=== PATIENT | female | born 1935 | race Caucasian/White ===

== ENCOUNTER → 2016-03-21 | Outpatient (CLI) | payer BC ==
[~2016-03-21] MED LIST: ESTCR
[2016-03-21 15:09] LABS: ESTIMATED AVERAGE GLUCOSE 123 mg/dl; HA1C FLAG Normal (Normal)
[2016-03-21 15:20] LABS: ALT/SGPT 24 U/L (12-78); BLOOD UREA NITROGEN 12 mg/dl (7-18); BUN/CREATININE RATIO 20.5 (10-20); CALCIUM 9.4 mg/dl (8.5-10.1); CARBON DIOXIDE 28 mmol/L (21-32); CHLORIDE 102 mmol/L (98-107); CHOLESTEROL 192 mg/dl (0-200); CREATININE 0.57 mg/dl (0.60-1.20); GLUCOSE 75 mg/dl (70-99); SODIUM 140 mmol/L (136-145); TRIGLYCERIDES 146 mg/dl (0-150); VERY LOW DENSITY LIPOPROT CALC 29 mg/dl
[2016-03-21 15:23] LABS: ALB/GLOB RATIO 0.9 (0.9-2); ALKALINE PHOSPHATASE 49 U/L (45-117); AST/SGOT 23 U/L (15-37); CHOLESTEROL/HDL RATIO 3.9; HDL CHOLESTEROL 49 mg/dl; LDL CHOLESTEROL CALCULATED 114 mg/dl
== END | disposition home or self-care (01) ==
LOC: C.LAB 12:37
PROVIDERS: ATTEND Internal Medicine Geriatric Medicine
DX: E78.5 Hyperlipidemia, unspecified (principal); R73.9 Hyperglycemia, unspecified; I10 Essential (primary) hypertension; L57.0 Actinic keratosis

== ENCOUNTER → 2016-10-17 | Outpatient (CLI) | payer BC ==
[2016-10-17 16:44] LABS: BASO % 0.5 %; BASO ABS # 0.03 K/uL (0-0.2); COMPLETE YES; EOS % 3.9 %; HEMATOCRIT 38.7 % (37-47); IG% 0.2 %; LYMPH ABS # 2.04 K/uL (1.2-3.4); MEAN CELL VOLUME 90.8 fL (80-100); MEAN CORPUSCULAR HEMOGLOBIN 31.2 pg (25-34); MEAN CORPUSCULAR HGB CONC 34.4 g/dl (32-36); MEAN PLATELET VOLUME 10.3 fL (7.4-10.4); MONO % 9.2 %; NEUT % 50.2 %; PLATELET COUNT 261 K/uL (130-400); RED BLOOD COUNT 4.26 M/uL (4.2-5.4); WHITE BLOOD COUNT 5.66 K/uL (4.8-10.8)
[2016-10-17 17:10] LABS: BLOOD UREA NITROGEN 10 mg/dl (7-18); BUN/CREATININE RATIO 14.5 (10-20); CALCIUM 9.5 mg/dl (8.5-10.1); CARBON DIOXIDE 29 mmol/L (21-32); CHLORIDE 102 mmol/L (98-107); CREATININE 0.71 mg/dl (0.60-1.20); GLUCOSE 93 mg/dl (70-99); POTASSIUM 3.9 mmol/L (3.5-5.1); SODIUM 137 mmol/L (136-145)
[2016-10-17 17:21] LABS: CHOLESTEROL 191 mg/dl (0-200); CHOLESTEROL/HDL RATIO 3.2; HDL CHOLESTEROL 59 mg/dl; LDL CHOLESTEROL CALCULATED 100 mg/dl; TRIGLYCERIDES 162 mg/dl (0-150); VERY LOW DENSITY LIPOPROT CALC 32 mg/dl
== END | disposition home or self-care (01) ==
LOC: C.LAB 15:43
PROVIDERS: ATTEND Internal Medicine Geriatric Medicine
DX: M35.3 Polymyalgia rheumatica (principal); E03.9 Hypothyroidism, unspecified; R73.9 Hyperglycemia, unspecified; I10 Essential (primary) hypertension; E55.9 Vitamin D deficiency, unspecified; M81.0 Age-related osteoporosis without current pathological fracture; E78.5 Hyperlipidemia, unspecified

== ENCOUNTER → 2017-05-21 | Outpatient (CLI) | payer BC ==
[2017-05-21 10:34] LABS: HEMOGLOBIN A1C 5.8 % (4.5-5.6)
[2017-05-21 10:45] LABS: ALBUMIN 3.6 gm/dl (3.4-5.0); ALT/SGPT 26 U/L (12-78); AST/SGOT 21 U/L (15-37); BLOOD UREA NITROGEN 10 mg/dl (7-18); CALCIUM 8.8 mg/dl (8.5-10.1); CARBON DIOXIDE 27 mmol/L (21-32); CREATININE 0.67 mg/dl (0.60-1.20); GLUCOSE 93 mg/dl (70-99); POTASSIUM 3.7 mmol/L (3.5-5.1); SODIUM 137 mmol/L (136-145)
[2017-05-21 10:48] LABS: ALKALINE PHOSPHATASE 49 U/L (45-117); CHOLESTEROL 179 mg/dl (0-200); LDL CHOLESTEROL CALCULATED 95 mg/dl; TOTAL PROTEIN 7.4 gm/dl (6.4-8.2)
== END | disposition home or self-care (01) ==
LOC: C.LAB 09:15
PROVIDERS: ATTEND Physician Assistant Medical
DX: E78.5 Hyperlipidemia, unspecified (principal); I11.0 Hypertensive heart disease with heart failure; L57.0 Actinic keratosis; Z79.52 Long term (current) use of systemic steroids

== ENCOUNTER → 2017-07-11 | Outpatient (CLI) | payer BC | END | disposition home or self-care (01) | LOC: C.PAPS 16:09 | PROVIDERS: ATTEND Obstetrics & Gynecology | DX: L90.0 Lichen sclerosus et atrophicus (principal) ==

== ENCOUNTER 2024-06-25 21:29 | Inpatient (IN) ==
[~2024-06-25 21:29] MED LIST changes: +ATROPINE SULFATE 0.1 MG/ML 10ML SYR IV ONE; -ESTCR; +SODIUM BICARB 8.4% INJ 50 MEQ/50 ML SYR IV ONE; +fentaNYL citrate PF 100 MCG/2 ML VIAL IV ONE
[2024-06-25] MEDS ORDERED: STAT IV Infusion **Titration per Protocol STA ×2 (21:39→23:26)
--- NOTE | 2024-06-25 21:41 | Emergency Department Note ---
Impression & Plan Cardiac arrest Admission ED Provider Note HPI: History obtained from EMS report. The patient is a 88-year-old female who presents the emergency department in acute respiratory failure. Per EMS report the patient was eating dinner with her when she seemed to have an acute event where she began to cough and became short of breath. Patient then began to develop some significant increased work of breathing and EMS was contacted by her . En route, the patient developed significant respiratory distress and was initially placed on nonrebreather mask and then eventually bag mask ventilation secondary to development of lethargy and decreased respirations. On arrival here to the ED the patient is currently on bag mask ventilation. She appears to be lethargic as well as cyanotic and she is not able to provide any history. ROS: - Per HPI Differential Diagnosis: Acute decompensated respiratory failure, aspiration event, pulmonary embolism, acute coronary syndrome/ST elevation myocardial infarction, flash pulmonary edema, amongst other potential pathologies. *Outpatient medications and allergy history reviewed. PE: General: Lethargic, mildly cyanotic HEENT: Normocephalic, trachea midline Eyes: No scleral erythema Pulmonary: Coarse bilaterally with diminished breath sounds bilaterally Cardio: Regular rate and rhythm GI: Abdomen is soft to palpation, nondistended : No apparent suprapubic tenderness MSK: No evidence of trauma or malformation of the extremities, no edema Skin: No evidence of rash Neuro: Patient is lethargic Psychiatric: Not applicable INDEPENDENT INTERPRETATIONS: phototypesetting equipment monitor: (As interpreted by myself): - An order was placed for continuous cardiac monitoring - Patient was noted to be in sinus rhythm with a rate of 72 EKG: (As interpreted by myself): Rate: 152 Rhythm: Apparent atrial fibrillation with RVR Intervals: QTc 521 ms, otherwise within normal limits ST changes: No ST elevation Time: 8 Chest x-ray: (As interpreted by myself): ET tube appears to be in appropriate positioning with evidence of pulmonary edema Interventions provided in ED: - IV fentanyl, IV propofol bolus and drip, IV Levophed, IV Zosyn, IV fluid bolus, epinephrine, IV bicarbonate amp Endotracheal intubation: Rapid sequence intubation medications: None Utilizing glide scope sized 3 glide scope blade was advanced to the vallecula with visualization of the vocal cords. Visualization was lost secondary to frothy sputum and the GlideScope blade was then removed and cleansed. Blade was then reinserted with good visualization of the cords obtained. Size [7.5] endotracheal tube was advanced utilizing glide scope stylette and passed through the vocal cords under direct visualization. ET tube balloon was inflated. Appropriate color change was achieved with capnography. Breath sounds auscultated bilaterally following placement of the ET tube. Medical Decision Making: Shortly after the patient arrived, she became more alert and turned her body and showed resistance against bag mask ventilation, this was briefly halted secondary to the patient's mild agitation and the patient quickly became more lethargic and pale/cyanotic and bradycardic. Patient then acutely went into cardiac arrest and compressions were initiated. Patient was intubated at this time by myself with ongoing ACLS protocol in place, please see procedure note for details. Patient was given 2 rounds of epinephrine and 1 amp of sodium bicarb while compressions were ongoing, on pulse check the patient did have a strong palpable femoral pulse palpated by myself and therefore compressions were halted. Lab work was obtained that shows a mild leukocytosis of 15.35, hemoglobin is normal, platelet count is normal, CMP shows a hyponatremia 128, initial lactic acid is markedly elevated at 9.5, initial troponin is elevated at 231. EKG was obtained following patient's cardiac arrest that appears to be consistent with atrial fibrillation with a rate of 152. Patient was initially placed on propofol for sedation and also given a dose of IV fentanyl as she became more alert after the intubation when she regained pulses. She was hypertensive at this time, during the intubation frothy sputum was noted and in conjunction with her hypertension and acute respiratory failure I do have concern for a potential flash pulmonary edema. Other considerations would include aspiration pneumonia as her symptoms seem to have happened acutely when she was eating dinner with her this evening. Chest x-ray does appear to be consistent with patchy bilateral infiltrates, ET tube appears to be in appropriate positioning above the ebony. Blood cultures were ordered and the patient was started on IV Zosyn. The patient's oxygenation did improve greatly following endotracheal tube placement. OG tube was also placed. I discussed the patient's presentation with the on-call bowl sander midlevel provider as well as the on-call hospitalist, Dr. Bland. At this time we will plan for inpatient admission for further workup of the patient's acute respiratory failure and cardiac arrest. I discussed the patient's presentation and all of the above with her who later arrived here to the hospital. He is updated and aware and does confirm that the patient is full code. Patient was placed for admission in guarded condition. Consultants/Discussions held with other healthcare providers: - Hospitalist, Dr. Bland - Intensive care unit, Mounika Stinson PA-C / Dr. Arteaga (attending) Disposition discussion held by myself with: - Patient's * CRITICAL CARE TIME: ( 45 ) minutes - Stabilization of patient with acute respiratory failure/decompensation resulting ultimately in cardiac arrest and initiation of ACLS protocol, time spent at the bedside independent of procedures interpretation of diagnostic studies, discussion with family, discussion with other healthcare providers and arrangement of admission to the ICU. Diagnosis: 1. Acute hypoxic respiratory failure 2. Cardiac arrest, acute 3. Lactic acidosis, acute 4. Elevated troponin, acute Disposition: Admission to ICU Karan Contreras DO Emergency Medicine Past Med/Surg History Problem List (Updated 06/26/24 @ 02:15 by Karan Contreras DO) Cardiac arrest (Acute) Septic shock Lactic acidosis URI (upper respiratory infection) Multifocal pneumonia Acute hypoxic respiratory failure Respiratory arrest Chronic rhinitis Chronic cough Leg length discrepancy RLE 83.6 cm, LLE 82.6 cm Osteoarthritis of left knee Elevated hemoglobin A1c Vitamin D deficiency (Acute) Urge incontinence of urine (Acute) Stress incontinence in female (Acute) Polymyalgia rheumatica (Acute) Osteoporosis (Chronic) Lichen sclerosus et atrophicus (Acute) Gastroesophageal reflux disease (Acute) Dyslipidemia (Acute) Chronic osteoarthritis (Acute) History of arthroscopy LEFT KNEE MENISCUS SURGERY Hypertension (Chronic) Medical History Actinic keratosis Cataract Chronic neck pain Cystocele, midline Herpes zoster History of prediabetes Postherpetic neuralgia Rectocele Stricture, artery Subclinical hypothyroidism Surgical History History of bladder suspension procedure History of carpal tunnel release History of cataract surgery History of colonoscopy History of esophagogastroduodenoscopy (EGD) History of hysterectomy History of surgery History of tonsillectomy Family History Mother Congestive heart failure Diabetes Colon cancer Father Unknown Colon cancer Benign polyp of large intestine (Polyps) Brother Alzheimer disease Denies family history of Ovarian cancer Prostate cancer Myocardial infarction Breast cancer Social History Smoking Status: Never smoker Second Hand Exposure: No; Do You Dip or Chew Tobacco: No; Hx Alcohol Use: Yes Alcohol type: wine Alcohol Intake Frequency: 4 or More x per/Week Hx Substance Use: No Preferred Language: Romanian Communication Ability: Impaired Visual Impairment: No Limitations Hearing Ability: Normal Last Trimmer Required: No Beliefs That Will Affect Care: None marital status: Current Living Situation: Spouse current occupational status: retired How many Children do You have: 5 Other Information That Helps Us Care for You: No Feels Safe at Home: Yes Safety Concerns: Feels Safe At This Time Childhood Exposure to Second-Hand Smoke: Yes Diet: regular caffeine: Yes during the past year weight has: remained stable Dental Care, Regularly: Yes Physical Activity Frequency: Daily Seatbelt Use: always Sunscreen Use: Yes Do you think of yourself as: straight/heterosexual Assistive Devices: Glasses Allergies Allergies Allergy/AdvReac Type Severity Reaction Status Date / Time ciprofloxacin [From Cipro] Allergy Unknown Unknown Verified 06/25/24 21:48 mold Allergy Unknown Verified 06/25/24 21:48 Quinolones AdvReac Mild DIARRHEA Verified 04/23/24 14:50 Home Meds Home Medications Medication Instructions Recorded Confirmed calcium 200 mg (as 2 tab PO DAILY 11/19/18 06/25/24 citrate)-vitamin D3 6.25 mcg (250 unit) tablet multivitamin 1 tab PO DAILY 11/24/18 06/25/24 vit C 250 mg-vit E 200 unit-zinc 1 tab PO BID 04/24/23 06/25/24 12.5 mg-copper 1 [id number] tablet (ICaps AREDS2 (copper citrate)) cholecalciferol (vitamin D3) 25 25 mcg PO DAILY 11/12/23 06/25/24 mcg (1,000 unit) capsule fluoride (sodium) 1.1 % dental gel 1 applic dental DAILY 06/25/24 06/25/24 gabapentin 100 mg capsule See Rx Instructions .Route .COMPLEX 06/25/24 06/25/24 losartan 100 mg tablet 100 mg PO DAILY 06/25/24 06/25/24 Previous Rx's Medication Instructions Recorded fluticasone propionate 50 2 spray intranasal DAILY PRN nasal 04/23/24 mcg/actuation nasal congestion #16 grams spray,suspension ipratropium bromide 42 mcg (0.06 2 spray intranasal .COMPLEX #15 mL 04/23/24 %) nasal spray estradiol 0.01% (0.1 mg/gram) 3 g vaginal 2XWK #42.5 grams 05/31/24 vaginal cream (Estrace) codeine 10 mg-guaifenesin 100 mg/5 5 ml PO BID PRN cough #118 mL 06/08/24 mL oral liquid guaifenesin 200 mg/5 mL oral liquid 200 mg (5 mL) PO Q4H PRN cough 06/17/24 #473 mL Results & Data (ED) Vital Signs Vital Signs - 24 hr 06/25/24 21:32 06/25/24 21:33 06/25/24 21:34 Temperature Temperature Source Pulse Rate 25 L 140 H 28 L Pulse Rate from SpO2 Sensor Pulse Rhythm Pulse Strength Respiratory Rate 24 Respiratory Effort / Characteristics Respiratory Depth Blood Pressure 190/108 H Blood Pressure Mean 117 Blood Pressure Position Pulse Oximetry Oxygen Delivery Method Mechanical Vent Fraction of Inspired Oxygen Sepsis Recent Fever Within 48 Hours Sepsis New/Unexplained Change in Mental Status Sepsis Action Taken by Nursing 06/25/24 21:36 06/25/24 21:39 06/25/24 21:40 Temperature Temperature Source Pulse Rate 148 H 150 H 137 H Pulse Rate from SpO2 Sensor Pulse Rhythm Pulse Strength Respiratory Rate 24 24 Respiratory Effort / Characteristics Respiratory Depth Blood Pressure 224/138 H Blood Pressure Mean 185 Blood Pressure Position Pulse Oximetry 92 Oxygen Delivery Method Mechanical Vent Fraction of Inspired Oxygen 80 Sepsis Recent Fever Within 48 Hours Sepsis New/Unexplained Change in Mental Status Sepsis Action Taken by Nursing 06/25/24 21:44 06/25/24 21:59 06/25/24 22:00 Temperature Temperature Source Pulse Rate 144 H 130 H 135 H Pulse Rate from SpO2 Sensor 136 H Pulse Rhythm Pulse Strength Respiratory Rate 24 25 H 24 Respiratory Effort / Characteristics Respiratory Depth Blood Pressure 212/124 H 148/97 H 108/67 Blood Pressure Mean 162 114 80 Blood Pressure Position Pulse Oximetry 94 Oxygen Delivery Method Mechanical Vent Mechanical Vent Mechanical Vent Fraction of Inspired Oxygen Sepsis Recent Fever Within 48 Hours Sepsis New/Unexplained Change in Mental Status Sepsis Action Taken by Nursing 06/25/24 22:06 06/25/24 22:06 06/25/24 22:06 Temperature 36.8 C Temperature Source Mccoy Cath ( Temp Sensing) Pulse Rate 132 H Pulse Rate from SpO2 Sensor Pulse Rhythm Regular Pulse Strength Normal Respiratory Rate 22 Respiratory Effort / Characteristics Mechanically Ventilated Mechanically Ventilated Respiratory Depth Normal Blood Pressure 148/97 H Blood Pressure Mean 114 Blood Pressure Position Lying Pulse Oximetry 94 Oxygen Delivery Method Mechanical Vent Mechanical Vent Mechanical Vent Fraction of Inspired Oxygen Sepsis Recent Fever Within 48 Hours No Sepsis New/Unexplained Change in Mental Status N/A Sepsis Action Taken by Nursing No Action Required 06/25/24 22:06 06/25/24 22:19 06/25/24 22:21 Temperature Temperature Source Pulse Rate 133 H 135 H Pulse Rate from SpO2 Sensor 132 H Pulse Rhythm Regular Pulse Strength Respiratory Rate 22 20 25 H Respiratory Effort / Characteristics Respiratory Depth Blood Pressure 71/49 L Blood Pressure Mean 56 Blood Pressure Position Pulse Oximetry 94 93 Oxygen Delivery Method Mechanical Vent Mechanical Vent Fraction of Inspired Oxygen 100 Sepsis Recent Fever Within 48 Hours Sepsis New/Unexplained Change in Mental Status Sepsis Action Taken by Nursing 06/25/24 22:24 06/25/24 22:25 06/25/24 22:26 Temperature Temperature Source Pulse Rate 120 H 122 H Pulse Rate from SpO2 Sensor Pulse Rhythm Pulse Strength Respiratory Rate 22 Respiratory Effort / Characteristics Respiratory Depth Blood Pressure 79/48 L 71/49 L Blood Pressure Mean 61 56 Blood Pressure Position Pulse Oximetry 94 Oxygen Delivery Method Mechanical Vent Fraction of Inspired Oxygen Sepsis Recent Fever Within 48 Hours Sepsis New/Unexplained Change in Mental Status Sepsis Action Taken by Nursing 06/25/24 22:30 06/25/24 22:33 06/25/24 22:35 Temperature Temperature Source Pulse Rate 122 H Pulse Rate from SpO2 Sensor 122 H Pulse Rhythm Pulse Strength Respiratory Rate 24 Respiratory Effort / Characteristics Respiratory Depth Blood Pressure 77/48 L 77/43 L 67/48 L Blood Pressure Mean 55 54 55 Blood Pressure Position Pulse Oximetry 96 Oxygen Delivery Method Mechanical Vent Fraction of Inspired Oxygen Sepsis Recent Fever Within 48 Hours Sepsis New/Unexplained Change in Mental Status Sepsis Action Taken by Nursing Laboratory Data 06/25/24 21:41 06/25/24 21:41 Lab Results 06/25/24 Range/Units 21:41 WBC 15.35 H (4.8-10.8) K/ul RBC 4.45 (4.20-5.40) M/uL Hgb 13.3 (12.0-16.0) g/dl Hct 41.4 (37.0-47.0) % MCV 93.0 (80.0-100.0) fL MCH 29.9 (25.0-34.0) pg MCHC 32.1 (32.0-36.0) g/dL RDW Std Deviation 45.0 (36.4-46.3) fL RDW Coeff of Jenny 13.3 (11.5-14.5) % Plt Count 270 (130-400) K/uL MPV 10.2 (9.4-12.4) fL Immature Gran % (Auto) 1.2 % Neut % (Auto) 56.4 % Lymph % (Auto) 37.7 % [place] % (Auto) 3.8 % Eos % (Auto) 0.3 % Baso % (Auto) 0.6 % Neut # (Auto) 8.65 H (1.40-6.50) K/uL Lymph # (Auto) 5.79 H (1.20-3.40) K/uL [place] # (Auto) 0.59 (0.11-0.59) K/uL Eos # (Auto) 0.05 (0.00-0.50) K/uL Baso # (Auto) 0.09 (0.00-0.20) K/uL Immature Gran # (Auto) 0.18 (0.01-0.20) K/uL Absolute Nucleated RBC 0.04 (0.00-0.12) K/uL Nucleated RBC % (auto) 0.3 % VBG pH < 7.00 L (7.36-7.41) VBG pCO2 84 H (38-50) mmHg VBG pO2 37 mmHg VBG HCO3 TNP VBG O2 Saturation < 60.0 % VBG Base Excess TNP Sodium 128 L (136-145) mmol/L Potassium 3.7 (3.5-5.1) mmol/L Chloride 95 L (98-107) mmol/L Carbon Dioxide 18 L (21-32) mmol/L Anion Gap 15 H (3-11) BUN 8 (6-23) mg/dl Creatinine 0.58 L (0.6-1.2) mg/dl Est Cr Clr Drug Dosing Not Reportable eGFR 88.08 BUN/Creatinine Ratio 13.8 (10-20) Glucose 291 H (70-99(Fasting)) mg/dl Lactate 9.5 H* (0.4-2.0) mmol/L Calcium 8.3 L (8.6-10.3) mg/dl Total Bilirubin 0.5 (0.2-1.0) mg/dl AST 32 (13-39) U/L ALT 18 (7-52) U/L Alkaline Phosphatase 73 (34-104) U/L Troponin I High Sens 231.9 H* (0-14) pg/ml Total Protein 6.5 (6.0-8.3) gm/dl Albumin 3.3 L (3.4-5.0) gm/dl Globulin 3.2 (2.5-4.0) gm/dl Albumin/Globulin Ratio 1.0 (0.9-2) Lipase 9 L (11-82) U/L Administered Medications Albuterol (Albut/Ipratrop 3mg/0.5mg Neb 3 Ml Vial) 3 ml NEB Q6R [facility]; Protocol Stop: 07/26/24 00:59 Last Admin: 06/26/24 01:54 Dose: 3 ml Documented By: EML Fentanyl Citrate (Fentanyl Bolus From Bag) 50 mcg IV Q60M PRN PRN Reason: Pain or Agitation Stop: 07/09/24 23:25 Last Admin: 06/26/24 00:32 Dose: 50 mcg Documented By: AUBRIEP Co-signed By: FRANK Propofol (Diprivan) 1,000 mg in 100 mls @ 7.95 mls/hr IV .[id number] [facility]; Protocol Stop: 06/28/24 22:14 Last Titration: 06/26/24 01:27 Dose: 25 mcg/kg/min, 8 mls/hr Documented By: Titration: 06/25/24 23:45 Dose: 20 mcg/kg/min, 6.4 mls/hr Documented By: Titration: 06/25/24 23:30 Dose: 15 mcg/kg/min, 4.8 mls/hr Documented By: Titration: 06/25/24 22:33 Dose: 10 mcg/kg/min, 3.2 mls/hr Documented By: Titration: 06/25/24 22:24 Dose: 20 mcg/kg/min, 6.4 mls/hr Documented By: Admin: 06/25/24 22:15 Dose: 15 mcg/kg/min, 4.8 mls/hr Documented By: JULIA Azithromycin (Zithromax) 500 mg in 255 mls @ 127.5 mls/hr IV Q24H [facility] Stop: 06/30/24 22:59 Last Admin: 06/25/24 23:52 Dose: 127.5 mls/hr Documented By: SAUD Norepinephrine Bitartrate (Levophed/D5w) 4 mg in 250 mls @ 13.913 mls/hr IV .[id number] [facility]; Protocol Stop: 07/25/24 22:44 Last Titration: 06/26/24 01:33 Dose: 0.07 mcg/kg/min, 13.9 mls/hr Documented By: FRANK Co-signed By: SAUD Admin: 06/25/24 22:34 Dose: 0.05 mcg/kg/min, 9.9 mls/hr Documented By: JULIA Co-signed By: UMU Fentanyl Citrate (Fentanyl Citrate) 2,500 mcg in 250 mls @ 7.5 mls/hr IV .[id number] [facility]; Protocol Stop: 07/09/24 23:29 Last Titration: 06/26/24 01:28 Dose: 75 mcg/hr, 7.5 mls/hr Documented By: FRANK Co-signed By: NEAL Admin: 06/25/24 23:55 Dose: 50 mcg/hr, 5 mls/hr Documented By: SAUD Co-signed By: PRADIP Dexamethasone 20 mg/ Dextrose 30 mls @ 60 mls/hr IV QAM [facility] Stop: 07/26/24 01:34 Last Admin: 06/26/24 01:55 Dose: 60 mls/hr Documented By: FRANK Insulin Aspart (Insulin Aspart Per Unit Charge) 0 units SC Q6 [facility] Stop: 07/26/24 00:59 Last Admin: 06/26/24 01:40 Dose: 3 units Documented By: FRANK Co-signed By: SAUD Miscellaneous (Icu Protocol For Hyperglycemia) 1 each N/A Q6 [facility] Stop: 06/28/24 00:00 Last Admin: 06/26/24 00:29 Dose: Not Given Documented By: SAUD Propofol (Propofol Bolus From Bag) 20 mg IV Q5M PRN PRN Reason: Sedation Stop: 06/28/24 22:07 Last Admin: 06/26/24 00:01 Dose: 20 mg Documented By: SAUD Co-signed By: FRANK Discontinued Medications Fentanyl Citrate (Fentanyl Citrate Pf 100 Mcg/2 Ml Vial) 50 mcg IV NOW STA Stop: 06/25/24 21:48 Last Admin: 06/25/24 22:00 Dose: Not Given Documented By: ADA Fentanyl Citrate (Fentanyl Citrate Pf 100 Mcg/2 Ml Vial) 50 mcg IV ONCE ONE Stop: 06/25/24 21:49 Last Admin: 06/25/24 21:48 Dose: 50 mcg Documented By: ADA Fentanyl Citrate (Fentanyl Citrate Pf 100 Mcg/2 Ml Vial) 50 mcg IV NOW STA Stop: 06/25/24 21:50 Last Admin: 06/25/24 21:55 Dose: Not Given Documented By: ADA Sodium Chloride (Nss) 1,000 mls @ 999 mls/hr IV .Q1H1M ONE Stop: 06/25/24 22:39 Last Infusion: 06/25/24 23:17 Dose: Infused Documented By: Admin: 06/25/24 22:16 Dose: 999 mls/hr Documented By: JULIA Sodium Bicarbonate 150 meq/ (Sterile Water) 1,150 mls @ 200 mls/hr IV .Q5H45M [facility] Stop: 07/25/24 22:14 Last Admin: 06/25/24 23:53 Dose: Not Given Documented By: SAUD Vancomycin HCl 1,000 mg/ (Sodium Chloride) 520 mls @ 200 mls/hr IV NOW ONE Stop: 06/26/24 01:20 Last Admin: 06/25/24 23:52 Dose: 200 mls/hr Documented By: SAUD Cefepime HCl (Maxipime 2000mg) 2,000 mg in 20 mls @ 5 mls/min IV NOW STA; Protocol Stop: 06/25/24 23:32 Last Admin: 06/25/24 23:52 Dose: 5 mls/min Documented By: SAUD Lactated Ringer's (Lr) 1,000 mls @ 999 mls/hr IV .Q1H1M ONE Stop: 06/26/24 01:17 Last Infusion: 06/26/24 01:30 Dose: Infused Documented By: Admin: 06/26/24 00:29 Dose: 999 mls/hr Documented By: LLP Miscellaneous (Rapid Sequence Induction Bag) Confirm Administered Dose 1 each N/A .STK-MED ONE Stop: 06/25/24 21:30 Last Admin: 06/25/24 22:16 Dose: 1 each Documented By: JULIA Blanca (Stat Iv Infusion Titration Per Protocol) 1 each N/A NOW STA Stop: 06/25/24 21:51 Last Admin: 06/25/24 23:56 Dose: 1 each Documented By: SAUD Blanca (Stat Iv Infusion Titration Per Protocol) 1 each N/A NOW STA Stop: 06/25/24 21:57 Last Admin: 06/25/24 23:56 Dose: 1 each Documented By: SUAD Blanca (Stat Iv Infusion Titration Per Protocol) 1 each N/A NOW STA Stop: 06/25/24 22:09 Last Admin: 06/25/24 23:55 Dose: 1 each Documented By: SAUD Blanca (Stat Iv Infusion Titration Per Protocol) 1 each N/A NOW STA Stop: 06/25/24 22:32 Last Admin: 06/25/24 23:55 Dose: 1 each Documented By: SAUD Blanca (Patient's Height &/Or Weight Needed) 1 each N/A NOW STA Stop: 06/25/24 21:33 Last Admin: 06/25/24 23:56 Dose: 1 each Documented By: SAUD Norepinephrine Bitartrate (Norepinephrine/D5w 4 Mg/250 Ml) Confirm Administered Dose 4 mg IV .STK-MED ONE Stop: 06/25/24 21:38 Last Admin: 06/25/24 21:57 Dose: Not Given Documented By: ADA Propofol (Propofol Iv Emulsion 10 Mg/Ml 100 Ml Vial) Confirm Administered Dose 1,000 mg IV .STK-MED ONE Stop: 06/25/24 21:52 Last Admin: 06/25/24 22:00 Dose: Not Given Documented By: ADA Propofol (Propofol Bolus From Bag) 20 mg IV Q5M PRN PRN Reason: Sedation Stop: 06/28/24 21:49 Last Admin: 06/25/24 21:58 Dose: 20 mg Documented By: ADA Co-signed By: JULIA Propofol (Propofol Bolus From Bag) 20 mg IV Q5M PRN PRN Reason: Sedation Stop: 06/28/24 21:55 Last Admin: 06/25/24 22:20 Dose: 20 mg Documented By: JULIA Co-signed By: SHEYLA Imaging Data Radiologist's Impression: KUB X-Ray 06/25/24 21:44 Exam(s): XR KUB EXAM: XR Abdomen, 1 View CLINICAL HISTORY: Reason for exam: og tube. TECHNIQUE: Frontal supine view of the abdomen/pelvis. COMPARISON: No relevant prior studies available. FINDINGS/IMPRESSION: Enteric tube tip in the stomach. Electronically signed by: Chela Hernandez M.D. 06/25/24 23:18 PM Discharge Plan Visit Data Chief Complaint: Respiratory Distress Stated Complaint: SOB, Cough ED Provider: Karan Contreras Discharge Problem: Cardiac arrest Patient Disposition: Admitted As Inpatient Discharge Instructions Interventions: ED Discharge Assessment Last Done: 06/25/24 23:32
[2024-06-25] MEDS ORDERED: NOREPINEPHRINE/D5W 4 MG/250 ML PLCT IV SCH (21:45)
[2024-06-25] MEDS: fentaNYL citrate PF 100 MCG/2 ML VIAL IV ONE (21:48)
[2024-06-25 21:54] LABS: Oxygen Saturation VBG < 60.0 %; PCO2 VBG 84 mmHg (38-50); PO2 VBG 37 mmHg
[2024-06-25] MEDS: fentaNYL citrate PF 100 MCG/2 ML VIAL IV STA ×2 (21:55→22:00)
[2024-06-25] MEDS: NOREPINEPHRINE/D5W 4 MG/250 ML IV ONE (21:57)
[2024-06-25] MEDS: PROPOFOL BOLUS FROM BAG IV PRN ×2 (21:58→22:20)
[2024-06-25] MEDS: PROPOFOL IV EMULSION 10 MG/ML 100 ML VIAL IV ONE (22:00)
[2024-06-25] MEDS ORDERED: propofoL 1,000 MG/100 ML VIAL IV SCH ×2 (22:00)
[2024-06-25 22:05] LABS: Hematocrit (blood only) 41.4 % (37.0-47.0); Hemoglobin 13.3 g/dl (12.0-16.0); Mean Corpuscular Hemoglobin 29.9 pg (25.0-34.0); Mean Corpuscular Hgb Conc 32.1 g/dL (32.0-36.0); Mean Platelet Volume 10.2 fL (9.4-12.4); Nucleated RBC # (auto) 0.04 K/uL (0.00-0.12); Nucleated RBC % (auto) 0.3 %; Platelet Count 270 K/uL (130-400); RDW Coefficient of Variation 13.3 % (11.5-14.5); Red Blood Count 4.45 M/uL (4.20-5.40); White Blood Count 15.35 K/ul (4.8-10.8)
[2024-06-25 22:07] LABS: pH VBG < 7.00 (7.36-7.41)
--- NOTE | 2024-06-25 22:07 | Critical Care Consultation ---
Date of Consultation June 25, 2024 Assessment & Plan (1) Respiratory arrest: (2) Acute hypoxic respiratory failure: (3) Multifocal pneumonia: (4) URI (upper respiratory infection): (5) Lactic acidosis: (6) Septic shock: Plan Reason Critically Ill: 1. Distributive shock, as result of vasoplegia +/- sepsis 2. Multifocal pneumonia, post-URI 3. Lactic acidosis 4. Acute hypoxic respiratory failure 2/2 #2 5. ARDS 2/2 #2 6. Respiratory arrest 7. Hypercapnia 2/2 #6, resolved 8. Hyperglycemia without history of DM 9. NSTEMI, type II Neuro - RASS GOAL -2 while respiratory status is critical Propofol and fentanyl gtt APAP PRN fever Daily ETOH, monitor off CIWA Cardiac - Continue norepinephrine for MAP goal > 65mmHg Admit EKG awaiting transmission, if repeat EKG shows ischemia we will start heparin infusion Troponin 281 in ED, likely demand ischemia. Trend to peak POCUS performed in ICU, no focal WMA, RV normal size without septal flattening, LVEF grossly intact, IVC > 50% collapsible Respiratory - Mechanically ventilated Not a current candidate for SAT/SBT SpO2 goal > 92% Pulmonary hygiene DuoNebs, consider Dexamethasone if no clinical improvement Repeat ABG improved with pH > 7.2. Will transition to ARDSNET protocol with high PEEP low Vt. Maintain RR 20. PEEP to 10 Repeat ABG in AM Sputum culture, BioFire pending GI - Diet: NPO except meds via OGT, TF in AM SUP: H2B Bowel regimen: Miralax RENAL/LYTES - Replete electrolytes as indicated Mccoy for accurate I/Os Trend lactate to clearance 1L LR given in ICU, judicious IVF Maintain net even to net negative ENDO - BG 140-180 per SCCM guidelines ISS if needed while inpatient Random cortisol pending Was on chronic prednisone but has been off for a while HEME - No acute concerns ID - Continue cefepime and azithromycin. Given post URI PNA and chronic autoimmune condition will cover for MRSA pending culture data BC x2 pending (drawn in ICU AFTER antibiotics given), UA pending, MRSA pending, procalcitonin pending, sputum culture pending, BioFire pending LINES/TUBES/DRAINS - PIV x2 Mccoy (Day #1) ETT (Day #1) OGT (Day #1) Patient's has consented for CVC if needed DVT PROPHYLAXIS - Enoxaparin DISPOSITION - ICU CODE STATUS - FULL per I have personally spent 46 minutes of critical care time in the direct management of this patient. This is a life/limb threatening event. This includes time spent evaluating patient, direct bedside care, chart review, placing orders, interpretation of diagnostic studies, discussion with consultants, patient, and family members, as well as other required patient management activities. This time is exclusive of all separately billable procedures, and teaching time and separate from and in addition to any other critical care service time. Thank you for allowing us to participate in the care of this patient. Please r efer to my attending physician's documentation for any further recommendations. Addendum 0430: Unfortunately the patient continues to clinically decline. She is now requiring 3 vasopressors to maintain perfusion. Despite ventilator optimization her pO2 remains in the 60s with PEEP 10 and FiO2 1.0. Given her frequent ventilator dyssynchrony I provided rocuronium bolus x1 and transitioned patient to ARDSNET lung-protective ventilation via high PEEP low Vt. With paralytic and ventilator changes she has shown improvement. When bolus wore off she again became dyssynchronous with the ventilator, thus we initiated continuous NMB. Fio2 is weaned to 60% with SpO2 remaining > 90%. LA improving slowly, now 6.8. CT Chest was finally reported - multiple fractures ribs c/w CPR, multifocal pneumonia, areas of pulmonary edema which are likely 2/2 the CPR. We will avoid additional IVF and consider gentle diuresis pending her AM metabolic panel. She has no history of heart failure, well-controlled HTN at baseline. PCR + COVID. Started on Decadron 20mg IV QD. Will continue ventilator optimization for now, could benefit from prone positioning, defer to Dr. Arteaga's expertise. Patient has made minimal urine overnight, total < 100cc. I do feel at this juncture she is developing multisystem organ failure and prognosis is extremely guarded. remains at bedside and reiterates current wishes for CPR in the event of cardiac arrest. History of Present Illness Reason for Consultation: Respiratory arrest Requesting Physician: Edwina Attending Physician: Edwina History of Present Illness Ms. Sofia Moore is an 88YOF with a history of [] who presented to [facility] ED from home on the evening of 06/25/2024 due to respiratory distress. Per report, patient was resting at home and developed a coughing fit with subsequent emesis and respiratory distress. EMS found her to be bradycardic to 30s. On arrival to ED the patient sustained cardiac arrest and received CPR x3 minutes, epinephrine x2 before ROSC. Patient was seen in ED A01 as I responded to CODE BLUE. She is intubated. Hypertensive to 224 systolic. Tachycardic to 150s. SpO2 90s on 100% FiO2. She awakens to voice. Follows commands. Pupils 3mm and reactive. Fentanyl and Propofol given with improvement in hemodynamics. Initial VBG pH < 7.00/84/37/?. This was immediately post-arrest. Remainder of labs remarkable for leukocytosis with neutrophil predominance, mild hyponatremia, HAGMA, LA 9.4, elevated troponin. CXR shows multifocal opacities on my view, awaiting read. CT ordered to further evaluate and is pending at this juncture. provided additional history. He and patient have both recently had URI with symptoms of coughing and congestion. For about 1 week Sofia has been feeling unwell. She has a chronic cough but in the past few days it has become productive of copious yellow sputum. This evening she had a prolonged coughing fit and vomited. denies aspiration, states it was small and did not even contain her recent meal. Allergies Allergy/AdvReac Type Severity Reaction Status Date / Time ciprofloxacin [From Cipro] Allergy Unknown Unknown Verified 06/25/24 21:48 mold Allergy Unknown Verified 06/25/24 21:48 Quinolones AdvReac Mild DIARRHEA Verified 04/23/24 14:50 Home Medications Medication Instructions Recorded Confirmed Type calcium 200 mg (as 2 tab PO DAILY 11/19/18 06/25/24 History citrate)-vitamin D3 6.25 mcg (250 unit) tablet multivitamin 1 tab PO DAILY 11/24/18 06/25/24 History vit C 250 mg-vit E 200 unit-zinc 1 tab PO BID 04/24/23 06/25/24 History 12.5 mg-copper 1 [id number] tablet (ICaps AREDS2 (copper citrate)) cholecalciferol (vitamin D3) 25 25 mcg PO DAILY 11/12/23 06/25/24 History mcg (1,000 unit) capsule fluticasone propionate 50 2 spray intranasal DAILY PRN nasal 04/23/24 06/25/24 Rx mcg/actuation nasal congestion #16 grams spray,suspension ipratropium bromide 42 mcg (0.06 2 spray intranasal .COMPLEX #15 mL 04/23/24 06/25/24 Rx %) nasal spray estradiol 0.01% (0.1 mg/gram) 3 g vaginal 2XWK #42.5 grams 05/31/24 06/25/24 Rx vaginal cream (Estrace) codeine 10 mg-guaifenesin 100 mg/5 5 ml PO BID PRN cough #118 mL 06/08/24 06/25/24 Rx mL oral liquid guaifenesin 200 mg/5 mL oral liquid 200 mg (5 mL) PO Q4H PRN cough 06/17/24 06/25/24 Rx #473 mL fluoride (sodium) 1.1 % dental gel 1 applic dental DAILY 06/25/24 06/25/24 History gabapentin 100 mg capsule See Rx Instructions .Route .COMPLEX 06/25/24 06/25/24 History losartan 100 mg tablet 100 mg PO DAILY 06/25/24 06/25/24 History Patient History Medical History Actinic keratosis Cataract Chronic neck pain Cystocele, midline Herpes zoster History of prediabetes Postherpetic neuralgia Rectocele Stricture, artery Subclinical hypothyroidism Surgical History History of bladder suspension procedure History of carpal tunnel release History of cataract surgery History of colonoscopy History of esophagogastroduodenoscopy (EGD) History of hysterectomy History of surgery History of tonsillectomy Family History Mother Congestive heart failure Diabetes Colon cancer Father Unknown Colon cancer Benign polyp of large intestine (Polyps) Brother Alzheimer disease Denies family history of Ovarian cancer Prostate cancer Myocardial infarction Breast cancer Social History Smoking Status: Never smoker Second Hand Exposure: No; Do You Dip or Chew Tobacco: No; Hx Alcohol Use: Yes Alcohol type: wine Alcohol Intake Frequency: 4 or More x per/Week Hx Substance Use: No Preferred Language: Tristanian Communication Ability: Impaired Visual Impairment: No Limitations Hearing Ability: Normal Analytical Statistician Required: No Beliefs That Will Affect Care: None marital status: Current Living Situation: Spouse current occupational status: retired How many Children do You have: 5 Other Information That Helps Us Care for You: No Feels Safe at Home: Yes Safety Concerns: Feels Safe At This Time Childhood Exposure to Second-Hand Smoke: Yes Diet: regular caffeine: Yes during the past year weight has: remained stable Dental Care, Regularly: Yes Physical Activity Frequency: Daily Seatbelt Use: always Sunscreen Use: Yes Do you think of yourself as: straight/heterosexual Assistive Devices: Glasses Review of Systems Review of Systems: Unobtainable due to endotracheal tube Physical Exam Constitutional: + ill appearing and + mechanically venti lated; no acute distress Eyes: PERRL, conjunctivae normal, anicteric sclerae ENMT: ETT in place Neck: trachea midline, no thyromegaly Respiratory: + labored breathing and + tachypneic Auscultation: + rales and + rhonchi diffuse rhonchi Cardiovascular: RRR, no murmur, no edema Gastrointestinal (Abdomen): normal bowel sounds, soft, nontender, no hepatosplenomegaly Musculoskeletal: no cyanosis or clubbing, extremities motor strength 5/5 Skin: no rashes, warm and dry Neurologic: moves all extremities follows commands, moves all extremities Genitourinary: Mccoy in place draining yellow urine Results & Data Results & Data Vital Signs (Past 12 Hours) Reviewed Laboratory Results Reviewed Diagnostic Findings Reviewed Medications Administered See [facility] Procedure Codes (Charges) Ventilator Management Ventilator Managment: 36813 Ventilation assist and management; Hospital in/, Coding Level of Care Code 33385 CRITICAL CARE 1ST 30-74M Diagnoses Respiratory arrest R09.2 Acute hypoxic respiratory failure J96.01 Multifocal pneumonia J18.9 URI (upper respiratory infection) J06.9 Lactic acidosis E87.20 Septic shock A41.9; R65.21 CPT Codes Ventilator Management - Ventilator Managment: [id number] Ventilation assist and management; Hospital in/obs, int ([id number]) Time Spent (min) 46
[2024-06-25] MEDS ORDERED: ALBUTEROL 0.083% NEBU SOLN 3 ML VIAL NEB PRN (22:11)
[2024-06-25] MEDS ORDERED: PIPERACILLIN/TAZOBACTAM 4.5 GM/100 ML BAG IV ONE (22:12)
[2024-06-25] MEDS: propofoL 1,000 MG/100 ML VIAL IV SCH (22:15)
[2024-06-25] MEDS: SODIUM CHLORIDE 0.9% 1,000 ML IV ONE (22:16)
[2024-06-25] MEDS: RAPID SEQUENCE INDUCTION BAG ONE (22:16)
[2024-06-25 22:20] LABS: Albumin Level 3.3 gm/dl (3.4-5.0); Anion Gap 15 (3-11); Bilirubin,Total 0.5 mg/dl (0.2-1.0); Calcium 8.3 mg/dl (8.6-10.3); Carbon Dioxide 18 mmol/L (21-32); Chloride 95 mmol/L (98-107); Potassium 3.7 mmol/L (3.5-5.1); Sodium 128 mmol/L (136-145)
[2024-06-25 22:26] LABS: Alanine Aminotransferase 18 U/L (7-52); Alkaline Phosphatase 73 U/L (34-104); Aspartate Aminotransferase 32 U/L (13-39); BUN Creatinine Ratio 13.8 (10-20); Blood Urea Nitrogen 8 mg/dl (6-23); Globulin 3.2 gm/dl (2.5-4.0); Glucose 291 mg/dl (70-99(Fasting)); Lipase 9 U/L (11-82); Total Protein 6.5 gm/dl (6.0-8.3)
[2024-06-25 22:29] LABS: Troponin I High Sensitivity 231.9 pg/ml (0-14)
[2024-06-25] MEDS ORDERED: VANCOMYCIN CONSULT ACTIVE PRN (22:31)
[2024-06-25] MEDS: NOREPINEPHRINE/D5W 4 MG/250 ML PLCT IV SCH (22:34)
[2024-06-25 22:57] LABS: Basophils # (auto) 0.09 K/uL (0.00-0.20); Basophils % (auto) 0.6 %; Eosinophils # (auto) 0.05 K/uL (0.00-0.50); Eosinophils % (auto) 0.3 %; Immature Granulocytes # (auto) 0.18 K/uL (0.01-0.20); Immature Granulocytes % (auto) 1.2 %; Lymphocytes # (auto) 5.79 K/uL (1.20-3.40); Lymphocytes % (auto) 37.7 %; Monocytes # (auto) 0.59 K/uL (0.11-0.59); Monocytes % (auto) 3.8 %; Neutrophils # (auto) 8.65 K/uL (1.40-6.50); Neutrophils % (auto) 56.4 %
--- NOTE | 2024-06-25 23:19 | XRay Report ---
Exam(s): XR KUB EXAM: XR Abdomen, 1 View CLINICAL HISTORY: Reason for exam: og tube. TECHNIQUE: Frontal supine view of the abdomen/pelvis. COMPARISON: No relevant prior studies available. FINDINGS/IMPRESSION: Enteric tube tip in the stomach. Electronically signed by: Chela Hernandez M.D. 06/25/24 23:18 PM
--- NOTE | 2024-06-25 23:32 | History & Physical Report ---
Date of Service June 25, 2024 Assessment & Plan (1) Septic shock: (2) Lactic acidosis: (3) Multifocal pneumonia: (4) Acute hypoxic respiratory failure: (5) Respiratory arrest: (6) Cardiac arrest: Plan 88 yo female PMHx HTN, HLD, PMR, GERD, osteoarthritis, incontinence, admitted after presenting as a code blue with EMS s/p ROSC #Septic Shock/Respiratory Arrest/Multifocal Pneumonia CXR with evidence of pneumonia, Chest CT pending Remains intubated, sedated on propofol and fentanyl Requiring pressor therapy on Levophed Vancomycin, azithromycin and cefepime initiated Stress dose steroids #Polymyalgia Rheumatica Not on chronic therapy #Other chronic conditions HTN - restart oral antihypertensives when appropriate Chronic cough - restart inhalers when appropriate FENGI: OG tube in place, nutrition consult ordered Code status: full code confirmed by DVT prophylaxis: per ICU Isolation: none Disposition: ICU Admission and Anticipated Discharge Date Admission Date: June 25, 2024 History of Present Illness Primary Care Provider: Ag Reveles, DO 88 yo female PMHx HTN, HLD, PMR, GERD, osteoarthritis, incontinence, admitted after presenting as a code blue with EMS. Chest compressions were performed. Per EMS, bradycardic to 30s prior to arrival. She received 2 of epinephrine and 1 of bicarb with ROSC. She was intubated and sedated. History is primarily obtained from . She was in her usual state of health until this evening. She finished dinner and began to have a coughing fit. Began expectorating reddish sputum and decompensated ultimately experiencing respiratory arrest. She is admitted to the ICU Allergies Allergy/AdvReac Type Severity Reaction Status Date / Time ciprofloxacin [From Cipro] Allergy Unknown Unknown Verified 06/25/24 21:48 mold Allergy Unknown Verified 06/25/24 21:48 Quinolones AdvReac Mild DIARRHEA Verified 04/23/24 14:50 Home Medications Medication Instructions Recorded Confirmed Type calcium 200 mg (as 2 tab PO DAILY 11/19/18 06/25/24 History citrate)-vitamin D3 6.25 mcg (250 unit) tablet multivitamin 1 tab PO DAILY 11/24/18 06/25/24 History vit C 250 mg-vit E 200 unit-zinc 1 tab PO BID 04/24/23 06/25/24 History 12.5 mg-copper 1 [id number]-[id number] tablet (ICaps AREDS2 (copper citrate)) cholecalciferol (vitamin D3) 25 25 mcg PO DAILY 11/12/23 06/25/24 History mcg (1,000 unit) capsule fluticasone propionate 50 2 spray intranasal DAILY PRN nasal 04/23/24 06/25/24 Rx mcg/actuation nasal congestion #16 grams spray,suspension ipratropium bromide 42 mcg (0.06 2 spray intranasal .COMPLEX #15 mL 04/23/24 06/25/24 Rx %) nasal spray estradiol 0.01% (0.1 mg/gram) 3 g vaginal 2XWK #42.5 grams 05/31/24 06/25/24 Rx vaginal cream (Estrace) codeine 10 mg-guaifenesin 100 mg/5 5 ml PO BID PRN cough #118 mL 06/08/24 06/25/24 Rx mL oral liquid guaifenesin 200 mg/5 mL oral liquid 200 mg (5 mL) PO Q4H PRN cough 06/17/24 06/25/24 Rx #473 mL fluoride (sodium) 1.1 % dental gel 1 applic dental DAILY 06/25/24 06/25/24 History gabapentin 100 mg capsule See Rx Instructions .Route .COMPLEX 06/25/24 06/25/24 History losartan 100 mg tablet 100 mg PO DAILY 06/25/24 06/25/24 History Past Med/Surg History Problem List (Updated 06/26/24 @ 15:14 by Myke Smith MD) Pulmonary hypertension Mitral regurgitation Cardiac arrest (Acute) Septic shock Lactic acidosis URI (upper respiratory infection) Multifocal pneumonia Acute hypoxic respiratory failure Respiratory arrest Chronic rhinitis Chronic cough Leg length discrepancy RLE 83.6 cm, LLE 82.6 cm Osteoarthritis of left knee Elevated hemoglobin A1c Vitamin D deficiency (Acute) Urge incontinence of urine (Acute) Stress incontinence in female (Acute) Polymyalgia rheumatica (Acute) Osteoporosis (Chronic) Lichen sclerosus et atrophicus (Acute) Gastroesophageal reflux disease (Acute) Dyslipidemia (Acute) Chronic osteoarthritis (Acute) History of arthroscopy LEFT KNEE MENISCUS SURGERY Hypertension (Chronic) Medical History Actinic keratosis Cataract Chronic neck pain Cystocele, midline Herpes zoster History of prediabetes Postherpetic neuralgia Rectocele Stricture, artery Subclinical hypothyroidism Surgical History History of bladder suspension procedure History of carpal tunnel release History of cataract surgery History of colonoscopy History of esophagogastroduodenoscopy (EGD) History of hysterectomy History of surgery History of tonsillectomy Family History Mother Congestive heart failure Diabetes Colon cancer Father Unknown Colon cancer Benign polyp of large intestine (Polyps) Brother Alzheimer disease Denies family history of Ovarian cancer Prostate cancer Myocardial infarction Breast cancer Social History Smoking Status: Never smoker Second Hand Exposure: No; Do You Dip or Chew Tobacco: No; Hx Alcohol Use: Yes Alcohol type: wine Alcohol Intake Frequency: 4 or More x per/Week Hx Substance Use: No Preferred Language: Austrian Communication Ability: Impaired Visual Impairment: No Limitations Hearing Ability: Normal Nurse Anesthetist Required: No Beliefs That Will Affect Care: None marital status: Current Living Situation: Spouse current occupational status: retired How many Children do You have: 5 Feels Safe at Home: Yes Childhood Exposure to Second-Hand Smoke: Yes Diet: regular caffeine: Yes during the past year weight has: remained stable Dental Care, Regularly: Yes Physical Activity Frequency: Daily Seatbelt Use: always Sunscreen Use: Yes Do you think of yourself as: straight/heterosexual Assistive Devices: Glasses Review of Systems Review of Systems: reviewed, per HPI Physical Exam Physical Exam: Constitutional: critically ill appearing, intubated, sedated on propofol, on pressors levophed HEENT: NCAT, no conjunctival injection CV: extremities pink, warm Resp: intubated, good chest rise GI: nondistended MSK: no gross deformities appreciated Skin: warm, dry, no rash appreciated : maldonado catheter in place Neuro: responds to basic commands, able to move all 4 extremities prior to sedation Results & Data Results & Data Vital Signs (Past 12 Hours) Vital Signs Temp Pulse Resp BP Pulse Ox O2 Del Method FiO2 06/25/24 22:39 120 H 24 87/58 L 99 Mechanical Vent 06/25/24 22:35 67/48 L 06/25/24 22:33 122 H 24 77/43 L 96 Mechanical Vent 06/25/24 22:30 77/48 L 06/25/24 22:26 71/49 L 06/25/24 22:25 122 H 22 79/48 L 94 Mechanical Vent 06/25/24 22:24 120 H 06/25/24 22:21 135 H 25 H 71/49 L 93 Mechanical Vent 06/25/24 22:19 20 100 06/25/24 22:06 133 H 22 94 Mechanical Vent 06/25/24 22:06 Mechanical Vent 06/25/24 22:06 36.8 C 132 H 22 148/97 H 94 Mechanical Vent 06/25/24 22:06 Mechanical Vent 06/25/24 22:00 135 H 24 108/67 94 Mechanical Vent 06/25/24 21:59 130 H 25 H 148/97 H Mechanical Vent 06/25/24 21:44 144 H 24 212/124 H Mechanical Vent 06/25/24 21:40 137 H 24 92 80 06/25/24 21:39 150 H 24 224/138 H Mechanical Vent 06/25/24 21:36 148 H 06/25/24 21:34 28 L 06/25/24 21:33 140 H 24 190/108 H Mechanical Vent 06/25/24 21:32 25 L Supervising Physician Co-Signing Physician Notes I personally saw and examined the patient. I independently reviewed the labs, EKG, imaging, problem list, medication list, past medical history and family history. I verified all ziegler points and agree with resident physician Dr David Carbone, DO with the following exceptions and/or additions: 88 year old female presents to the ER after coughing after dinner and coughed and had respiratory distress. On arrival to ED the patient sustained cardiac arrest and received CPR x3 minutes, epinephrine x2 before ROSC. O/E Patient intubated and sedated, HS increased rate, regular rhythm, no murmurs, Chest rhonchi b/l A/P Septic shock / multifactorial pneumonia / s/p cardiac arrest / COVID-19 - discussed steroids with ICU and will defer initiation to ICU team, broad spectrum antibiotics, Levophed started, ongoing vasopressor support per ICU team Resident Activity Tracking Resident Involvement: Resident Care Provided Care Provided: Adult Hospital Medicine
[2024-06-25 23:52] LABS: iSTAT Allen Test Pass; iSTAT Art Bld Gas pCO2 Correct 46 mmHg (35-46); iSTAT Arterial Blood Gas HCO3 21 meg/L (19-24); iSTAT Arterial Blood Gas pCO2 45 mmHg (35-46); iSTAT Arterial Blood Gas pH 7.28 (7.35-7.45); iSTAT Arterial Blood Gas pO2 68 mmHg (80-95); iSTAT Arterial Blood Gas pO2 C 71; iSTAT Carbon Dioxide 22 mmol/L (24-31); iSTAT FiO2 100 %; iSTAT Hematocrit 45 % (37-47); iSTAT Hemoglobin 15.3 g/dl (12.0-16.0); iSTAT Potassium 3.5 mmol/L (3.3-5.0); iSTAT Sample Type Arterial; iSTAT Site R Radial; iSTAT Sodium 127 mmol/L (135-144); iSTAT SpO2 95
[2024-06-25] MEDS: VANCOMYCIN HCL 1,000 MG in SODIUM CHLORIDE 0.9% 500 ML IV ONE (23:52)
[2024-06-25] MEDS: AZITHROMYCIN 500 MG/255 ML BAG IV SCH (23:52)
[2024-06-25] MEDS: CEFEPIME 2000MG 2,000 MG/20 ML SYR IV STA (23:52)
[2024-06-25] MEDS: SODIUM BICARBONATE 8.4% 150 MEQ in WATER, STERILE 1,000 ML IV SCH (23:53)
[2024-06-25] MEDS: STAT IV Infusion **Titration per Protocol STA ×4 (23:55→23:56)
[2024-06-25] MEDS: fentaNYL citrate 2,500 MCG/250 ML BAG IV SCH (23:55)
[2024-06-25] MEDS: Patient's HEIGHT &/or WEIGHT Needed STA (23:56)
[2024-06-26] MEDS: PROPOFOL BOLUS FROM BAG IV PRN (00:01)
[2024-06-26] MEDS ORDERED: CARBOHYDRATES FOR HYPOGLYCEMIA PO PRN (00:27)
[2024-06-26] MEDS ORDERED: GLUCOSE 40% GEL 15 GM TUBE PO PRN (00:27)
[2024-06-26] MEDS ORDERED: GLUCAGON FOR INJ 1 MG VIAL SQ PRN (00:27)
[2024-06-26] MEDS ORDERED: DEXTROSE 50% 50 ML SYRINGE IV PRN (00:27)
[2024-06-26] MEDS ORDERED: GLUCOSE 10 TAB/TUBE PO PRN (00:27)
[2024-06-26] MEDS: ICU Protocol for HYPERglycemia SCH (00:29)
[2024-06-26] MEDS: LACTATED RINGER'S 1,000 ML IV ONE (00:29)
[2024-06-26] MEDS: fentaNYL BOLUS from BAG IV PRN (00:32)
[2024-06-26 00:39] LABS: Base Excess VBG -7.3 mEq/L; HCO3 VBG 23 mmol/L; Oxygen Saturation VBG < 60.0 %; PCO2 VBG 67 mmHg (38-50); PO2 VBG 29 mmHg; pH VBG 7.14 (7.36-7.41)
[2024-06-26] MEDS: INSULIN ASPART PER UNIT CHARGE SC SCH ×2 (01:40→10:31)
[2024-06-26] MEDS: ALBUT/IPRATROP 3MG/0.5MG NEB 3 ML VIAL NEB SCH (01:54)
[2024-06-26] MEDS: dexAMETHasone 20 MG in DEXTROSE 5% 25 ML IV SCH (01:55)
--- NOTE | 2024-06-26 02:18 | CT Scan Report ---
Exam(s): CT CHEST Without Contrast EXAM: CT Chest Without Intravenous Contrast CLINICAL HISTORY: Reason for exam: Respiratory arrest, characterize parenchyma. TECHNIQUE: Axial computed tomography images of the chest without intravenous contrast. CTDI is 13.65 mGy and DLP is 481.58 mGy-cm. Automated exposure control was utilized for the study. A dose lowering technique was utilized adhering to the principles of ALARA. COMPARISON: No relevant prior studies available. FINDINGS: Limitations: Respiratory motion artifact. Lungs: Widespread bilateral ground-glass opacities and interstitial thickening. Additional bilateral consolidative opacities extending along the bronchovascular bundles in the mid and lower lung cummings. Pleural space: Small pleural effusions. No pneumothorax. Heart: Coronary artery atherosclerosis and mitral annular calcification. Small pericardial effusion. No cardiomegaly. Bones/joints: Skeletal evaluation limited by motion. Suggestion of recent chest compressions with probable nondisplaced buckle fractures of multiple bilateral anterior ribs. Sternal body fracture cannot be excluded in the setting of motion. No dislocation. Soft tissues: Unremarkable. Vasculature: No aortic aneurysm. Lymph nodes: Unremarkable. No adenopathy by size criteria. Tubes, lines and devices: Endotracheal tube terminates above the ebony. Enteric tube extends to the stomach. IMPRESSION: 1. Widespread bilateral ground-glass opacities and interstitial thickening. Such parenchymal lung abnormalities are frequently seen after chest compressions. Pulmonary edema is likely present. 2. Additional bilateral consolidative opacities extending along the bronchovascular bundles in the mid and lower lung cummings, suspicious for pneumonia. Imaging follow-up to resolution recommended. 3. Small pleural effusions. 4. Skeletal evaluation limited by motion. Suggestion of recent chest compressions with probable nondisplaced buckle fractures of multiple bilateral anterior ribs. Sternal body fracture cannot be excluded in the setting of motion. Communications: 06/26/24 02:14 Call Nurse MARTÍN Stinson on 06/26 02:15 (-04:00) Electronically signed by: Chela Hernandez M.D. 06/26/24 02:17 AM
[2024-06-26] MEDS ORDERED: STAT IV Infusion **Titration per Protocol STA ×5 (02:22→09:54)
[2024-06-26] MEDS: VASOPRESSIN 20 UNITS in SODIUM CHLORIDE 0.9% 100 ML IV SCH (02:35)
[2024-06-26] MEDS: ROCURONIUM BROMIDE 10 MG/ML 5 ML VIAL IV ONE (02:36)
[2024-06-26] MEDS: ROCURONIUM BROMIDE 10 MG/ML 5 ML VIAL IV STA (02:40)
[2024-06-26 02:53] LABS: Adenovirus PCR Not Detected (NotDetected); Bordetella parapertussis PCR Not Detected (NotDetected); Bordetella pertussis PCR Not Detected (NotDetected); Chlamydia pneumoniae PCR Not Detected (NotDetected); Coronavirus 229E PCR Not Detected (NotDetected); Coronavirus CoV-2 (COVID19)PCR DETECTED (NotDetected); Coronavirus HKU1 PCR Not Detected (NotDetected); Coronavirus NL63 PCR Not Detected (NotDetected); Coronavirus OC43PCR Not Detected (NotDetected); Human Metapneumovirus PCR Not Detected (NotDetected); Influenza A PCR Not Detected (NotDetected); Influenza B PCR Not Detected (NotDetected); Mycoplasma pneumoniae PCR Not Detected (NotDetected); Parainfluenza Virus 1 PCR Not Detected (NotDetected); Parainfluenza Virus 2 PCR Not Detected (NotDetected); Parainfluenza Virus 3 PCR Not Detected (NotDetected); Parainfluenza Virus 4 PCR Not Detected (NotDetected); Respiratory Syncytial VirusPCR Not Detected (NotDetected); Rhinovirus/Enterovirus PCR Not Detected (NotDetected)
--- NOTE | 2024-06-26 03:10 | Procedure Note ---
Procedure Note Date of Service June 26, 2024 ARTERIAL LINE PROCEDURE NOTE: Procedure: Arterial Line Placement Attending: Dr. Arteaga APC: Mounika Stinson PA-C Indication: Monitoring on Pressors/Frequent labs Anesthesia: Lidocaine 1% Verbal consent obtained from . Indication, risks, and benefits were explained at length. A time-out was completed verifying correct patient, procedure, site, positioning, and implant(s) or special equipment if applicable. Allens test was performed to ensure adequate perfusion. Patients R wrist was prepped and draped in the usual sterile fashion. Ultrasound guidance was used to aid needle placement. A 20g Arrow arterial line was introduced into the R radial artery. Catheter was threaded, and the needle was removed with appropriate blood return. Good waveform was observed. The patient tolerated the procedure well. Blood Loss: Minimal Complications: None Site selection rationale: Bilateral radial arteries were diminutive. Catheter is in good position. When withdrawing harshly the catheter abuts the arterial wall, but with slow withdrawal it has free flow. Complications: NONE Patient tolerated procedure: WELL Coding Additional Codes Date of Service ([email or web address])
[2024-06-26] MEDS ORDERED: STAT IV/IM STA (03:13)
--- NOTE | 2024-06-26 03:13 | Procedure Note ---
Procedure Note Date of Service June 26, 2024 INTERNAL JUGULAR CENTRAL LINE PROCEDURE NOTE: Procedure: Internal Jugular Central Line Placement Attending: Dr. Arteaga APC: Mounika Stinson PA-C Indication: Central Drug Administration, Poor Venous Access, Multiple Lab Draws Necessary, etc. Anesthesia: Lidocaine 1% Verbal consent obtained from . Indication, risks, and benefits were explained at length. A time-out was completed verifying correct patient, procedure, site, positioning, and implants(s) or special equipment if applicable. Patients R Neck was cleansed and draped in the typical sterile fashion using Chloraprep. The Internal Jugular Vein and Carotid Artery were identified using ultrasound. The superficial tissue was anesthetized using 5 mL of 1% lidocaine without epinephrine under direct visualization with the ultrasound. After adequate anesthetization was achieved, the Internal Jugular vein was cannulated under dir ect ultrasound guidance using an introducer needle on a syringe. Good venous blood return was maintained prior to removal of syringe from introducer needle. Using Seldinger Technique, a guide wire was advanced through the introducer needle without resistance. The introducer needle was removed and the guidewire was seen within the vein in multiple views. A small incision was made in penetrating fashion at the guide wire insertion site utilizing an 11 blade scalpel. The dilator was advanced to the vessel without resistance. The dilator was exchanged for the triple lumen catheter which was advanced into the vessel without resistance. The guide wire was removed intact from the catheter without issue. Claves were placed on each catheter tip with confirmation of good blood flow from each lumen. Each port was easily flushed with sterile saline. The catheter was placed at 17 cm and sutured in place. BioPatch was applied to the catheter and a sterile Tegaderm dressing was applied over the catheter with careful attention to sterility. Patient tolerated procedure well. No immediate complications were met. Post procedure x-ray was completed, placement was appropriate and no pneumothorax was noted. Artery AND Vein visualized: Y Compressible Vein: Y Guidewire or Short Catheter seen in vein prior to dilation: Y Coding Additional Codes Date of Service ([facility].SURGERY)
[2024-06-26 03:26] LABS: iSTAT Art Bld Gas pCO2 Correct 48 mmHg (35-46); iSTAT Art Bld Gas pH Corrected 7.288 (7.35-7.45); iSTAT Arterial Blood Gas HCO3 23 meg/L (19-24); iSTAT Arterial Blood Gas pCO2 48 mmHg (35-46); iSTAT Arterial Blood Gas pH 7.29 (7.35-7.45); iSTAT Arterial Blood Gas pO2 63 mmHg (80-95); iSTAT Arterial Blood Gas pO2 C 64; iSTAT Carbon Dioxide 24 mmol/L (24-31); iSTAT FiO2 60 %; iSTAT Hematocrit 40 % (37-47); iSTAT Hemoglobin 13.6 g/dl (12.0-16.0); iSTAT Potassium 3.9 mmol/L (3.3-5.0); iSTAT Sample Type Arterial; iSTAT Site Art Line; iSTAT Sodium 127 mmol/L (135-144); iSTAT SpO2 92
[2024-06-26] MEDS: CISATRACURIUM BESYLATE 40 MG in DEXTROSE 5% 80 ML IV SCH (03:50)
[2024-06-26] MEDS: ARTIFICIAL TEARS OP OINT 3.5 GM TUBE OP SCH (03:50)
--- NOTE | 2024-06-26 04:01 | XRay Report ---
EXAM: XR chest 1V portable CLINICAL HISTORY: central line insertion, vent. TECHNIQUE: An X-ray image of the chest is obtained using an AP projection. COMPARISON: 08/22/2023. FINDINGS: The endotracheal tube is seen in situ with its distal tip at least 2.8 cm above the ebony. Nasogastric tube is seen projected over the spine, reaching the diaphragm; its distal end is not covered. Right central venous catheter with distal tip in the superior vena cava. Pulmonary Parenchyma: Diffuse airspace opacification involving the right lung, more confluent in the right mid to lower zone. Is measuring also involving the left perihilar area. Prominent left perihilar bronchovascular markings. No evidence of pleural effusion or pleural thickening. Heart and Mediastinum: Heart size cannot be commented upon at this time. No mediastinal widening or masses. No hilar or mediastinal lymphadenopathy. Bony Thorax: Bony thorax appears intact without fractures or deformities. Soft Tissues: Soft tissues overlying the chest wall are unremarkable. Multiple overlying tubing artifacts are seen. IMPRESSION: 1. The endotracheal tube is seen with its distal tip at least 2.8 cm above the ebony (new). A 2 cm pulback is suggested if clinically indicated. 2. Nasogastric tube is seen projected over the spine, reaching the diaphragm; its distal end is not covered (new). 3. Right central venous catheter with distal tip in the superior vena cava (new). 4. Diffuse airspace opacification involving the right lung, more confluent in the right mid to lower zone(new). Imaging appearances are suggestive of Pulmonary edema or infective or inflammatory etiology. Clinical correlation is suggested. Electronically signed by Davy Peterson 06-26-2024 04:00 AM
[2024-06-26] MEDS: CISATRACURIUM BESYLATE IV SOLN 2 MG/ML 10 ML VIAL IV STA (04:08)
[2024-06-26] MEDS: PHENYLEPHRINE/NSS 25 MG/250 ML BAG IV SCH (04:25)
[2024-06-26] MEDS ORDERED: Nursing to Pharmacy Communication SCH (05:30)
[2024-06-26 05:33] LABS: Hematocrit (blood only) 36.5 % (37.0-47.0); Hemoglobin 12.7 g/dl (12.0-16.0); Mean Corpuscular Hemoglobin 30.1 pg (25.0-34.0); Mean Corpuscular Hgb Conc 34.8 g/dL (32.0-36.0); Mean Corpuscular Volume 86.5 fL (80.0-100.0); Mean Platelet Volume 10.4 fL (9.4-12.4); Platelet Count 300 K/uL (130-400); RDW Coefficient of Variation 13.2 % (11.5-14.5); RDW Standard Deviation 41.9 fL (36.4-46.3); Red Blood Count 4.22 M/uL (4.20-5.40); White Blood Count 18.86 K/ul (4.8-10.8)
[2024-06-26 05:43] LABS: iSTAT Art Bld Gas pCO2 Correct 49 mmHg (35-46); iSTAT Art Bld Gas pH Corrected 7.287 (7.35-7.45); iSTAT Arterial Blood Gas HCO3 23 meg/L (19-24); iSTAT Arterial Blood Gas pCO2 48 mmHg (35-46); iSTAT Arterial Blood Gas pO2 69 mmHg (80-95); iSTAT Arterial Blood Gas pO2 C 72; iSTAT Carbon Dioxide 25 mmol/L (24-31); iSTAT FiO2 60 %; iSTAT Hematocrit 40 % (37-47); iSTAT Hemoglobin 13.6 g/dl (12.0-16.0); iSTAT Potassium 4.2 mmol/L (3.3-5.0); iSTAT Sample Type Arterial; iSTAT Site Art Line; iSTAT Sodium 126 mmol/L (135-144); iSTAT SpO2 92
[2024-06-26 05:47] LABS: Basophils # (auto) 0.02 K/uL (0.00-0.20); Basophils % (auto) 0.1 %; Immature Granulocytes # (auto) 0.12 K/uL (0.01-0.20); Immature Granulocytes % (auto) 0.6 %; Lymphocytes # (auto) 0.61 K/uL (1.20-3.40); Lymphocytes % (auto) 3.2 %; Monocytes # (auto) 0.48 K/uL (0.11-0.59); Monocytes % (auto) 2.5 %; Neutrophils # (auto) 17.63 K/uL (1.40-6.50); Neutrophils % (auto) 93.6 %; Polychromasia 1+; Toxic Vacuolation 1+
[2024-06-26 06:08] LABS: BUN Creatinine Ratio 22.7 (10-20); Blood Urea Nitrogen 15 mg/dl (6-23); C Reactive Protein 4.74 mg/dl (0-0.5); Calcium 7.5 mg/dl (8.6-10.3); Carbon Dioxide 26 mmol/L (21-32); Chloride 95 mmol/L (98-107); Creatinine Clr Calc Pharmacy 46.2 ml/min; Glucose 224 mg/dl (70-99(Fasting)); Phosphorus 3.8 mg/dl (2.5-4.9); Troponin I High Sensitivity 672.9 pg/ml (0-14)
[2024-06-26 06:53] LABS: Alanine Aminotransferase 35 U/L (7-52); Albumin Level 3.1 gm/dl (3.4-5.0); Alkaline Phosphatase 55 U/L (34-104); Bilirubin,Total 0.5 mg/dl (0.2-1.0)
--- NOTE | 2024-06-26 07:17 | Hospitalist Progress Note ---
Date of Service June 26, 2024 Assessment & Plan (1) Septic shock: (2) Lactic acidosis: (3) Multifocal pneumonia: (4) Acute hypoxic respiratory failure: (5) Respiratory arrest: Plan 88 yo female PMHx HTN, HLD, PMR, GERD, osteoarthritis, incontinence, admitted after presenting as a code blue with EMS s/p ROSC #Septic Shock/Respiratory Arrest/Multifocal Pneumonia - CXR with evidence of pneumonia/pulmonary edema/inflammation - Chest CT shoows bilateral opacities, suggestive of pulmonary edema - Remains intubated, sedated on propofol and fentanyl - Requiring pressor therapy on Levophed - Vancomycin, azithromycin and cefepime initiated - Stress dose steroids - biofire panel negative, except for SARS-CoV-2 detected - Currently managed by ICU. Goals of care discussion discussed with ICU attending and patient's family. CODE STATUS changed to DNR/DNI. - Patient will be taken to the [facility] today where a Grethel will be placed. Further workup per ICU management. - High likelihood of patient demise during this admission. #Polymyalgia Rheumatica Not on chronic therapy #Other chronic conditions HTN - restart oral antihypertensives when appropriate Chronic cough - restart inhalers when appropriate FENGI: OG tube in place, nutrition consult ordered DVT prophylaxis: Enoxaparin Disposition: ICU Admission and Anticipated Discharge Date Admission Date: June 25, 2024 Supervising Physician Co-Signing Physician Notes Attending attestation Pt seen and examined in concert with Dr. Johnston. In agreement with the documented findings as noted in the resident documentation with any exceptions or additions as noted here. Patient sedated on vent at time of examination. Son and daughter in law at bedside, updated re: current course of care. On examination, S1/S2 nl RRR. scattered rales and rhonchi. Ventilator dependent acute hypoxic respiratory failure in the setting of multifocal PNA w/ septic shock - IV abx therapy and steroid support with pressor therapy as noted. Ventilation and sedation ongoing. Cardiac arrest s/p ROSC - goals of care updated by spouse in AM per nursing, updated son and [id number] at bedside re: course, prognosis and code status Else see resident documentation as noted. Subjective Patient seen bedside this morning. Mechanical event. No significant subjective history. Review of Systems Review of Systems: Unobtainable due to endotracheal tube Physical Exam Physical Exam: Constitutional: critically ill appearing, intubated, sedated on propofol, on pressors levophed HEENT: NCAT, no conjunctival injection CV: extremities pink, warm Resp: intubated, rhonchi or rales throughout GI: nondistended MSK: no gross deformities appreciated Skin: warm, dry, no rash appreciated : maldonado catheter in place Neuro: responds to basic commands, able to move all 4 extremities prior to sedation Results & Data Results & Data Vital Signs (Past 12 Hours) Vital Signs Temp Pulse Resp BP Pulse Ox O2 Del Method FiO2 06/26/24 05:30 37.7 C H 54 L 26 H 92 06/26/24 05:15 37.7 C H 56 L 26 H 92 06/26/24 05:11 Mechanical Vent 06/26/24 05:09 37.7 C H 55 L 26 H 92 06/26/24 05:00 121/57 L 06/26/24 05:00 121/57 L 06/26/24 04:54 37.7 C H 56 L 26 H 92 06/26/24 04:45 37.7 C H 57 L 26 H 92 06/26/24 04:33 37.6 C H 61 26 H 91 06/26/24 04:15 37.4 C 62 26 H 91 06/26/24 04:10 90/52 L 06/26/24 04:10 90/52 L 06/26/24 04:10 90/52 L 06/26/24 04:03 36.6 C 63 26 H 90 06/26/24 04:00 37.5 C 63 26 H 90 06/26/24 03:45 37.4 C 64 26 H 92 06/26/24 03:18 37.5 C 68 26 H 92 06/26/24 03:03 37.4 C 73 26 H 91 06/26/24 02:43 79 28 H 96 60 06/26/24 02:39 36.5 C 80 26 H 98 06/26/24 02:18 37.4 C 73 23 96 06/26/24 02:03 37.4 C 75 24 98 06/26/24 02:00 75/45 L 06/26/24 02:00 75/45 L 06/26/24 01:48 37.3 C 78 20 97 06/26/24 01:45 70/40 L 06/26/24 01:45 70/40 L 04/18/25 01:39 37.4 C 79 19 94 06/26/24 01:36 37.4 C 80 19 96 06/26/24 01:32 89/46 L 06/26/24 01:32 89/46 L 06/26/24 01:30 72/41 L 06/26/24 01:30 72/41 L 06/26/24 01:30 37.4 C 80 19 95 06/26/24 01:15 90/46 L 06/26/24 01:15 90/46 L 06/26/24 01:12 37.2 C 93 H 20 84 L 06/26/24 01:00 112/67 06/26/24 00:51 37.6 C H 90 26 H 97 06/26/24 00:36 37.8 C H 88 23 96 06/26/24 00:30 105/54 L 06/26/24 00:21 37.9 C H 101 H 26 H 97 06/26/24 00:01 108/54 L 06/26/24 00:01 108/54 L 06/26/24 00:01 108/54 L 06/26/24 00:01 108/54 L 06/26/24 00:00 37.9 C H 105 H 36 H 95 06/25/24 23:44 65 06/25/24 23:36 37.1 C 115 H 38 H 94 06/25/24 23:32 Mechanical Vent 06/25/24 23:30 100/54 L 06/25/24 23:30 100/54 L 06/25/24 23:30 100/54 L 06/25/24 23:27 37.6 C H 110 H 33 H 95 06/25/24 23:21 37.6 C H 116 H 37 H 91 06/25/24 23:20 141/65 H 06/25/24 23:20 141/65 H 06/25/24 23:20 141/65 H 06/25/24 22:57 122 H 0 L 95 06/25/24 22:55 123/64 06/25/24 22:55 123/64 06/25/24 22:51 123 H 0 L 96 06/25/24 22:50 101/64 06/25/24 22:50 101/64 06/25/24 22:50 101/64 04/17/25 22:48 127 H 0 L 98 06/25/24 22:45 92/42 L 06/25/24 22:42 123 H 0 L 98 06/25/24 22:40 87/58 L 06/25/24 22:40 87/58 L 06/25/24 22:39 120 H 24 87/58 L 99 Mechanical Vent 06/25/24 22:35 67/48 L 06/25/24 22:33 122 H 24 77/43 L 96 Mechanical Vent 06/25/24 22:30 77/48 L 06/25/24 22:26 71/49 L 06/25/24 22:25 122 H 22 79/48 L 94 Mechanical Vent 06/25/24 22:24 120 H 06/25/24 22:21 135 H 25 H 71/49 L 93 Mechanical Vent 06/25/24 22:19 20 100 06/25/24 22:06 133 H 22 94 Mechanical Vent 06/25/24 22:06 Mechanical Vent 06/25/24 22:06 36.8 C 132 H 22 148/97 H 94 Mechanical Vent 06/25/24 22:06 Mechanical Vent 06/25/24 22:00 135 H 24 108/67 94 Mechanical Vent 06/25/24 21:59 130 H 25 H 148/97 H Mechanical Vent 06/25/24 21:44 144 H 24 212/124 H Mechanical Vent 06/25/24 21:40 137 H 24 92 80 06/25/24 21:39 150 H 24 224/138 H Mechanical Vent 06/25/24 21:36 148 H 06/25/24 21:34 28 L 06/25/24 21:33 140 H 24 190/108 H Mechanical Vent 06/25/24 21:32 25 L
[2024-06-26] MEDS ORDERED: ICU Protocol for HYPERglycemia SCH (07:30)
[2024-06-26 07:49] LABS: Bilirubin Direct 0.1 mg/dl (0-0.2); Magnesium 1.7 mg/dl (1.7-2.4); Potassium 4.1 mmol/L (3.5-5.1)
[2024-06-26] MEDS ORDERED: VANCOMYCIN HCL 1,000 MG/270 ML BAG IV SCH (08:00)
--- NOTE | 2024-06-26 08:48 | XRay Report ---
EXAM: XR chest 1V portable CLINICAL HISTORY: Chest pain, nonspecific TECHNIQUE: X-ray image of the chest obtained in 1 frontal projection. COMPARISON: CR 08/22/2023. FINDINGS: ETT with tip 4.7 cm above ebony. Nasogastric tube in situ. Pulmonary Parenchyma: Hyperinflated bilateral lungs showing prominent bronchovascular markings and multifocal areas of air space opacities, right more than left. Atelectatic band in left mid zone. No evidence of pleural effusion or pleural thickening. Heart and Mediastinum: Mild cardiomegaly. Aortic knuckle calcifications. No mediastinal widening or masses. No hilar or mediastinal lymphadenopathy. Bony Thorax: Spondylotic changes in thoracic spine. Bony thorax appears intact without fractures or deformities. Soft Tissues: Soft tissues overlying the chest wall are unremarkable. IMPRESSION: 1. ETT with tip 4.7 cm above ebony. 2. Nasogastric tube in situ. 3. Hyperinflated bilateral lungs showing prominent bronchovascular markings and multifocal areas of air space opacities, right more than left - new finding. 4. Atelectatic band in left mid zone, stable. Electronically signed by Davy Peterson 06-26-2024 08:47 AM
[2024-06-26] MEDS: CEFEPIME 2000MG 2,000 MG/20 ML SYR IV SCH (09:06)
--- NOTE | 2024-06-26 09:41 | Critical Care Progress Note ---
Date of Service June 26, 2024 Assessment & Plan (1) Respiratory arrest: (2) Acute hypoxic respiratory failure: (3) Multifocal pneumonia: (4) URI (upper respiratory infection): (5) Lactic acidosis: (6) Septic shock: Plan Reason Critically Ill: 1. Distributive shock, as result of vasoplegia +/- sepsis 2. Multifocal pneumonia, post-URI COVID 3. Lactic acidosis 4. Acute hypoxic respiratory failure 2/2 #2 5. ARDS 2/2 #2 6. Respiratory arrest 7. Hypercapnia 2/2 #6, resolved 8. Hyperglycemia without history of DM 9. NSTEMI, type II Neuro - BIS moniteoring while under neuromuscular blockade - continue for 24 hours fentanyl gtt - Start Versed and discontinue propofol given negative inotropic effects as patient is on 3 pressors APAP PRN fever Daily ETOH: Will require consideration of CIWA monitoring; however, anticipate extended. Facilitation mechanical ventilation monitor off CIWA Cardiac - Continue norepinephrine for MAP goal > 65mmHg - Most consistent with type II ischemia; however, will empirically heparinize: No specific contraindication to systemic anticoagulation Awaiting formal echo Respiratory - Mechanically ventilated Not a current candidate for SAT/SBT SpO2 goal > 92% Pulmonary hygiene DuoNebs, PF ratio 115: Meets criteria for severe ARDSnet however I feel this is most likely a component of flash pulmonary edema compounded with COVID and possible aspiration pneumonitis - At this point patient has had considerable improvement in oxygen requirement: Utilize high PEEP low FiO2 tables - Agree with discontinuing vancomycin, no high risk features for healthcare associated pneumonia if this is aspiration this would be aspiration pneumonitis not withstanding community-acquired pathogens would be most likely will de-escalate to Rocephin and Zithromax Repeat ABG in AM Sputum culture GI - Diet: NPO except meds via OGT, - Hold enteral nutrition secondary to 3 vasoactive medications SUP: H2B Bowel regimen: Miralax RENAL/LYTES - Replete electrolytes as indicated Mccoy for accurate I/Os - No additional fluid receiving significant diluent's with multiple medication infusions Maintain net even to net negative - Discussed with anticipate renal function getting worse, if patient were to require renal replacement therapy especially given her current medical issues I doubt she would be able to tolerate renal replacement therapy ENDO - BG 140-180 per [facility] guidelines Initiate insulin infusion COVID steroid protocol. Higher ards dosing likely to have increase adverse effects vs lower covid dosing, especially given improvements in oxygenation. HEME - Systemic anticoagulation with heparin no bolus ID - Rocephin and Zithromax BC x2 pending (drawn in ICU AFTER antibiotics given), UA pending, MRSA pending, procalcitonin pending, sputum culture pending, BioFire pending LINES/TUBES/DRAINS - PIV x2 Mccoy (Day #1) ETT (Day #1) OGT (Day #1) Patient's has consented for CVC if needed DVT PROPHYLAXIS - Heparin infusion DISPOSITION - ICU CODE STATUS - DNR in event of subsequent arrest - Discussed with current prognosis, patient has significant high risk features related to cardiac arrest being advanced age and respiratory arrest leading to cardiac arrest. Emphasized under all cardiac arrest survivors survivability rate averages between 10 to 20% and of those 90% have neurologic injury. Also discussed heavy sedative use predisposes elderly patients to significant neurologic issues related to recovery and/or return of function. Also discussed neuromuscular blockade being a risk factor for significant ICU myopathy and prolonged significant critical illness and extensive rehabilitation requirements. Patient had advanced directive and prior discussions with family. I emphasized focusing on what patient would find a acceptable quality of life as we obtain more data in the following hours and possibly days. Emphasized will provide patient with the resources to heal; however, the patient's body has to do the heavy lifting of repair. I am very concerned of a poor functional outcome that may preclude return to significant independent living. Admission and Anticipated Discharge Date Admission Date: June 25, 2024 Supervising Physician Co-Signing Physician Notes I have personally spent 85 minutes of critical care time in the direct management of this patient. This is a life/limb threatening event. This includes time spent evaluating patient, direct bedside care, chart review, placing orders, interpretation of diagnostic studies, discussion with consultants, patient, and/or family members regarding treatment decisions, as well as other required patient management activities. This time is exclusive of all separately billable procedures, and teaching time and separate from and in addition to any other critical care service time. Results & Data Results & Data Vital Signs (Past 12 Hours) Vital Signs Temp Pulse Resp BP Pulse Ox O2 Del Method FiO2 06/26/24 08:03 30 H 94 Mechanical Vent 50 06/26/24 07:50 58 L 30 H 95 50 06/26/24 07:26 50 L 125/56 L 06/26/24 07:24 51 L 06/26/24 05:30 37.7 C H 54 L 26 H 92 06/26/24 05:15 37.7 C H 56 L 26 H 92 06/26/24 05:11 Mechanical Vent 06/26/24 05:09 37.7 C H 55 L 26 H 92 06/26/24 05:00 121/57 L 06/26/24 05:00 121/57 L 06/26/24 04:54 37.7 C H 56 L 26 H 92 06/26/24 04:45 37.7 C H 57 L 26 H 92 06/26/24 04:33 37.6 C H 61 26 H 91 06/26/24 04:15 37.4 C 62 26 H 91 06/26/24 04:10 90/52 L 06/26/24 04:10 90/52 L 06/26/24 04:10 90/52 L 06/26/24 04:03 36.6 C 63 26 H 90 06/26/24 04:00 37.5 C 63 26 H 90 06/26/24 03:45 37.4 C 64 26 H 92 06/26/24 03:18 37.5 C 68 26 H 92 06/26/24 03:03 37.4 C 73 26 H 91 06/26/24 02:43 79 28 H 96 60 06/26/24 02:39 36.5 C 80 26 H 98 06/26/24 02:18 37.4 C 73 23 96 06/26/24 02:03 37.4 C 75 24 98 06/26/24 02:00 75/45 L 06/26/24 02:00 75/45 L 06/26/24 01:48 37.3 C 78 20 97 06/26/24 01:45 70/40 L 06/26/24 01:45 70/40 L 06/26/24 01:39 37.4 C 79 19 94 06/26/24 01:36 37.4 C 80 19 96 06/26/24 01:32 89/46 L 06/26/24 01:32 89/46 L 06/26/24 01:30 72/41 L 06/26/24 01:30 72/41 L 06/26/24 01:30 37.4 C 80 19 95 06/26/24 01:15 90/46 L 06/26/24 01:15 90/46 L 06/26/24 01:12 37.2 C 93 H 20 84 L 06/26/24 01:00 112/67 06/26/24 00:51 37.6 C H 90 26 H 97 06/26/24 00:36 37.8 C H 88 23 96 06/26/24 00:30 105/54 L 06/26/24 00:21 37.9 C H 101 H 26 H 97 06/26/24 00:01 108/54 L 06/26/24 00:01 108/54 L 06/26/24 00:01 108/54 L 06/26/24 00:01 108/54 L 06/26/24 00:00 37.9 C H 105 H 36 H 95 06/25/24 23:44 65 06/25/24 23:36 37.1 C 115 H 38 H 94 06/25/24 23:32 Mechanical Vent 06/25/24 23:30 100/54 L 06/25/24 23:30 100/54 L 06/25/24 23:30 100/54 L 06/25/24 23:27 37.6 C H 110 H 33 H 95 06/25/24 23:21 37.6 C H 116 H 37 H 91 06/25/24 23:20 141/65 H 06/25/24 23:20 141/65 H 06/25/24 23:20 141/65 H 06/25/24 22:57 122 H 0 L 95 06/25/24 22:55 123/64 06/25/24 22:55 123/64 06/25/24 22:51 123 H 0 L 96 06/25/24 22:50 101/64 06/25/24 22:50 101/64 06/25/24 22:50 101/64 06/25/24 22:48 127 H 0 L 98 06/25/24 22:45 92/42 L 06/25/24 22:42 123 H 0 L 98 06/25/24 22:40 87/58 L 06/25/24 22:40 87/58 L 06/25/24 22:39 120 H 24 87/58 L 99 Mechanical Vent 06/25/24 22:35 67/48 L 06/25/24 22:33 122 H 24 77/43 L 96 Mechanical Vent 06/25/24 22:30 77/48 L 06/25/24 22:26 71/49 L 06/25/24 22:25 122 H 22 79/48 L 94 Mechanical Vent 06/25/24 22:24 120 H 06/25/24 22:21 135 H 25 H 71/49 L 93 Mechanical Vent 06/25/24 22:19 20 100 06/25/24 22:06 133 H 22 94 Mechanical Vent 06/25/24 22:06 Mechanical Vent 06/25/24 22:06 36.8 C 132 H 22 148/97 H 94 Mechanical Vent 06/25/24 22:06 Mechanical Vent 06/25/24 22:00 135 H 24 108/67 94 Mechanical Vent 06/25/24 21:59 130 H 25 H 148/97 H Mechanical Vent 06/25/24 21:44 144 H 24 212/124 H Mechanical Vent 06/25/24 21:40 137 H 24 92 80 06/25/24 21:39 150 H 24 224/138 H Mechanical Vent 06/25/24 21:36 148 H 06/25/24 21:34 28 L 06/25/24 21:33 140 H 24 190/108 H Mechanical Vent Coding Level of Care Code 42848 CRITICAL CARE 1ST 30-74M Additional Critical Care Time Additional 30min Critical Care Time: Yes - 60229 Diagnoses Respiratory arrest R09.2 Acute hypoxic respiratory failure J96.01 Multifocal pneumonia J18.9 URI (upper respiratory infection) J06.9 Lactic acidosis E87.20 Septic shock A41.9; R65.21 Additional Codes Critical Care Time - Additional 30min Critical Care Time: Yes - 99407 ([id number])
[2024-06-26] MEDS ORDERED: ALBUT/IPRATROP 3MG/0.5MG NEB 3 ML VIAL NEB PRN (09:42)
[2024-06-26] MEDS: THIAMINE HCL 100 MG in SYRINGE 9 ML IV SCH (10:28)
[2024-06-26] MEDS: INSULIN REGULAR 250 UNITS in SODIUM CHLORIDE 0.9% 247.5 ML IV SCH (10:28)
[2024-06-26] MEDS: MIDAZOLAM HCL 125 MG/250 ML BAG IV SCH (10:30)
[2024-06-26] MEDS: HEPARIN 25000 UNIT/500 ML D5W 25,000 UNITS/500 ML BAG IV SCH (10:35)
[2024-06-26] MEDS: POLYETHYLENE (MIRALAX) 17 GM PACK PO SCH (10:35)
[2024-06-26] MEDS: FAMOTIDINE SUSP 40 MG/5 ML UDP GT SCH (10:35)
[2024-06-26] MEDS: Heparin IV Adult Wt-Based Standard *NO* INITIAL Bolus Protocol IV SCH (10:36)
[2024-06-26] MEDS: SEVERE STRESS LEVEL ONE (10:37)
[2024-06-26] MEDS: INSULIN PROTOCOL GOAL RANGE ONE (11:18)
--- NOTE | 2024-06-26 12:11 | XCELERA ---
[id number]
--- NOTE | 2024-06-26 12:22 | Electrocardiogram Report ---
Test Reason : Blood Pressure : */* mmHG Vent. Rate : 152 BPM Atrial Rate : * BPM P-R Int : * ms QRS Dur : 102 ms QT Int : 328 ms P-R-T Axes : * 86 62 degrees QTcB Int : 521 ms Sinus tachycardia with PACs Marked ST abnormality, possible anterior subendocardial injury Abnormal ECG Confirmed by Myke Smith ([id number]) on 06/26/2024 12:21:55 PM Referred By: REFERRED SELF Confirmed By: Myke Smith
[2024-06-26 14:14] LABS: iSTAT Arterial Blood Gas HCO3 25 meg/L (19-24); iSTAT Arterial Blood Gas pCO2 61 mmHg (35-46); iSTAT Arterial Blood Gas pH 7.21 (7.35-7.45); iSTAT Arterial Blood Gas pO2 35 mmHg (80-95); iSTAT Carbon Dioxide 27 mmol/L (24-31); iSTAT Hematocrit 40 % (37-47); iSTAT Hemoglobin 13.6 g/dl (12.0-16.0); iSTAT Potassium 4.1 mmol/L (3.3-5.0); iSTAT Sodium 126 mmol/L (135-144)
--- NOTE | 2024-06-26 14:24 | Cardiac Catheterization ---
[facility] Data: Garage Hand Cardiac Status Clinical evaluation leading to the procedure CAD Presenation: Sx unlikely to be ischemic Diagnostic Physicians Name: Myke Smith MD Closure Device Recommendations: None Cardiac Cath Procedure Full Procedure Date June 26, 2024 Pre-Procedure Diagnosis Pre-Procedure Diagnosis: Valvular Disease AUC Score AUC Score: 8 Post-Procedure Diagnosis Post-Procedure Diagnosis: Elevated Intracardiac Pressures Procedure(s) Performed Procedure(s) Performed: Right Heart Cath Enamel Finisher Myke Smith MD Estimated Blood Loss Estimated Blood Loss: 3cc Medication(s) Medication(s): Lidocaine 1% Summary of Findings Procedure form: Right heart catheterization Staff waste elimination: Myke Smith MD Indication: Hypoxic respiratory failure with known severe mitral regurgitation Procedure detail: Patient was brought to the cardiac catheterization laboratory intubated, sedated and paralyzed. Procedure was performed emergently with verbal consent from available family members. The right femoral area was prepped and draped in usual sterile fashion. This area was anesthetized using subcutaneous ministration of a lidocaine solution. The right femoral vein was subsequently accessed using modified Seldinger technique and a venous sheath was placed over guidewire at this site. This sheath was used to facilitate passage of a balloon-tipped PA catheter to the pulmonary artery under fluoroscopic guidance. Pressure measurements and hemodynamics were obtained. The catheter was left in the pulmonary artery. The access site was secured using suture and a sterile dressing. Findings: Thermodilution cardiac output 3 L/min with an index of 1.9 suggesting (low) Severe mitral regurgitation Severely elevated pulmonary arterial pressure Mildly elevated pulmonary capillary wedge pressure/left-sided filling pressure Hemodynamics Rest Ao:: n/a Final Ao: n/a LV: n/a RV: 58/2 mmHg PA: 58/20 mmHg PW: 18 mmHg Recommendations Recommendations: None Radiation Exposure (mGy) 401 Contrast (mls) 0 Procedural Complication(s) None Disposition ICU I attest to the content of the Intraoperative Record and any orders documented therein. Any exceptions are noted below. [facility] Card Cath Procedure Codes Cardiac Catheterization Procedure 1: Cardiovascular Cath Procedures: 17459 Right Heart Cath PG Care Time/CCT Total # of Minutes Spent Total Time Spent with Patient: Total time spent is greater than 50% in coordination of care (as documented) at patient's floor/unit and/or counseling patient:
--- NOTE | 2024-06-26 14:30 | Electrocardiogram Report ---
Test Reason : Blood Pressure : */* mmHG Vent. Rate : 53 BPM Atrial Rate : 53 BPM P-R Int : 200 ms QRS Dur : 92 ms QT Int : 464 ms P-R-T Axes : 82 74 54 degrees QTcB Int : 435 ms Sinus bradycardia with occasional Premature ventricular complexes Otherwise normal ECG When compared with ECG of 25-Jun-2024 21:38, Sinus rhythm has replaced Atrial fibrillation Vent. rate has decreased by 99 bpm Confirmed by Myke Smith ([id number]) on 06/26/2024 2:30:21 PM Referred By: REFERRED SELF Confirmed By: Myke Smith
--- NOTE | 2024-06-26 15:10 | Cardiology Consultation ---
Date of Consultation June 26, 2024 Assessment & Plan (1) Cardiac arrest: (2) Mitral regurgitation: (3) Pulmonary hypertension: Plan 1. Cardiac arrest: This appears to be related to acute hypoxemia. She appears to have had a respiratory event that was somewhat acute. Current diagnoses be entertained includes multifocal pneumonia, COVID pneumonia, pulmonary edema or possibly aspiration. She is requiring significant pressor support. She required supplemental oxygen with endotracheal intubation. No notable arrhythmia or need for defibrillation. 2. Mitral regurgitation: Likely severe. Very eccentric and related to a prolapsed posterior segment. Likely longstanding in nature. Hemodynamics at the time of catheterization do not suggest an acute process. There are some left atrial dilation suggesting this is more chronic in nature. I do not think there is an urgent indication for intervention nor do I think she would be a good candidate for intervention at this point. 3. Pulmonary edema: She may have an element of pulmonary vascular congestion. Pulmonary wedge pressure was slightly elevated, but this is in the setting of severe mitral regurgitation and mechanical ventilation. Cautious diuresis. 4. Pulmonary hypertension: Combination of her acute illness and chronic mitral regurgitation. History of Present Illness Reason for Consultation: Hypoxic respiratory arrest, abnormal echocardiogram Requesting Physician: Chandler Attending Physician: Myke Orosco MD History of Present Illness The patient is an 88-year-old woman without a known history of cardiac disease who was brought to the hospital in respiratory arrest yesterday evening. The patient is intubated and sedated and history obtained primarily from the chart, family members and hospital staff. It seems that she was in her usual state of health when she had an acute episode yesterday shortly after dinner. This involved coughing and the development of some dyspnea. This progressed quite rapidly to respiratory failure and en route the patient was noted to be hypoxic, lethargic and bradycardic. She required a brief period of resuscitation in the emergency room prior to being intubated and placed on hemodynamic support. Her evaluation today included an echocardiogram which suggested an abnormality in the mitral valve. There was some concern that her decompensation could have resulted from an acute issue with the mitral valve. Currently on 3 vasopressors and mechanical ventilation. Allergies Allergy/AdvReac Type Severity Reaction Status Date / Time ciprofloxacin [From Cipro] Allergy Unknown Unknown Verified 06/25/24 21:48 mold Allergy Unknown Verified 06/25/24 21:48 Quinolones AdvReac Mild DIARRHEA Verified 04/23/24 14:50 Home Medications Medication Instructions Recorded Confirmed Type calcium 200 mg (as 2 tab PO DAILY 11/19/18 06/25/24 History citrate)-vitamin D3 6.25 mcg (250 unit) tablet multivitamin 1 tab PO DAILY 11/24/18 06/25/24 History vit C 250 mg-vit E 200 unit-zinc 1 tab PO BID 04/24/23 06/25/24 History 12.5 mg-copper 1 [id number] tablet (ICaps AREDS2 (copper citrate)) cholecalciferol (vitamin D3) 25 25 mcg PO DAILY 11/12/23 06/25/24 History mcg (1,000 unit) capsule fluticasone propionate 50 2 spray intranasal DAILY PRN nasal 04/23/24 06/25/24 Rx mcg/actuation nasal congestion #16 grams spray,suspension ipratropium bromide 42 mcg (0.06 2 spray intranasal .COMPLEX #15 mL 04/23/24 06/25/24 Rx %) nasal spray estradiol 0.01% (0.1 mg/gram) 3 g vaginal 2XWK #42.5 grams 05/31/24 06/25/24 Rx vaginal cream (Estrace) codeine 10 mg-guaifenesin 100 mg/5 5 ml PO BID PRN cough #118 mL 06/08/24 06/25/24 Rx mL oral liquid guaifenesin 200 mg/5 mL oral liquid 200 mg (5 mL) PO Q4H PRN cough 06/17/24 06/25/24 Rx #473 mL fluoride (sodium) 1.1 % dental gel 1 applic dental DAILY 06/25/24 06/25/24 Hist ory gabapentin 100 mg capsule See Rx Instructions .Route .COMPLEX 06/25/24 06/25/24 History losartan 100 mg tablet 100 mg PO DAILY 06/25/24 06/25/24 History Patient History Medical History Actinic keratosis Cataract Chronic neck pain Cystocele, midline Herpes zoster History of prediabetes Postherpetic neuralgia Rectocele Stricture, artery Subclinical hypothyroidism Surgical History History of bladder suspension procedure History of carpal tunnel release History of cataract surgery History of colonoscopy History of esophagogastroduodenoscopy (EGD) History of hysterectomy History of surgery History of tonsillectomy Family History Mother Congestive heart failure Diabetes Colon cancer Father Unknown Colon cancer Benign polyp of large intestine (Polyps) Brother Alzheimer disease Denies family history of Ovarian cancer Prostate cancer Myocardial infarction Breast cancer Social History Smoking Status: Never smoker Second Hand Exposure: No; Do You Dip or Chew Tobacco: No; Hx Alcohol Use: Yes Alcohol type: wine Alcohol Intake Frequency: 4 or More x per/Week Hx Substance Use: No Preferred Language: Moroccan Communication Ability: Impaired Visual Impairment: No Limitations Hearing Ability: Normal Jira Developer Required: No Beliefs That Will Affect Care: None marital status: Current Living Situation: Spouse current occupational status: retired How many Children do You have: 5 Other Information That Helps Us Care for You: No Feels Safe at Home: Yes Safety Concerns: Feels Safe At This Time Childhood Exposure to Second-Hand Smoke: Yes Diet: regular caffeine: Yes during the past year weight has: remained stable Dental Care, Regularly: Yes Physical Activity Frequency: Daily Seatbelt Use: always Sunscreen Use: Yes Do you think of yourself as: straight/heterosexual Assistive Devices: Glasses Review of Systems Review of Systems: Unobtainable due to endotracheal tube Physical Exam Physical Exam: Intubated, sedated and paralyzed. HEENT: Sclerae are anicteric. Neck: Central line in place. Lungs: Bronchial breath sounds with reduced breath sounds on the right. Cardiac: The rhythm was regular. Holosystolic murmur. Abdomen: The abdomen was soft and nontender. Extremities: Patient has bilateral radial pulses that are equal in intensity. There is no evidence cyanosis or clubbing. Minimal peripheral edema. Skin: There are no rashes noted on examination today. Results & Data Vital Signs (Past 12 Hours) Vital Signs Temp Pulse Resp BP Pulse Ox O2 Del Method FiO2 06/26/24 12:30 37.7 C H 57 L 32 H 96 06/26/24 12:06 37.6 C H 53 L 28 H 96 06/26/24 12:00 50 06/26/24 12:00 136/65 06/26/24 11:57 37.5 C 58 L 28 H 96 06/26/24 11:33 37.7 C H 53 L 26 H 96 06/26/24 11:09 37.7 C H 69 30 H 96 06/26/24 10:30 37.7 C H 52 L 26 H 95 06/26/24 10:06 37.7 C H 53 L 26 H 95 06/26/24 09:33 37.7 C H 56 L 26 H 94 06/26/24 09:00 149/63 H 06/26/24 08:57 37.7 C H 55 L 26 H 94 06/26/24 08:49 50 06/26/24 08:33 37.8 C H 55 L 26 H 94 06/26/24 08:03 30 H 94 Mechanical Vent 50 06/26/24 08:00 37.7 C H 51 L 26 H 94 06/26/24 08:00 140/61 06/26/24 08:00 Mechanical Vent 50 06/26/24 07:50 58 L 30 H 95 50 06/26/24 07:33 37.8 C H 51 L 26 H 95 06/26/24 07:30 Mechanical Vent 06/26/24 07:26 50 L 125/56 L 06/26/24 07:24 51 L 06/26/24 07:03 37.7 C H 52 L 26 H 94 06/26/24 07:00 128/60 06/26/24 06:57 37.7 C H 51 L 26 H 94 06/26/24 06:30 37.7 C H 52 L 26 H 94 06/26/24 06:00 37.7 C H 52 L 26 H 93 06/26/24 06:00 122/59 L 06/26/24 05:30 37.7 C H 54 L 26 H 92 06/26/24 05:15 37.7 C H 56 L 26 H 92 06/26/24 05:11 Mechanical Vent 06/26/24 05:09 37.7 C H 55 L 26 H 92 06/26/24 05:00 121/57 L 06/26/24 05:00 121/57 L 06/26/24 04:54 37.7 C H 56 L 26 H 92 06/26/24 04:45 37.7 C H 57 L 26 H 92 06/26/24 04:33 37.6 C H 61 26 H 91 06/26/24 04:15 37.4 C 62 26 H 91 06/26/24 04:10 90/52 L 06/26/24 04:10 90/52 L 06/26/24 04:10 90/52 L 06/26/24 04:03 36.6 C 63 26 H 90 06/26/24 04:00 37.5 C 63 26 H 90 06/26/24 03:45 37.4 C 64 26 H 92 06/26/24 03:18 37.5 C 68 26 H 92 Laboratory Results Abnormal Lab Results 06/25/24 06/25/24 06/25/24 21:41 21:46 23:31 WBC 15.35 H RBC 4.45 Hgb 13.3 POC Hgb 15.3 Hct 41.4 POC Hct 45 MCV 93.0 MCH 29.9 MCHC 32.1 RDW Std Deviation 45.0 RDW Coeff of Jenny 13.3 Plt Count 270 MPV 10.2 Immature Gran % (Auto) 1.2 Neut % (Auto) 56.4 Lymph % (Auto) 37.7 [place] % (Auto) 3.8 Eos % (Auto) 0.3 Baso % (Auto) 0.6 Neut # (Auto) 8.65 H Lymph # (Auto) 5.79 H [place] # (Auto) 0.59 Eos # (Auto) 0.05 Baso # (Auto) 0.09 Immature Gran # (Auto) 0.18 Absolute Nucleated RBC 0.04 Nucleated RBC % (auto) 0.3 Toxic Vacuolation Polychromasia Specimen Type Arterial Sample Site R Radial POC pH 7.28 L POC pCO2 45 POC pO2 68 L POC HCO3 21 POC Total CO2 22 L POC Base Excess -6.0 O2 Sat Pulse Oximetry 95 ABG pH (Temp Correct) 7.270 L ABG pCO2 (Temp Corrct 46 POC ABG pO2 at Pt Temp 71 POC ABG O2 Sat 91.0 Surya Test Pass VBG pH < 7.00 L VBG pCO2 84 H VBG pO2 37 VBG HCO3 TNP VBG O2 Saturation < 60.0 VBG Base Excess TNP O2 Delivery Device Ventilator Vent Mode AC POC FiO2 100 End Tidal CO2 18 POC Sodium 127 L Sodium 128 L POC Potassium 3.5 Potassium 3.7 Chloride 95 L Carbon Dioxide 18 L Anion Gap 15 H BUN 8 Creatinine 0.58 L Est Cr Clr Drug Dosing Not Reportable eGFR 88.08 BUN/Creatinine Ratio 13.8 Glucose 291 H POC Glucose POC Glucose (other) Lactate 9.5 H* Calcium 8.3 L Phosphorus Magnesium Total Bilirubin 0.5 Direct Bilirubin AST 32 ALT 18 Alkaline Phosphatase 73 Troponin I High Sens 231.9 H* C-Reactive Protein Total Protein 6.5 Albumin 3.3 L Globulin 3.2 Albumin/Globulin Ratio 1.0 Lipase 9 L Procalcitonin < 0.02 Random Cortisol Nasal Screen MRSA (PCR) Adenovirus (PCR) B. pertussis DNA (PCR) B.parapertussis DNA PCR C. pneumoniae DNA (PCR) Coronavirus OC43 (PCR) Coronavirus HKU1 (PCR) Coronavirus 229E (PCR) SARS-CoV-2 (PCR) Coronavirus NL63 (PCR) Human Metapneumovir PCR Influenza Type A (PCR) Influenza Type B (PCR) M. pneumoniae (PCR) Parainfluenza 1 (PCR) Parainfluenza 2 (PCR) Parainfluenza 3 (PCR) Parainfluenza 4 (PCR) RSV (PCR) Entero/Rhino (PCR) 06/26/24 06/26/24 06/26/24 00:01 00:15 00:24 WBC RBC Hgb POC Hgb Hct POC Hct MCV MCH MCHC RDW Std Deviation RDW Coeff of Jenny Plt Count MPV Immature Gran % (Auto) Neut % (Auto) Lymph % (Auto) [place] % (Auto) Eos % (Auto) Baso % (Auto) Neut # (Auto) Lymph # (Auto) [place] # (Auto) Eos # (Auto) Baso # (Auto) Immature Gran # (Auto) Absolute Nucleated RBC Nucleated RBC % (auto) Toxic Vacuolation Polychromasia Specimen Type Sample Site POC pH POC pCO2 POC pO2 POC HCO3 POC Total CO2 POC Base Excess O2 Sat Pulse Oximetry ABG pH (Temp Correct) ABG pCO2 (Temp Corrct POC ABG pO2 at Pt Temp POC ABG O2 Sat Surya Test VBG pH 7.14 L VBG pCO2 67 H VBG pO2 29 VBG HCO3 23 VBG O2 Saturation < 60.0 VBG Base Excess -7.3 O2 Delivery Device Vent Mode POC FiO2 End Tidal CO2 POC Sodium Sodium POC Potassium Potassium Chloride Carbon Dioxide Anion Gap BUN Creatinine Est Cr Clr Drug Dosing eGFR BUN/Creatinine Ratio Glucose POC Glucose 228 H POC Glucose (other) Lactate 6.8 H* Calcium Phosphorus Magnesium Total Bilirubin Direct Bilirubin AST ALT Alkaline Phosphatase Troponin I High Sens 689.7 H* D C-Reactive Protein Total Protein Albumin Globulin Albumin/Globulin Ratio Lipase Procalcitonin Random Cortisol 43.62 Nasal Screen MRSA (PCR) Negative Adenovirus (PCR) B. pertussis DNA (PCR) B.parapertussis DNA PCR C. pneumoniae DNA (PCR) Coronavirus OC43 (PCR) Coronavirus HKU1 (PCR) Coronavirus 229E (PCR) SARS-CoV-2 (PCR) Coronavirus NL63 (PCR) Human Metapneumovir PCR Influenza Type A (PCR) Influenza Type B (PCR) M. pneumoniae (PCR) Parainfluenza 1 (PCR) Parainfluenza 2 (PCR) Parainfluenza 3 (PCR) Parainfluenza 4 (PCR) RSV (PCR) Entero/Rhino (PCR) 06/26/24 06/26/24 06/26/24 03:13 04:51 05:22 WBC 18.86 H RBC 4.22 Hgb 12.7 POC Hgb 13.6 13.6 Hct 36.5 L POC Hct 40 40 MCV 86.5 D MCH 30.1 MCHC 34.8 RDW Std Deviation 41.9 RDW Coeff of Jenny 13.2 Plt Count 300 MPV 10.4 Immature Gran % (Auto) 0.6 Neut % (Auto) 93.6 Lymph % (Auto) 3.2 [place] % (Auto) 2.5 Eos % (Auto) 0.0 Baso % (Auto) 0.1 Neut # (Auto) 17.63 H Lymph # (Auto) 0.61 L [place] # (Auto) 0.48 Eos # (Auto) 0.00 Baso # (Auto) 0.02 Immature Gran # (Auto) 0.12 Absolute Nucleated RBC Nucleated RBC % (auto) Toxic Vacuolation 1+ Polychromasia 1+ Specimen Type Arterial Arterial Sample Site Art Line Art Line POC pH 7.29 L 7.30 L POC pCO2 48 H 48 H POC pO2 63 L 69 L POC HCO3 23 23 POC Total CO2 24 25 POC Base Excess -3.0 -3.0 O2 Sat Pulse Oximetry 92 92 ABG pH (Temp Correct) 7.288 L 7.287 L ABG pCO2 (Temp Corrct 48 H 49 H POC ABG pO2 at Pt Temp 64 72 POC ABG O2 Sat 89.0 L 91.0 Surya Test NA NA VBG pH VBG pCO2 VBG pO2 VBG HCO3 VBG O2 Saturation VBG Base Excess O2 Delivery Device Ventilator Ventilator Vent Mode AC AC POC FiO2 60 60 End Tidal CO2 26 28 POC Sodium 127 L 126 L Sodium TNP POC Potassium 3.9 4.2 Potassium TNP Chloride 95 L Carbon Dioxide 26 Anion Gap TNP BUN 15 Creatinine 0.66 Est Cr Clr Drug Dosing 46.2 eGFR 85.38 BUN/Creatinine Ratio 22.7 H Glucose 224 H POC Glucose POC Glucose (other) Lactate 2.3 H* Calcium 7.5 L Phosphorus 3.8 Magnesium TNP Total Bilirubin 0.5 Direct Bilirubin TNP AST TNP ALT 35 Alkaline Phosphatase 55 Troponin I High Sens 672.9 H* C-Reactive Protein 4.74 H Total Protein 6.0 Albumin 3.1 L Globulin Albumin/Globulin Ratio Lipase Procalcitonin Random Cortisol Nasal Screen MRSA (PCR) Adenovirus (PCR) B. pertussis DNA (PCR) B.parapertussis DNA PCR C. pneumoniae DNA (PCR) Coronavirus OC43 (PCR) Coronavirus HKU1 (PCR) Coronavirus 229E (PCR) SARS-CoV-2 (PCR) Coronavirus NL63 (PCR) Human Metapneumovir PCR Influenza Type A (PCR) Influenza Type B (PCR) M. pneumoniae (PCR) Parainfluenza 1 (PCR) Parainfluenza 2 (PCR) Parainfluenza 3 (PCR) Parainfluenza 4 (PCR) RSV (PCR) Entero/Rhino (PCR) 06/26/24 06/26/24 06/26/24 05:29 07:13 11:09 WBC RBC Hgb POC Hgb Hct POC Hct MCV MCH MCHC RDW Std Deviation RDW Coeff of Jenny Plt Count MPV Immature Gran % (Auto) Neut % (Auto) Lymph % (Auto) [place] % (Auto) Eos % (Auto) Baso % (Auto) Neut # (Auto) Lymph # (Auto) [place] # (Auto) Eos # (Auto) Baso # (Auto) Immature Gran # (Auto) Absolute Nucleated RBC Nucleated RBC % (auto) Toxic Vacuolation Polychromasia Specimen Type Sample Site POC pH POC pCO2 POC pO2 POC HCO3 POC Total CO2 POC Base Excess O2 Sat Pulse Oximetry ABG pH (Temp Correct) ABG pCO2 (Temp Corrct POC ABG pO2 at Pt Temp POC ABG O2 Sat Surya Test VBG pH VBG pCO2 VBG pO2 VBG HCO3 VBG O2 Saturation VBG Base Excess O2 Delivery Device Vent Mode POC FiO2 End Tidal CO2 POC Sodium Sodium 127 L POC Potassium Potassium 4.1 Chloride Carbon Dioxide Anion Gap BUN Creatinine Est Cr Clr Drug Dosing eGFR BUN/Creatinine Ratio Glucose POC Glucose POC Glucose (other) 232 H 111 H Lactate Calcium Phosphorus Magnesium 1.7 Total Bilirubin Direct Bilirubin 0.1 AST 51 H ALT Alkaline Phosphatase Troponin I High Sens C-Reactive Protein Total Protein Albumin Globulin Albumin/Globulin Ratio Lipase Procalcitonin Random Cortisol Nasal Screen MRSA (PCR) Adenovirus (PCR) B. pertussis DNA (PCR) B.parapertussis DNA PCR C. pneumoniae DNA (PCR) Coronavirus OC43 (PCR) Coronavirus HKU1 (PCR) Coronavirus 229E (PCR) SARS-CoV-2 (PCR) Coronavirus NL63 (PCR) Human Metapneumovir PCR Influenza Type A (PCR) Influenza Type B (PCR) M. pneumoniae (PCR) Parainfluenza 1 (PCR) Parainfluenza 2 (PCR) Parainfluenza 3 (PCR) Parainfluenza 4 (PCR) RSV (PCR) Entero/Rhino (PCR) 06/26/24 06/26/24 13:53 Unknown WBC RBC Hgb POC Hgb 13.6 Hct POC Hct 40 MCV MCH MCHC RDW Std Deviation RDW Coeff of Jenny Plt Count MPV Immature Gran % (Auto) Neut % (Auto) Lymph % (Auto) [place] % (Auto) Eos % (Auto) Baso % (Auto) Neut # (Auto) Lymph # (Auto) [place] # (Auto) Eos # (Auto) Baso # (Auto) Immature Gran # (Auto) Absolute Nucleated RBC Nucleated RBC % (auto) Toxic Vacuolation Polychromasia Specimen Type Sample Site POC pH 7.21 L POC pCO2 61 H POC pO2 35 L POC HCO3 25 H POC Total CO2 27 POC Base Excess -3.0 O2 Sat Pulse Oximetry ABG pH (Temp Correct) ABG pCO2 (Temp Corrct POC ABG pO2 at Pt Temp POC ABG O2 Sat 54.0 L Surya Test VBG pH VBG pCO2 VBG pO2 VBG HCO3 VBG O2 Saturation VBG Base Excess O2 Delivery Device Vent Mode POC FiO2 End Tidal CO2 POC Sodium 126 L Sodium POC Potassium 4.1 Potassium Chloride Carbon Dioxide Anion Gap BUN Creatinine Est Cr Clr Drug Dosing eGFR BUN/Creatinine Ratio Glucose POC Glucose POC Glucose (other) Lactate Calcium Phosphorus Magnesium Total Bilirubin Direct Bilirubin AST ALT Alkaline Phosphatase Troponin I High Sens C-Reactive Protein Total Protein Albumin Globulin Albumin/Globulin Ratio Lipase Procalcitonin Random Cortisol Nasal Screen MRSA (PCR) Adenovirus (PCR) Not Detected B. pertussis DNA (PCR) Not Detected B.parapertussis DNA PCR Not Detected C. pneumoniae DNA (PCR) Not Detected Coronavirus OC43 (PCR) Not Detected Coronavirus HKU1 (PCR) Not Detected Coronavirus 229E (PCR) Not Detected SARS-CoV-2 (PCR) DETECTED A Coronavirus NL63 (PCR) Not Detected Human Metapneumovir PCR Not Detected Influenza Type A (PCR) Not Detected Influenza Type B (PCR) Not Detected M. pneumoniae (PCR) Not Detected Parainfluenza 1 (PCR) Not Detected Parainfluenza 2 (PCR) Not Detected Parainfluenza 3 (PCR) Not Detected Parainfluenza 4 (PCR) Not Detected RSV (PCR) Not Detected Entero/Rhino (PCR) Not Detected Diagnostic Findings Echocardiogram 06/26/2024: Preserved LV systolic function. Severe mitral regurgitation which is eccentric and involves a prolapsed segment. Severely elevated pulmonary pressures Chest x-ray and chest CT all demonstrating parenchymal infiltrates. Differential diagnosis includes pulmonary edema, infectious or inflammatory process. PG Care Time/CCT Total # of Minutes Spent Total Time Spent with Patient: Total time spent is greater than 50% in coordination of care (as documented) at patient's floor/unit and/or counseling patient: Coding Level of Care Code 87028 INT INP/OBS CARE 3/75MIN Diagnoses Cardiac arrest I46.9 Mitral regurgitation I34.0 Pulmonary hypertension I27.20
--- NOTE | 2024-06-26 17:48 | XCELERA ---
[id number]
[2024-06-26] MEDS: ACETAMINOPHEN 1,000 MG/100 ML VIAL IV STA (18:07)
[2024-06-26 18:15] LABS: ANTI-Xa, UFH(UnfractionatedHep 0.56 IU/ml (0.3-0.7)
[2024-06-26] MEDS: MIDAZOLAM BOLUS FROM BAG IV PRN (19:53)
[2024-06-26] MEDS: cefTRIAXone SODIUM 2,000 MG/50 ML BAG IV SCH (20:03)
[2024-06-26 20:06] LABS: Appearance Urine Cloudy (Clear); Bacteria Urine Automated None Seen (None Seen); Bilirubin Urine Negative (Negative); Blood Urine Negative (Negative); Cast Urine Automated >20 /lpf (0-2); Color Urine Dark Yellow; Epithelial Cell Urine Auto >20 /hpf (0-2); Glucose Urine UA Negative (Negative); Hyaline Casts Urine Present /lpf (None Presnt); Ketones Urine Trace (Negative); Leukocyte Esterase Urine Trace (Negative); Nitrite Urine Negative (Negative); Protein Urine 2+ (Negative); RBC Urine Automated 0-2 /hpf (0-2); Specific Gravity Urine 1.026 (1.000-1.030); Urobilinogen Urine Negative (Negative); pH Urine 5.5 (4.5-7.5)
[2024-06-27 05:42] LABS: Basophils # (auto) 0.01 K/uL (0.00-0.20); Basophils % (auto) 0.1 %; Hemoglobin 10.8 g/dl (12.0-16.0); Immature Granulocytes # (auto) 0.08 K/uL (0.01-0.20); Immature Granulocytes % (auto) 0.4 %; Lymphocytes # (auto) 2.16 K/uL (1.20-3.40); Lymphocytes % (auto) 11.9 %; Mean Corpuscular Hemoglobin 29.6 pg (25.0-34.0); Mean Corpuscular Hgb Conc 34.8 g/dL (32.0-36.0); Mean Corpuscular Volume 84.9 fL (80.0-100.0); Monocytes # (auto) 0.74 K/uL (0.11-0.59); Monocytes % (auto) 4.1 %; Neutrophils # (auto) 15.12 K/uL (1.40-6.50); Neutrophils % (auto) 83.5 %; Platelet Count 201 K/uL (130-400); RDW Coefficient of Variation 12.9 % (11.5-14.5); RDW Standard Deviation 39.8 fL (36.4-46.3); Red Blood Count 3.65 M/uL (4.20-5.40); White Blood Count 18.11 K/ul (4.8-10.8)
[2024-06-27 06:12] LABS: BUN Creatinine Ratio 43.1 (10-20); Calcium 7.6 mg/dl (8.6-10.3); Creatinine Clr Calc Pharmacy 57.7 ml/min; Magnesium 1.7 mg/dl (1.7-2.4); Phosphorus 2.7 mg/dl (2.5-4.9); Potassium 4.2 mmol/L (3.5-5.1)
[2024-06-27 06:14] LABS: ANTI-Xa, UFH(UnfractionatedHep 0.57 IU/ml (0.3-0.7)
[2024-06-27] MEDS ORDERED: Nursing to Pharmacy Communication SCH (06:45)
--- NOTE | 2024-06-27 07:16 | Hospitalist Progress Note ---
Date of Service June 27, 2024 Assessment & Plan (1) Septic shock: (2) Lactic acidosis: (3) Multifocal pneumonia: (4) Acute hypoxic respiratory failure: (5) Respiratory arrest: Plan 88 yo female PMHx HTN, HLD, PMR, GERD, osteoarthritis, incontinence, admitted after presenting as a code blue with EMS s/p ROSC #Septic Shock/Respiratory Arrest/Multifocal Pneumonia - CXR with evidence of pneumonia/pulmonary edema/inflammation - Chest CT shoows bilateral opacities, suggestive of pulmonary edema - Remains intubated, sedated on propofol and fentanyl - Requiring pressor therapy on Levophed - Vancomycin, azithromycin and cefepime initiated - Stress dose steroids - biofire panel negative, except for SARS-CoV-2 detected - Currently managed by ICU. Goals of care discussion discussed with ICU attending and patient's family. CODE STATUS changed to DNR/DNI. - Patient will be taken to the [facility] on 06/26 where a [place] will be placed. Further workup per ICU management. - Discontinuing neuromuscular blockade today. - Echocardiogram shows severe prolapse of mitral valve with severe mitral regurgitation. - Consider trialing extubation on 06/28. #Polymyalgia Rheumatica Not on chronic therapy #Other chronic conditions HTN - restart oral antihypertensives when appropriate Chronic cough - restart inhalers when appropriate FENGI: OG tube in place, nutrition consult ordered DVT prophylaxis: Enoxaparin Disposition: ICU Admission and Anticipated Discharge Date Admission Date: June 25, 2024 Supervising Physician Co-Signing Physician Notes Attending attestation Pt seen and examined in concert with Dr. Johnston. In agreement with the documented findings as noted in the resident documentation with any exceptions or additions as noted here. Sedation waning at time of examination, arousable to voice with some response to simple instruction. Patient's daughter at bedside, updated on current course of care. On examination, S1/S2 nl RRR. scattered rales and rhonchi. Ventilator dependent acute hypoxic respiratory failure in the setting of multifocal PNA w/ septic shock - Ongoing wean of sedation for trial of extubation per ICU. IV abx therapy and steroid support with pressor therapy weaning. Else see resident documentation as noted. Subjective Patient seen bedside this morning. Intubated. Slightly more arousable today than previously. Able to respond to some stimuli. Review of Systems Review of Systems: All systems reviewed & are unremarkable except as noted in Subjective Physical Exam Physical Exam: Intubated, sedated and minimally responsive to stimuli HEENT: Sclerae are anicteric. Neck: Central line in place. Lungs: Bronchial breath sounds with reduced breath sounds on the right. Cardiac: The rhythm was regular. Holosystolic murmur. Abdomen: The abdomen was soft and nontender. Extremities: Patient has bilateral radial pulses that are equal in intensity. There is no evidence cyanosis or clubbing. Minimal peripheral edema. Skin: There are no rashes noted on examination today. Results & Data Results & Data Vital Signs (Past 12 Hours) Vital Signs Temp Pulse Resp BP Pulse Ox O2 Del Method FiO2 06/27/24 06:08 105/55 L 06/27/24 06:08 105/55 L 06/27/24 06:03 37.9 C H 61 26 H 96 06/27/24 06:00 37.9 C H 62 26 H 96 06/27/24 05:51 37.9 C H 61 26 H 96 06/27/24 05:42 37.9 C H 61 26 H 96 06/27/24 05:36 37.9 C H 63 26 H 96 06/27/24 05:21 37.9 C H 64 26 H 96 Mechanical Vent 40 06/27/24 05:18 37.8 C H 70 26 H 94 06/27/24 05:00 37.8 C H 60 26 H 96 06/27/24 04:45 37.8 C H 61 26 H 95 06/27/24 04:30 37.7 C H 60 26 H 95 06/27/24 04:06 37.6 C H 62 26 H 95 06/27/24 04:00 40 06/27/24 03:51 37.6 C H 63 26 H 06/27/24 03:42 37.6 C H 63 26 H 95 06/27/24 03:39 37.6 C H 63 26 H 95 06/27/24 03:27 37.6 C H 63 26 H 06/27/24 03:18 37.6 C H 64 26 H 94 06/27/24 03:07 71 26 H 92 40 06/27/24 03:06 37.6 C H 66 26 H 94 06/27/24 02:30 37.6 C H 71 26 H 92 06/27/24 02:27 37.6 C H 74 26 H 93 06/27/24 02:12 37.3 C 70 23 06/27/24 02:00 138/71 06/27/24 02:00 138/71 06/27/24 01:51 37.7 C H 26 H 06/27/24 01:42 37.7 C H 61 26 H 98 06/27/24 01:39 37.7 C H 60 26 H 97 06/27/24 01:21 37.7 C H 61 26 H 97 06/27/24 01:15 37.7 C H 63 26 H 97 06/27/24 01:00 37.7 C H 61 26 H 06/27/24 01:00 113/63 06/27/24 01:00 113/63 06/27/24 00:21 37.8 C H 59 L 26 H 98 06/27/24 00:15 37.8 C H 59 L 26 H 98 06/27/24 00:00 40 06/27/24 00:00 26 H 40 06/26/24 23:54 37.9 C H 58 L 26 H 99 06/26/24 23:45 37.9 C H 58 L 26 H 99 Mechanical Vent 40 06/26/24 23:34 58 L 06/26/24 23:30 38.0 C H 58 L 26 H 98 06/26/24 23:18 38.0 C H 56 L 26 H 98 06/26/24 23:00 121/63 06/26/24 23:00 121/63 06/26/24 22:33 38.0 C H 57 L 26 H 97 06/26/24 22:30 38.0 C H 56 L 26 H 97 06/26/24 22:24 38.0 C H 57 L 26 H 97 06/26/24 22:12 38.0 C H 57 L 26 H 98 06/26/24 22:00 38.1 C H 55 L 23 98 06/26/24 22:00 115/58 L 06/26/24 22:00 115/58 L 06/26/24 21:51 38.1 C H 57 L 23 98 06/26/24 21:46 Mechanical Vent 40 06/26/24 21:42 38.1 C H 55 L 26 H 98 06/26/24 21:30 38.1 C H 56 L 23 98 06/26/24 21:27 38.1 C H 55 L 26 H 98 06/26/24 21:18 38.1 C H 59 L 23 98 06/26/24 21:00 114/59 L 06/26/24 21:00 114/59 L 06/26/24 20:55 120/61 06/26/24 20:55 120/61 06/26/24 20:55 120/61 06/26/24 20:45 38.1 C H 58 L 23 97 06/26/24 20:42 38.2 C H 58 L 23 97 06/26/24 20:30 38.2 C H 60 23 97 06/26/24 20:21 38.2 C H 58 L 26 H 97 06/26/24 20:18 38.2 C H 57 L 23 97 06/26/24 20:17 26 H 40 06/26/24 20:00 40 06/26/24 20:00 38.2 C H 58 L 23 97 06/26/24 20:00 114/59 L 06/26/24 20:00 114/59 L 06/26/24 20:00 114/59 L 06/26/24 19:51 38.2 C H 56 L 23 97 06/26/24 19:21 38.1 C H 58 L 23 95
--- NOTE | 2024-06-27 07:18 | Critical Care Progress Note ---
Date of Service June 27, 2024 Assessment & Plan (1) Respiratory arrest: (2) Acute hypoxic respiratory failure: (3) Multifocal pneumonia: (4) URI (upper respiratory infection): (5) Lactic acidosis: (6) Septic shock: Plan Reason Critically Ill: 1. Distributive shock, as result of vasoplegia +/- sepsis 2. Multifocal pneumonia, post-URI COVID 3. Lactic acidosis 4. Acute hypoxic respiratory failure 2/2 #2 5. ARDS 2/2 #2 6. Respiratory arrest 7. Hypercapnia 2/2 #6, resolved 8. Hyperglycemia without history of DM 9. NSTEMI, type II Neuro - Discontinuing neuromuscular blockade today Analgesia and sedation - Versed infusion as propofol has negative inotropic events patient was requiring 3 pressors - fentanyl gtt APAP PRN fever Daily ETOH: Will require consideration of CIWA monitoring; however, anticipate extended. 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, severe mitral regurgitation: Chronic Respiratory - Mechanically ventilated SpO2 goal > 92% Pulmonary hygiene DuoNebs, PF ratio improving: PEEP has been decreased to 8 FiO2 of 40 - Suspect respiratory embarrassment was largely diffuse alveolar hemorrhage secondary to flash pulmonary edema with contribution of COVID infection - No strong indication for bronchoscopy at this time given rapid improvement Repeat ABG in AM Sputum culture pending GI - Diet: NPO except meds via OGT, - Hold enteral nutrition secondary to high-dose vasoactive medication SUP: H2B Bowel regimen: Miralax RENAL/LYTES - Hyponatremia and hypochloremia - Approximately 3 L positive fluid balance, starting gentle diuresis today Mccoy for accurate I/Os Maintain net even to net negative - Prior discussion with : if patient were to require renal replacement therapy especially given her current medical issues I doubt she would be able to tolerate renal replacement therapy Thiamine daily to facilitate lactate clearance - Repeat lactate this morning ENDO - BG 140-180 per SCC[facility] guidelines: Blood sugars adequately controlled Initiate insulin infusion COVID steroid protocol. Higher ards dosing likely to have increase adverse effects vs lower covid dosing, especially given improvements in oxygenation. HEME - Systemic anticoagulation with heparin no bolus Anemia NOS ID - Rocephin and Zithromax: Day 2 BC x2 pending (drawn in ICU AFTER antibiotics given) - blood and respiratory cultures pending LINES/TUBES/DRAINS - PIV x2 Mccoy (Day #2) ETT (Day #2) OGT (Day #2) Patient's has consented for CVC if needed DVT PROPHYLAXIS - Heparin infusion DISPOSITION - ICU CODE STATUS - DNR in event of subsequent arrest - Discussed with current prognosis, patient has significant high risk features related to cardiac arrest being advanced age and respiratory arrest leading to cardiac arrest. Emphasized under all cardiac arrest survivors survivability rate averages between 10 to 20% and of those 90% have neurologic injury. Also discussed heavy sedative use predisposes elderly patients to significant neurologic issues related to recovery and/or return of function. Also discussed neuromuscular blockade being a risk factor for significant ICU myopathy and prolonged significant critical illness and extensive rehabilitation requirements. Patient had advanced directive and prior discussions with family. I emphasized focusing on what patient would find a acceptable quality of life as we obtain more data in the following hours and possibly days. Emphasized will provide patient with the resources to heal; however, the patient's body has to do the heavy lifting of repair. I am very concerned of a poor functional outcome that may preclude return to significant independent living. - Additional family members anticipate to arrive from [facility], patient's daughter arrived overnight Admission and Anticipated Discharge Date Admission Date: June 25, 2024 Supervising Physician Co-Signing Physician Notes I have personally spent 60 minutes of critical care time in the direct managem ent of this patient. This is a life/limb threatening event. This includes time spent evaluating patient, direct bedside care, chart review, placing orders, interpretation of diagnostic studies, discussion with consultants, patient, and/or family members regarding treatment decisions, as well as other required patient management activities. This time is exclusive of all separately billable procedures, and teaching time and separate from and in addition to any other critical care service time. Subjective Overnight team was able to wean off phenylephrine and decrease Levophed requirements. Increased Nimbex; however, that has now been discontinued Physical Exam Physical Exam: General: Sedated. nontoxic. GCS 3 TP Skin: Warm, dry, Head: Atraumatic Ears, nose, mouth and throat: airway obscured by endotracheal tube Cardiovascular: Normal peripheral perfusion Respiratory: Ventilator settings reviewed Gastrointestinal: Non distended Musculoskeletal: No deformity Results & Data Results & Data Vital Signs (Past 12 Hours) Vital Signs Temp Pulse Resp BP Pulse Ox O2 Del Method FiO2 06/27/24 06:08 105/55 L 06/27/24 06:08 105/55 L 06/27/24 06:03 37.9 C H 61 26 H 96 06/27/24 06:00 37.9 C H 62 26 H 96 06/27/24 05:51 37.9 C H 61 26 H 96 06/27/24 05:42 37.9 C H 61 26 H 96 06/27/24 05:36 37.9 C H 63 26 H 96 06/27/24 05:21 37.9 C H 64 26 H 96 Mechanical Vent 40 06/27/24 05:18 37.8 C H 70 26 H 94 06/27/24 05:00 37.8 C H 60 26 H 96 06/27/24 04:45 37.8 C H 61 26 H 95 06/27/24 04:30 37.7 C H 60 26 H 95 06/27/24 04:06 37.6 C H 62 26 H 95 06/27/24 04:00 40 06/27/24 03:51 37.6 C H 63 26 H 95 06/27/24 03:42 37.6 C H 63 26 H 95 06/27/24 03:39 37.6 C H 63 26 H 95 06/27/24 03:27 37.6 C H 63 26 H 95 06/27/24 03:18 37.6 C H 64 26 H 94 06/27/24 03:07 71 26 H 92 40 06/27/24 03:06 37.6 C H 66 26 H 94 06/27/24 02:30 37.6 C H 71 26 H 92 06/27/24 02:27 37.6 C H 74 26 H 93 06/27/24 02:12 37.3 C 70 23 06/27/24 02:00 138/71 06/27/24 02:00 138/71 06/27/24 01:51 37.7 C H 26 H 06/27/24 01:42 37.7 C H 61 26 H 98 06/27/24 01:39 37.7 C H 60 26 H 97 06/27/24 01:21 37.7 C H 61 26 H 97 06/27/24 01:15 37.7 C H 63 26 H 97 06/27/24 01:00 37.7 C H 61 26 H 06/27/24 01:00 113/63 06/27/24 01:00 113/63 06/27/24 00:21 37.8 C H 59 L 26 H 98 06/27/24 00:15 37.8 C H 59 L 26 H 98 06/27/24 00:00 40 06/27/24 00:00 26 H 40 06/26/24 23:54 37.9 C H 58 L 26 H 99 06/26/24 23:45 37.9 C H 58 L 26 H 99 Mechanical Vent 40 06/26/24 23:34 58 L 06/26/24 23:30 38.0 C H 58 L 26 H 98 06/26/24 23:18 38.0 C H 56 L 26 H 98 06/26/24 23:00 121/63 06/26/24 23:00 121/63 06/26/24 22:33 38.0 C H 57 L 26 H 97 06/26/24 22:30 38.0 C H 56 L 26 H 97 06/26/24 22:24 38.0 C H 57 L 26 H 97 06/26/24 22:12 38.0 C H 57 L 26 H 98 06/26/24 22:00 38.1 C H 55 L 23 98 06/26/24 22:00 115/58 L 06/26/24 22:00 115/58 L 06/26/24 21:51 38.1 C H 57 L 23 98 06/26/24 21:46 Mechanical Vent 40 06/26/24 21:42 38.1 C H 55 L 26 H 98 06/26/24 21:30 38.1 C H 56 L 23 98 06/26/24 21:27 38.1 C H 55 L 26 H 98 06/26/24 21:18 38.1 C H 59 L 23 98 06/26/24 21:00 114/59 L 06/26/24 21:00 114/59 L 06/26/24 20:55 120/61 06/26/24 20:55 120/61 06/26/24 20:55 120/61 06/26/24 20:45 38.1 C H 58 L 23 97 06/26/24 20:42 38.2 C H 58 L 23 97 06/26/24 20:30 38.2 C H 60 23 97 06/26/24 20:21 38.2 C H 58 L 26 H 97 06/26/24 20:18 38.2 C H 57 L 23 97 06/26/24 20:17 26 H 40 06/26/24 20:00 40 06/26/24 20:00 38.2 C H 58 L 23 97 06/26/24 20:00 114/59 L 06/26/24 20:00 114/59 L 06/26/24 20:00 114/59 L 06/26/24 19:51 38.2 C H 56 L 23 97 06/26/24 19:21 38.1 C H 58 L 23 95 Critical Care Results & Data Vital Signs (Past 12 Hours) Vital Signs Temp Pulse Resp BP Pulse Ox O2 Del Method FiO2 06/27/24 06:08 105/55 L 06/27/24 06:08 105/55 L 06/27/24 06:03 37.9 C H 61 26 H 96 06/27/24 06:00 37.9 C H 62 26 H 96 06/27/24 05:51 37.9 C H 61 26 H 96 06/27/24 05:42 37.9 C H 61 26 H 96 06/27/24 05:36 37.9 C H 63 26 H 96 06/27/24 05:21 37.9 C H 64 26 H 96 Mechanical Vent 40 06/27/24 05:18 37.8 C H 70 26 H 94 06/27/24 05:00 37.8 C H 60 26 H 96 06/27/24 04:45 37.8 C H 61 26 H 95 06/27/24 04:30 37.7 C H 60 26 H 95 06/27/24 04:06 37.6 C H 62 26 H 95 06/27/24 04:00 40 06/27/24 03:51 37.6 C H 63 26 H 95 06/27/24 03:42 37.6 C H 63 26 H 95 06/27/24 03:39 37.6 C H 63 26 H 95 06/27/24 03:27 37.6 C H 63 26 H 95 04/19/25 03:18 37.6 C H 64 26 H 94 06/27/24 03:07 71 26 H 92 40 06/27/24 03:06 37.6 C H 66 26 H 94 06/27/24 02:30 37.6 C H 71 26 H 92 06/27/24 02:27 37.6 C H 74 26 H 93 06/27/24 02:12 37.3 C 70 23 06/27/24 02:00 138/71 06/27/24 02:00 138/71 06/27/24 01:51 37.7 C H 26 H 06/27/24 01:42 37.7 C H 61 26 H 98 06/27/24 01:39 37.7 C H 60 26 H 97 06/27/24 01:21 37.7 C H 61 26 H 97 06/27/24 01:15 37.7 C H 63 26 H 97 06/27/24 01:00 37.7 C H 61 26 H 06/27/24 01:00 113/63 06/27/24 01:00 113/63 06/27/24 00:21 37.8 C H 59 L 26 H 98 06/27/24 00:15 37.8 C H 59 L 26 H 98 06/27/24 00:00 40 06/27/24 00:00 26 H 40 06/26/24 23:54 37.9 C H 58 L 26 H 99 06/26/24 23:45 37.9 C H 58 L 26 H 99 Mechanical Vent 40 06/26/24 23:34 58 L 06/26/24 23:30 38.0 C H 58 L 26 H 98 06/26/24 23:18 38.0 C H 56 L 26 H 98 06/26/24 23:00 121/63 06/26/24 23:00 121/63 06/26/24 22:33 38.0 C H 57 L 26 H 97 06/26/24 22:30 38.0 C H 56 L 26 H 97 06/26/24 22:24 38.0 C H 57 L 26 H 97 06/26/24 22:12 38.0 C H 57 L 26 H 98 06/26/24 22:00 38.1 C H 55 L 23 98 06/26/24 22:00 115/58 L 06/26/24 22:00 115/58 L 06/26/24 21:51 38.1 C H 57 L 23 98 06/26/24 21:46 Mechanical Vent 40 06/26/24 21:42 38.1 C H 55 L 26 H 98 06/26/24 21:30 38.1 C H 56 L 23 98 06/26/24 21:27 38.1 C H 55 L 26 H 98 06/26/24 21:18 38.1 C H 59 L 23 98 06/26/24 21:00 114/59 L 06/26/24 21:00 114/59 L 06/26/24 20:55 120/61 06/26/24 20:55 120/61 06/26/24 20:55 120/61 06/26/24 20:45 38.1 C H 58 L 23 97 06/26/24 20:42 38.2 C H 58 L 23 97 06/26/24 20:30 38.2 C H 60 23 97 06/26/24 20:21 38.2 C H 58 L 26 H 97 06/26/24 20:18 38.2 C H 57 L 23 97 06/26/24 20:17 26 H 40 06/26/24 20:00 40 06/26/24 20:00 38.2 C H 58 L 23 97 06/26/24 20:00 114/59 L 06/26/24 20:00 114/59 L 06/26/24 20:00 114/59 L 06/26/24 19:51 38.2 C H 56 L 23 97 Lab & Micro Results (Past 24 Hours) RBC 3.65 M/uL (4.20-5.40) L 06/27/24 WBC 18.11 K/ul (4.8-10.8) H 06/27/24 Hgb 10.8 g/dl (12.0-16.0) L 06/27/24 Hct 31.0 % (37.0-47.0) L 06/27/24 MCV 84.9 fL (80.0-100.0) 06/27/24 MCH 29.6 pg (25.0-34.0) 06/27/24 MCHC 34.8 g/dL (32.0-36.0) 06/27/24 RDW Standard Deviation 39.8 fL (36.4-46.3) 06/27/24 RDW Coefficient of Variation 12.9 % (11.5-14.5) 06/27/24 Plt Count 201 K/uL (130-400) 06/27/24 MPV 11.0 fL (9.4-12.4) 06/27/24 Neutrophils (%) (Auto) 83.5 % 06/27/24 Lymphocytes (%) (Auto) 11.9 % 06/27/24 Monocytes # (Auto) 0.74 K/uL (0.11-0.59) H 06/27/24 Eosinophils # (Auto) 0.00 K/uL (0.00-0.50) 06/27/24 Immature Granulocyte % (Auto) 0.4 % 06/27/24 Neutrophils # (Auto) 15.12 K/uL (1.40-6.50) H 06/27/24 Lymphocytes # (Auto) 2.16 K/uL (1.20-3.40) 06/27/24 Monocytes # (Auto) 0.74 K/uL (0.11-0.59) H 06/27/24 Eosinophils # (Auto) 0.00 K/uL (0.00-0.50) 06/27/24 Basophils # (Auto) 0.01 K/uL (0.00-0.20) 06/27/24 Immature Granulocyte # (Auto) 0.08 K/uL (0.01-0.20) 5 Na 120 mmol/L (136-145) L 06/27/24 K 4.2 mmol/L (3.5-5.1) 06/27/24 Cl 91 mmol/L (98-107) L 06/27/24 CO2 25 mmol/L (21-32) 06/27/24 Anion Gap 4 (3-11) 06/27/24 BUN 25 mg/dl (6-23) H 06/27/24 Creatinine 0.58 mg/dl (0.6-1.2) L 06/27/24 BUN/Creatinine Ratio 43.1 (10-20) H 06/27/24 Glu 133 mg/dl (70-99(Fasting)) H 06/27/24 Ca 7.6 mg/dl (8.6-10.3) L 06/27/24 Phosphorus Level 2.7 mg/dl (2.5-4.9) 06/27/24 Mg 1.7 mg/dl (1.7-2.4) 06/27/24 05:05 Calcium Level 7.6 mg/dl (8.6-10.3) L 06/27/24 05:05 Microbiology 06/26/24 00:24 Aerobic Blood Culture - Preliminary Blood No growth in Aerobic bottle after 24 hours. 06/26/24 00:29 Aerobic Blood Culture - Preliminary Blood No growth in Aerobic bottle after 24 hours. 06/26/24 02:24 Gram Stain - Final Sputum,Vent Suction Diagnostic Findings (Past 24 Hours) Chest X-Ray 06/25/24 21:39 EXAM: XR chest 1V portable CLINICAL HISTORY: Chest pain, nonspecific TECHNIQUE: X-ray image of the chest obtained in 1 frontal projection. COMPARISON: CR 08/22/2023. FINDINGS: ETT with tip 4.7 cm above ebony. Nasogastric tube in situ. Pulmonary Parenchyma: Hyperinflated bilateral lungs showing prominent bronchovascular markings and multifocal areas of air space opacities, right more than left. Atelectatic band in left mid zone. No evidence of pleural effusion or pleural thickening. Heart and Mediastinum: Mild cardiomegaly. Aortic knuckle calcifications. No mediastinal widening or masses. No hilar or mediastinal lymphadenopathy. Bony Thorax: Spondylotic changes in thoracic spine. Bony thorax appears intact without fractures or deformities. Soft Tissues: Soft tissues overlying the chest wall are unremarkable. IMPRESSION: 1. ETT with tip 4.7 cm above ebony. 2. Nasogastric tube in situ. 3. Hyperinflated bilateral lungs showing prominent bronchovascular markings and multifocal areas of air space opacities, right more than left - new finding. 4. Atelectatic band in left mid zone, stable. Electronically signed by Davy Peterson 06-26-2024 08:47 AM I & O Totals 24 Hours 06/26/24 06/27/24 06/28/24 06:59 06:59 06:59 Intake Total 3081.683 / 3081.683 2970.583 / 2970.583 0 / 0 Output Total 40 / 40 210 / 210 Balance 3041.683 / 3041.683 2760.583 / 2760.583 0 / 0 Cumulative 06/25/24 21:21 thru 06/27/24 07:14 Intake Total 6052.266 Output Total 250 Balance 5802.266 RT Ventilator Mngmt (Last Documented) Ventilator Ordered Settings Ventilator Support Mode Assist Control 06/27/24 04:00 Respiratory Rate 26 06/27/24 06:03 Ventilator Tidal Volume 310 06/27/24 04:00 Setting Minute Ventilation 8 06/27/24 03:07 Positive End Expiratory 8 06/27/24 04:00 Pressure Fraction of Inspired Oxygen 40 06/27/24 05:21 Ventilator - PT Measurements Respiratory Rate 26 Exhaled Tidal Volume 315 Minute Ventilation 8 Peak Inspiratory Airway 25 Pressure Plateau Pressure 18 Respiratory Cycle Inspiratory: 1.28 Expiratory Ratio Inspiratory Phase Time 0.6 End-Tidal CO2 27 Static Lung Compliance 31.50 Dynamic Lung Compliance 18.53 Normal Static Lung Compliance 45.00 Patient Measurements Comment patient on 40% FIO2, RN aware. Coding Level of Care Code 19814 CRITICAL CARE 1ST 30-74M Diagnoses Respiratory arrest R09.2 Acute hypoxic respiratory failure J96.01 Multifocal pneumonia J18.9 URI (upper respiratory infection) J06.9 Lactic acidosis E87.20 Septic shock A41.9; R65.21
[2024-06-27] MEDS: dexAMETHasone 6 MG in SYRINGE 0 ML IV SCH (07:28)
--- NOTE | 2024-06-27 08:20 | XRay Report ---
Technique: A frontal view of the chest was obtained Comparison is made to the prior examination dated 06/26/2024 Findings: There has been some improvement in the previously seen diffuse right lung infiltrate, with right perihilar right lung base infiltrate remaining. There is also suspected mild left lung base infiltrate. The heart size is within normal limits. No pleural effusion or pneumothorax is seen. There is suspected mild pulmonary vascular congestion There is an endotracheal tube with its tip 1.7 cm above the ebony. There is a nasogastric tube with its tip within the stomach. There is a right jugular central venous line with its tip in the SVC. There is a possible new [place]-Martha catheter with its tip projecting over the left hilum Impression: Partial resolution of right lung pneumonia ACT 112: Positive. There are findings on this exam that require communication between the performing entity and the patient following Patient Test Result Information Act ([place] ACT 112) guidelines. Electronically signed by Matias Hagan 06-27-2024 08:20 AM
[2024-06-27 08:34] LABS: iSTAT Art Bld Gas pCO2 Correct 44 mmHg (35-46); iSTAT Art Bld Gas pH Corrected 7.395 (7.35-7.45); iSTAT Arterial Blood Gas HCO3 27 meg/L (19-24); iSTAT Arterial Blood Gas pCO2 43 mmHg (35-46); iSTAT Arterial Blood Gas pO2 63 mmHg (80-95); iSTAT Arterial Blood Gas pO2 C 65; iSTAT Carbon Dioxide 28 mmol/L (24-31); iSTAT FiO2 40 %; iSTAT Hematocrit 36 % (37-47); iSTAT Hemoglobin 12.2 g/dl (12.0-16.0); iSTAT Potassium 4.8 mmol/L (3.3-5.0); iSTAT Sample Type Arterial; iSTAT Site Art Line; iSTAT Sodium 121 mmol/L (135-144); iSTAT SpO2 93
[2024-06-27] MEDS: FUROSEMIDE INJ 20 MG/2 ML VIAL IV ONE ×2 (09:35→10:29)
[2024-06-27] MEDS: 4.5GM X1 IV STA (13:24)
[2024-06-27] MEDS: Nursing to Pharmacy Communication SCH (14:11)
[2024-06-27] MEDS: INSULIN ASPART PER UNIT CHARGE SC SCH (16:46)
[2024-06-27] MEDS: 4.5GM EXT INFUSION IV SCH (18:00)
[2024-06-27] MEDS: CALCIUM GLUCONATE 1,000 MG/60 ML BAG IV STA (20:01)
[2024-06-27] MEDS: FUROSEMIDE 40 MG/4 ML VIAL IV ONE (20:01)
[2024-06-27] MEDS: MAGNESIUM SULFATE / D5W 1 GM/100 ML BAG IV SCH (20:01)
[2024-06-28 01:03] LABS: BUN Creatinine Ratio 33.3 (10-20); Calcium 7.8 mg/dl (8.6-10.3); Creatinine Clr Calc Pharmacy 44.6 ml/min; Magnesium 2.6 mg/dl (1.7-2.4)
[2024-06-28 04:51] LABS: iSTAT Art Bld Gas pCO2 Correct 36 mmHg (35-46); iSTAT Art Bld Gas pH Corrected 7.464 (7.35-7.45); iSTAT Arterial Blood Gas HCO3 26 meg/L (19-24); iSTAT Arterial Blood Gas pCO2 35 mmHg (35-46); iSTAT Arterial Blood Gas pH 7.48 (7.35-7.45); iSTAT Arterial Blood Gas pO2 90 mmHg (80-95); iSTAT Arterial Blood Gas pO2 C 95; iSTAT Carbon Dioxide 27 mmol/L (24-31); iSTAT FiO2 30 %; iSTAT Hematocrit 29 % (37-47); iSTAT Hemoglobin 9.9 g/dl (12.0-16.0); iSTAT Potassium 3.9 mmol/L (3.3-5.0); iSTAT Sample Type Arterial; iSTAT Site Art Line; iSTAT Sodium 119 mmol/L (135-144); iSTAT SpO2 98
[2024-06-28 04:58] LABS: Basophils # (auto) 0.02 K/uL (0.00-0.20); Basophils % (auto) 0.1 %; Hematocrit (blood only) 29.2 % (37.0-47.0); Hemoglobin 10.2 g/dl (12.0-16.0); Immature Granulocytes # (auto) 0.13 K/uL (0.01-0.20); Immature Granulocytes % (auto) 0.6 %; Lymphocytes # (auto) 1.95 K/uL (1.20-3.40); Lymphocytes % (auto) 9.5 %; Mean Corpuscular Hemoglobin 29.3 pg (25.0-34.0); Mean Corpuscular Hgb Conc 34.9 g/dL (32.0-36.0); Mean Corpuscular Volume 83.9 fL (80.0-100.0); Mean Platelet Volume 10.6 fL (9.4-12.4); Monocytes % (auto) 5.4 %; Neutrophils # (auto) 17.32 K/uL (1.40-6.50); Neutrophils % (auto) 84.4 %; Platelet Count 233 K/uL (130-400); RDW Coefficient of Variation 12.9 % (11.5-14.5); RDW Standard Deviation 39.6 fL (36.4-46.3); Red Blood Count 3.48 M/uL (4.20-5.40); White Blood Count 20.52 K/ul (4.8-10.8)
[2024-06-28 05:18] LABS: BUN Creatinine Ratio 32.9 (10-20); Calcium 7.9 mg/dl (8.6-10.3); Creatinine Clr Calc Pharmacy 42.5 ml/min; Magnesium 2.5 mg/dl (1.7-2.4); Phosphorus 2.3 mg/dl (2.5-4.9)
[2024-06-28 05:28] LABS: ANTI-Xa, UFH(UnfractionatedHep 0.35 IU/ml (0.3-0.7)
--- NOTE | 2024-06-28 07:55 | Critical Care Progress Note ---
Date of Service June 28, 2024 Assessment & Plan (1) Respiratory arrest: (2) Acute hypoxic respiratory failure: (3) Multifocal pneumonia: (4) URI (upper respiratory infection): (5) Lactic acidosis: (6) Septic shock: Plan Reason Critically Ill: 1. Distributive shock, as result of vasoplegia +/- sepsis 2. Multifocal pneumonia, post-URI 3. Lactic acidosis 4. Acute hypoxic respiratory failure 2/2 #2 5. ARDS 2/2 #2 6. Respiratory arrest 7. Hypercapnia 2/2 #6, resolved 8. Hyperglycemia without history of DM 9. NSTEMI, type II Neuro -discontinue sedation in hopes of vent liberation. Cardiac - Continue norepinephrine for MAP goal > 65mmHg. Defer heparin infusion to card iology. From my perspective, pulmonary artery catheter can be discontinued Respiratory - Currently on SBT. Per discussion with daughter at bedside plan is to pursue extubation today with no plans for reintubation. If she fails, transition to comfort measures. GI - N.p.o. pending clarification of respiratory status RENAL/LYTES - Replete electrolytes as indicated M[facility]oy for accurate I/Os Trend lactate to clearance 1L LR given in ICU, judicious IVF Maintain net even to net negative ENDO - BG 140-180 per [facility] guidelines ISS if needed while inpatient HEME - No acute concerns ID - 2 species of Pseudomonas identified from respiratory culture. Patient completed 2 days of cefepime azithromycin and started on Zosyn yesterday. Sensitivities of Pseudomonas. LINES/TUBES/DRAINS - PIV x2 Mccoy ETT OGT DVT PROPHYLAXIS - Enoxaparin DISPOSITION - ICU CODE STATUS - DNR/DNI Patient has improved somewhat. Unclear how she will do with removal of positive airway pressure given her underlying cardiac history. Family is agreeable to plans for vent liberation with no plans for reintubation and transition to comfort measures should the patient fail. The patient is critically ill with multiorgan system dysfunction. Significant possibility of clinical decline and/or . Total of 54 minutes critical care time was spent in evaluation management including end-of-life discussions with family Admission and Anticipated Discharge Date Admission Date: June 25, 2024 Subjective Patient seen and examined. EMR reviewed. 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 Patient is intubated and sedated Review of Systems Review of Systems: Unobtainable due to endotracheal tube Results & Data Results & Data Vital Signs (Past 12 Hours) Vital Signs Temp Pulse Resp BP Pulse Ox O2 Del Method FiO2 06/28/24 07:15 38.0 C H 77 20 95 06/28/24 07:00 130/76 06/28/24 07:00 38.0 C H 82 18 92 06/28/24 06:45 38.0 C H 75 22 98 06/28/24 06:30 38.0 C H 63 22 98 06/28/24 06:15 38.0 C H 67 22 98 06/28/24 06:00 38.0 C H 62 19 97 06/28/24 06:00 96/51 L 06/28/24 05:30 38.0 C H 63 22 98 06/28/24 05:24 38.0 C H 63 22 98 06/28/24 05:12 38.0 C H 63 22 98 06/28/24 05:03 38.0 C H 63 22 98 06/28/24 05:00 100/54 L 06/28/24 05:00 100/54 L 06/28/24 05:00 100/54 L 06/28/24 04:57 38.0 C H 63 27 H 98 06/28/24 04:45 37.9 C H 63 27 H 99 06/28/24 04:33 37.9 C H 71 28 H 99 06/28/24 04:30 64 23 100 30 06/28/24 04:12 38.0 C H 63 26 H 99 06/28/24 04:00 38.0 C H 63 26 H 97 06/28/24 04:00 93/51 L 06/28/24 04:00 93/51 L 06/28/24 04:00 30 06/28/24 03:24 37.9 C H 63 26 H 97 06/28/24 03:12 37.9 C H 65 26 H 97 06/28/24 03:01 112/57 L 06/28/24 03:00 37.7 C H 67 26 H 98 06/28/24 02:44 37.4 C 72 26 H 97 06/28/24 02:35 37.4 C 69 26 H 06/28/24 02:26 37.9 C H 61 26 H 98 06/28/24 02:14 37.9 C H 61 26 H 98 06/28/24 02:02 37.9 C H 61 26 H 99 06/28/24 02:00 100/51 L 06/28/24 02:00 100/51 L 06/28/24 01:50 37.9 C H 61 26 H 99 06/28/24 01:47 37.9 C H 62 26 H 99 06/28/24 01:32 37.9 C H 62 26 H 99 06/28/24 01:29 37.9 C H 62 26 H 99 06/28/24 01:27 94/53 L 06/28/24 01:27 94/53 L 06/28/24 01:27 94/53 L 06/28/24 01:27 94/53 L 06/28/24 01:02 37.8 C H 63 26 H 99 06/28/24 00:50 37.8 C H 63 26 H 99 06/28/24 00:44 37.8 C H 64 26 H 99 06/28/24 00:11 37.7 C H 68 26 H 99 06/28/24 00:08 37.7 C H 67 26 H 99 06/28/24 00:00 65 06/28/24 00:00 30 06/27/24 23:50 37.7 C H 66 26 H 99 06/27/24 23:47 37.7 C H 66 26 H 98 06/27/24 23:35 37.7 C H 66 26 H 99 Mechanical Vent 06/27/24 23:20 37.7 C H 65 26 H 99 06/27/24 23:06 37.6 C H 64 26 H 98 06/27/24 22:54 37.6 C H 63 26 H 99 06/27/24 22:51 63 26 H 99 30 06/27/24 22:48 37.6 C H 63 26 H 99 06/27/24 22:35 37.6 C H 62 26 H 99 06/27/24 22:21 37.6 C H 63 26 H 99 06/27/24 22:18 37.6 C H 62 26 H 99 06/27/24 21:35 Mechanical Vent 06/27/24 21:30 37.6 C H 63 26 H 98 06/27/24 21:27 37.6 C H 63 26 H 98 Mechanical Vent 30 06/27/24 21:15 37.6 C H 70 26 H 98 06/27/24 21:00 37.6 C H 67 26 H 98 06/27/24 20:51 37.7 C H 64 26 H 97 06/27/24 20:30 37.7 C H 68 26 H 96 06/27/24 20:18 37.7 C H 76 26 H 98 06/27/24 20:15 108/56 L 06/27/24 20:15 108/56 L 06/27/24 20:15 108/56 L 06/27/24 20:09 37.7 C H 65 26 H 97 06/27/24 20:06 37.7 C H 65 26 H 97 06/27/24 20:00 109/56 L 06/27/24 20:00 30 Critical Care Results & Data Vital Signs (Past 12 Hours) Vital Signs Temp Pulse Resp BP Pulse Ox O2 Del Method FiO2 06/28/24 07:15 38.0 C H 77 20 95 06/28/24 07:00 130/76 06/28/24 07:00 38.0 C H 82 18 92 06/28/24 06:45 38.0 C H 75 22 98 06/28/24 06:30 38.0 C H 63 22 98 06/28/24 06:15 38.0 C H 67 22 98 06/28/24 06:00 38.0 C H 62 19 97 06/28/24 06:00 96/51 L 06/28/24 05:30 38.0 C H 63 22 98 06/28/24 05:24 38.0 C H 63 22 98 06/28/24 05:12 38.0 C H 63 22 98 06/28/24 05:03 38.0 C H 63 22 98 06/28/24 05:00 100/54 L 06/28/24 05:00 100/54 L 06/28/24 05:00 100/54 L 06/28/24 04:57 38.0 C H 63 27 H 98 06/28/24 04:45 37.9 C H 63 27 H 99 06/28/24 04:33 37.9 C H 71 28 H 99 06/28/24 04:30 64 23 100 30 06/28/24 04:12 38.0 C H 63 26 H 99 06/28/24 04:00 38.0 C H 63 26 H 97 06/28/24 04:00 93/51 L 06/28/24 04:00 93/51 L 06/28/24 04:00 30 06/28/24 03:24 37.9 C H 63 26 H 97 06/28/24 03:12 37.9 C H 65 26 H 97 06/28/24 03:01 112/57 L 06/28/24 03:00 37.7 C H 67 26 H 98 06/28/24 02:44 37.4 C 72 26 H 97 06/28/24 02:35 37.4 C 69 26 H 06/28/24 02:26 37.9 C H 61 26 H 98 06/28/24 02:14 37.9 C H 61 26 H 98 06/28/24 02:02 37.9 C H 61 26 H 99 06/28/24 02:00 100/51 L 06/28/24 02:00 100/51 L 06/28/24 01:50 37.9 C H 61 26 H 99 06/28/24 01:47 37.9 C H 62 26 H 99 06/28/24 01:32 37.9 C H 62 26 H 99 06/28/24 01:29 37.9 C H 62 26 H 99 06/28/24 01:27 94/53 L 06/28/24 01:27 94/53 L 06/28/24 01:27 94/53 L 06/28/24 01:27 94/53 L 06/28/24 01:02 37.8 C H 63 26 H 99 06/28/24 00:50 37.8 C H 63 26 H 99 06/28/24 00:44 37.8 C H 64 26 H 99 06/28/24 00:11 37.7 C H 68 26 H 99 06/28/24 00:08 37.7 C H 67 26 H 99 06/28/24 00:00 65 06/28/24 00:00 06/27/24 23:50 37.7 C H 66 26 H 99 06/27/24 23:47 37.7 C H 66 26 H 98 06/27/24 23:35 37.7 C H 66 26 H 99 Mechanical Vent 30 06/27/24 23:20 37.7 C H 65 26 H 99 06/27/24 23:06 37.6 C H 64 26 H 98 06/27/24 22:54 37.6 C H 63 26 H 99 06/27/24 22:51 63 26 H 99 30 06/27/24 22:48 37.6 C H 63 26 H 99 06/27/24 22:35 37.6 C H 62 26 H 99 06/27/24 22:21 37.6 C H 63 26 H 99 06/27/24 22:18 37.6 C H 62 26 H 99 06/27/24 21:35 Mechanical Vent 06/27/24 21:30 37.6 C H 63 26 H 98 06/27/24 21:27 37.6 C H 63 26 H 98 Mechanical Vent 30 06/27/24 21:15 37.6 C H 70 26 H 98 06/27/24 21:00 37.6 C H 67 26 H 98 06/27/24 20:51 37.7 C H 64 26 H 97 06/27/24 20:30 37.7 C H 68 26 H 96 06/27/24 20:18 37.7 C H 76 26 H 98 06/27/24 20:15 108/56 L 06/27/24 20:15 108/56 L 06/27/24 20:15 108/56 L 06/27/24 20:09 37.7 C H 65 26 H 97 06/27/24 20:06 37.7 C H 65 26 H 97 06/27/24 20:00 109/56 L 06/27/24 20:00 30 Lab & Micro Results (Past 24 Hours) RBC 3.48 M/uL (4.20-5.40) L 06/28/24 WBC 20.52 K/ul (4.8-10.8) H 06/28/24 Hgb 10.2 g/dl (12.0-16.0) L 06/28/24 Hct 29.2 % (37.0-47.0) L 06/28/24 MCV 83.9 fL (80.0-100.0) 06/28/24 MCH 29.3 pg (25.0-34.0) 06/28/24 MCHC 34.9 g/dL (32.0-36.0) 06/28/24 RDW Standard Deviation 39.6 fL (36.4-46.3) 06/28/24 RDW Coefficient of Variation 12.9 % (11.5-14.5) 06/28/24 Plt Count 233 K/uL (130-400) 06/28/24 MPV 10.6 fL (9.4-12.4) 06/28/24 Neutrophils (%) (Auto) 84.4 % 06/28/24 Lymphocytes (%) (Auto) 9.5 % 06/28/24 Monocytes # (Auto) 1.10 K/uL (0.11-0.59) H 06/28/24 Eosinophils # (Auto) 0.00 K/uL (0.00-0.50) 06/28/24 Immature Granulocyte % (Auto) 0.6 % 06/28/24 Neutrophils # (Auto) 17.32 K/uL (1.40-6.50) H 06/28/24 Lymphocytes # (Auto) 1.95 K/uL (1.20-3.40) 06/28/24 Monocytes # (Auto) 1.10 K/uL (0.11-0.59) H 06/28/24 Eosinophils # (Auto) 0.00 K/uL (0.00-0.50) 06/28/24 Basophils # (Auto) 0.02 K/uL (0.00-0.20) 06/28/24 Immature Granulocyte # (Auto) 0.13 K/uL (0.01-0.20) 5 Na 120 mmol/L (136-145) L 06/28/24 K 4.0 mmol/L (3.5-5.1) 06/28/24 Cl 89 mmol/L (98-107) L 06/28/24 CO2 27 mmol/L (21-32) 06/28/24 Anion Gap 4 (3-11) 06/28/24 BUN 26 mg/dl (6-23) H 06/28/24 Creatinine 0.79 mg/dl (0.6-1.2) 06/28/24 BUN/Creatinine Ratio 32.9 (10-20) H 06/28/24 Glu 153 mg/dl (70-99(Fasting)) H 06/28/24 Ca 7.9 mg/dl (8.6-10.3) L 06/28/24 Phosphorus Level 2.3 mg/dl (2.5-4.9) L 06/28/24 Mg 2.5 mg/dl (1.7-2.4) H 06/28/24 04:46 Calcium Level 7.9 mg/dl (8.6-10.3) L 06/28/24 04:46 Surya Test NA 06/28/24 04:34 Microbiology 06/26/24 00:24 Aerobic Blood Culture - Preliminary Blood No growth in Aerobic bottle after 48 hours. Anaerobic Blood Culture - Final 06/26/24 00:29 Aerobic Blood Culture - Preliminary Blood No growth in Aerobic bottle after 48 hours. Anaerobic Blood Culture - Final 06/26/24 02:24 Gram Stain - Final Sputum,Vent Suction Sputum Culture - Preliminary Pseudomonas aeruginosa Pseudomonas aeruginosa#2 Diagnostic Findings (Past 24 Hours) Chest X-Ray 06/27/24 07:22 Technique: A frontal view of the chest was obtained Comparison is made to the prior examination dated 06/26/2024 Findings: There has been some improvement in the previously seen diffuse right lung infiltrate, with right perihilar right lung base infiltrate remaining. There is also suspected mild left lung base infiltrate. The heart size is within normal limits. No pleural effusion or pneumothorax is seen. There is suspected mild pulmonary vascular congestion There is an endotracheal tube with its tip 1.7 cm above the ebony. There is a nasogastric tube with its tip within the stomach. There is a right jugular central venous line with its tip in the SVC. There is a possible new [place]-Martha catheter with its tip projecting over the left hilum Impression: Partial resolution of right lung pneumonia ACT 112: Positive. There are findings on this exam that require communication between the performing entity and the patient following Patient Test Result Information Act ([place] ACT 112) guidelines. Electronically signed by Matias Hagan 06-27-2024 08:20 AM I & O Totals 24 Hours 06/27/24 06/28/24 06/29/24 06:59 06:59 06:59 Intake Total 2970.583 / 2970.583 1910.684 / 1910.684 249.086 / 249.086 Output Total 410 / 410 1500 / 1500 Balance 2560.583 / 2560.583 410.684 / 410.684 249.086 / 249.086 Cumulative 06/25/24 21:21 thru 06/28/24 07:04 Intake Total 8212.036 Output Total 1950 Balance 6262.036 RT Ventilator Mngmt (Last Documented) Ventilator Ordered Settings Ventilator Support Mode Assist Control 06/28/24 04:30 Respiratory Rate 20 06/28/24 07:15 Ventilator Tidal Volume 310 06/28/24 04:30 Setting Minute Ventilation 6 06/28/24 04:30 Ventilator Positive Pressure 10 06/27/24 09:10 Support Setting Positive End Expiratory 8 06/28/24 04:30 Pressure Fraction of Inspired Oxygen 30 06/28/24 04:30 Machine Comment placed back on AC. inc sedation 06/27/24 11:39 by RN Ventilator - PT Measurements Respiratory Rate 20 Exhaled Tidal Volume 309 Minute Ventilation 6 Peak Inspiratory Airway 21 Pressure Plateau Pressure 16 Respiratory Cycle Inspiratory: 1:2.3 Expiratory Ratio Inspiratory Phase Time 0.8 End-Tidal CO2 30 Static Lung Compliance 38.63 Dynamic Lung Compliance 23.77 Normal Static Lung Compliance 46.00 Patient Measurements Comment Vent changes made after ABG results were obtained Coding Level of Care Code 25227 CRITICAL CARE 1ST 30-74M Diagnoses Respiratory arrest R09.2 Acute hypoxic respiratory failure J96.01 Multifocal pneumonia J18.9 URI (upper respiratory infection) J06.9 Lactic acidosis E87.20 Septic shock A41.9; R65.21
--- NOTE | 2024-06-28 08:08 | XRay Report ---
HISTORY: Intubated. Respiratory failure. TECHNIQUE: Portable AP radiograph of the chest. Chest CT dated 06/25/2024. COMPARISON: Chest radiograph dated 06/28/2023. FINDINGS: Endotracheal tube tip is less than 2 cm above the ebony. Small right pleural effusion. Pulmonary vascular congestion. Dense right hilar/perihilar opacity. Left lung base/retrocardiac opacity. No pneumothorax. Cardiomegaly. Left-sided aortic arch. Midline trachea. Degenerative changes of the spine. IMPRESSION: 1. No significant interval change when allowing for differences in positioning/technique. 2. Endotracheal tube is low measuring less than 2 cm above the ebony. Consider withdrawing the tube 1 to 2 cm in reevaluating tip position. 3. Cardiomegaly with pulmonary vascular congestion and pulmonary edema suggesting CHF. Small pleural effusions. 4. Superimposedmasslike opacity overlying the right hilum and involving the left lung base/retrocardiac region could represent associated alveolar edema or pneumonia. Follow-up chest CT is recommended in 1 to 2 months to evaluate for resolution. Electronically signed by Elpidio Brothers 06-28-2024 08:08 AM
[2024-06-28] MEDS: ACETAMINOPHEN 1,000 MG/100 ML VIAL IV STA (11:45)
[2024-06-28 12:04] VITALS: TEMP 99.5
--- NOTE | 2024-06-28 14:06 | Hospitalist Progress Note ---
Date of Service June 28, 2024 Assessment & Plan (1) Septic shock: (2) Lactic acidosis: (3) Multifocal pneumonia: (4) Acute hypoxic respiratory failure: (5) Respiratory arrest: Plan 88 yo female PMHx HTN, HLD, PMR, GERD, osteoarthritis, incontinence she been having shortness of breath, coughing spell for weeks, on 06/25/2024 admitted after presenting as a code blue with EMS s/p ROSC, she's was in septic shock, found to have covid, bactereial pneumonia with pseudomonas. she s/p LHC on 06/26. the ICU team was able to wean the pressor requirement. also noted to has significant mitral valve disorder #Septic Shock/Respiratory Arrest/Multifocal Pneumonia - sputm culture grow pseudomonas, c/w cefepime, vancomycin and zpack check nasal MRSA and that will help us remove vancomcyin extubated on 06/28/2024 , weaning levophad dosage - Remains intubated, sedated on propofol and fentanyl - Stress dose steroids code status family requested to not re-intubated covid infection cardiac arrest s/p ROSC admitted on 06/25/2024 s/p LHC on 06/26, cardiology suspect the cause of cardiac arrest related to hypoxemia #Polymyalgia Rheumatica Not on chronic therapy #Other chronic conditions HTN - hold current BP med given septic shock Chronic cough - restart inhalers when appropriate. FENGI: OG tube in place, nutrition consult ordered DVT prophylaxis: Enoxaparin Disposition: ICU Admission and Anticipated Discharge Date Admission Date: June 25, 2024 Subjective blind aide plan for extubation today her sputum culture grown pseudomonas, she's on zosyn she's able to open/close her eye , and [facility] Results & Data Results & Data Vital Signs (Past 12 Hours) Vital Signs Temp Pulse Resp BP Pulse Ox FiO2 06/28/24 11:48 77 24 96 06/28/24 11:30 71 22 97 06/28/24 11:15 72 23 98 06/28/24 11:03 72 21 98 06/28/24 11:00 105/52 L 06/28/24 10:51 86 23 91 06/28/24 10:45 94 H 22 89 L 06/28/24 10:30 37.5 C 79 23 91 06/28/24 10:00 131/70 06/28/24 10:00 37.7 C H 91 H 20 97 06/28/24 09:51 37.8 C H 84 20 96 06/28/24 09:15 37.9 C H 67 20 98 06/28/24 09:03 37.9 C H 66 18 97 06/28/24 09:00 110/58 L 06/28/24 08:54 37.9 C H 68 17 97 06/28/24 08:30 37.9 C H 66 16 97 06/28/24 08:10 71 15 97 30 06/28/24 08:00 114/65 06/28/24 08:00 65 06/28/24 07:18 38.0 C H 72 22 94 06/28/24 07:15 38.0 C H 77 20 95 06/28/24 07:00 130/76 06/28/24 07:00 38.0 C H 82 18 92 06/28/24 06:45 38.0 C H 75 22 98 06/28/24 06:30 38.0 C H 63 22 98 06/28/24 06:15 38.0 C H 67 22 98 06/28/24 06:00 38.0 C H 62 19 97 06/28/24 06:00 96/51 L 06/28/24 05:30 38.0 C H 63 22 98 06/28/24 05:24 38.0 C H 63 22 98 06/28/24 05:12 38.0 C H 63 22 98 06/28/24 05:03 38.0 C H 63 22 98 06/28/24 05:00 100/54 L 06/28/24 05:00 100/54 L 06/28/24 05:00 100/54 L 06/28/24 04:57 38.0 C H 63 27 H 98 06/28/24 04:45 37.9 C H 63 27 H 99 06/28/24 04:33 37.9 C H 71 28 H 99 06/28/24 04:30 64 23 100 30 06/28/24 04:12 38.0 C H 63 26 H 99 06/28/24 04:00 38.0 C H 63 26 H 97 06/28/24 04:00 93/51 L 06/28/24 04:00 93/51 L 06/28/24 04:00 30 06/28/24 03:24 37.9 C H 63 26 H 97 06/28/24 03:12 37.9 C H 65 26 H 97 06/28/24 03:01 112/57 L 06/28/24 03:00 37.7 C H 67 26 H 98 06/28/24 02:44 37.4 C 72 26 H 97 06/28/24 02:35 37.4 C 69 26 H 06/28/24 02:26 37.9 C H 61 26 H 98 06/28/24 02:14 37.9 C H 61 26 H 98 06/28/24 02:02 37.9 C H 61 26 H 99 06/28/24 02:00 100/51 L 06/28/24 02:00 100/51 L Laboratory Results Laboratory Results WBC 20.52 K/ul (4.8-10.8) H 06/28/24 04:46 RBC 3.48 M/uL (4.20-5.40) L 06/28/24 04:46 Hgb 10.2 g/dl (12.0-16.0) L 06/28/24 04:46 POC Hgb 9.9 g/dl (12.0-16.0) L 06/28/24 04:34 Hct 29.2 % (37.0-47.0) L 06/28/24 04:46 POC Hct 29 % (37-47) L 06/28/24 04:34 MCV 83.9 fL (80.0-100.0) 06/28/24 04:46 MCH 29.3 pg (25.0-34.0) 06/28/24 04:46 MCHC 34.9 g/dL (32.0-36.0) 06/28/24 04:46 RDW Std Deviation 39.6 fL (36.4-46.3) 06/28/24 04:46 RDW Coeff of Jenny 12.9 % (11.5-14.5) 06/28/24 04:46 Plt Count 233 K/uL (130-400) 06/28/24 04:46 MPV 10.6 fL (9.4-12.4) 06/28/24 04:46 Immature Gran % (Auto) 0.6 % 06/28/24 04:46 Neut % (Auto) 84.4 % 06/28/24 04:46 Lymph % (Auto) 9.5 % 06/28/24 04:46 [place] % (Auto) 5.4 % 06/28/24 04:46 Eos % (Auto) 0.0 % 06/28/24 04:46 Baso % (Auto) 0.1 % 06/28/24 04:46 Neut # (Auto) 17.32 K/uL (1.40-6.50) H 06/28/24 04:46 Lymph # (Auto) 1.95 K/uL (1.20-3.40) 06/28/24 04:46 [place] # (Auto) 1.10 K/uL (0.11-0.59) H 06/28/24 04:46 Eos # (Auto) 0.00 K/uL (0.00-0.50) 06/28/24 04:46 Baso # (Auto) 0.02 K/uL (0.00-0.20) 06/28/24 04:46 Immature Gran # (Auto) 0.13 K/uL (0.01-0.20) 06/28/24 04:46 Absolute Nucleated RBC 0.04 K/uL (0.00-0.12) 06/25/24 21:41 Nucleated RBC % (auto) 0.3 % 06/25/24 21:41 Toxic Vacuolation 1+ 06/26/24 04:51 Polychromasia 1+ 06/26/24 04:51 Heparin Anti-Xa, Unfract 0.35 IU/ml (0.3-0.7) 06/28/24 04:36 Specimen Type Arterial 06/28/24 04:34 Sample Site Art Line 06/28/24 04:34 POC pH 7.48 (7.35-7.45) H 06/28/24 04:34 POC pCO2 35 mmHg (35-46) 06/28/24 04:34 POC pO2 90 mmHg (80-95) 06/28/24 04:34 POC HCO3 26 kirt/L (19-24) H 06/28/24 04:34 POC Total CO2 27 mmol/L (24-31) 06/28/24 04:34 POC Base Excess 2.0 kirt/L (-9-1.8) H 06/28/24 04:34 O2 Sat Pulse Oximetry 98 06/28/24 04:34 ABG pH (Temp Correct) 7.464 (7.35-7.45) H 06/28/24 04:34 ABG pCO2 (Temp Corrct 36 mmHg (35-46) 06/28/24 04:34 POC ABG pO2 at Pt Temp 95 06/28/24 04:34 POC ABG O2 Sat 98.0 % (90-95) H 06/28/24 04:34 Surya Test NA 06/28/24 04:34 VBG pH 7.14 (7.36-7.41) L 06/26/24 00:24 VBG pCO2 67 mmHg (38-50) H 06/26/24 00:24 VBG pO2 29 mmHg 06/26/24 00:24 VBG HCO3 23 mmol/L 06/26/24 00:24 VBG O2 Saturation < 60.0 % 06/26/24 00:24 VBG Base Excess -7.3 mEq/L 06/26/24 00:24 O2 Delivery Device Ventilator 06/28/24 04:34 Vent Mode AC 06/28/24 04:34 POC FiO2 30 % 06/28/24 04:34 End Tidal CO2 25 06/28/24 04:34 POC Sodium 119 mmol/L (135-144) L* 06/28/24 04:34 Sodium 120 mmol/L (136-145) L 06/28/24 04:46 POC Potassium 3.9 mmol/L (3.3-5.0) 06/28/24 04:34 Potassium 4.0 mmol/L (3.5-5.1) 06/28/24 04:46 Chloride 89 mmol/L (98-107) L 06/28/24 04:46 Carbon Dioxide 27 mmol/L (21-32) 06/28/24 04:46 Anion Gap 4 (3-11) 06/28/24 04:46 BUN 26 mg/dl (6-23) H 06/28/24 04:46 Creatinine 0.79 mg/dl (0.6-1.2) 06/28/24 04:46 Est Cr Clr Drug Dosing 42.5 ml/min 06/28/24 04:46 eGFR 72.80 06/28/24 04:46 BUN/Creatinine Ratio 32.9 (10-20) H 06/28/24 04:46 Glucose 153 mg/dl (70-99(Fasting)) H 06/28/24 04:46 POC Glucose 151 mg/dl (70-99) H 06/28/24 04:08 POC Glucose (other) 174 mg/dl (70-99) H 06/28/24 11:28 Lactate 1.2 mmol/L (0.4-2.0) 06/28/24 08:43 Calcium 7.9 mg/dl (8.6-10.3) L 06/28/24 04:46 Phosphorus 2.3 mg/dl (2.5-4.9) L 06/28/24 04:46 Magnesium 2.5 mg/dl (1.7-2.4) H 06/28/24 04:46 Total Bilirubin 0.5 mg/dl (0.2-1.0) 06/26/24 04:51 Direct Bilirubin 0.1 mg/dl (0-0.2) 06/26/24 07:13 AST 51 U/L (13-39) H 06/26/24 07:13 ALT 35 U/L (7-52) 06/26/24 04:51 Alkaline Phosphatase 55 U/L (34-104) 06/26/24 04:51 Troponin I High Sens 672.9 pg/ml (0-14) H* 06/26/24 04:51 C-Reactive Protein 4.74 mg/dl (0-0.5) H 06/26/24 04:51 Total Protein 6.0 gm/dl (6.0-8.3) 06/26/24 04:51 Albumin 3.1 gm/dl (3.4-5.0) L 06/26/24 04:51 Globulin 3.2 gm/dl (2.5-4.0) 06/25/24 21:41 Albumin/Globulin Ratio 1.0 (0.9-2) 06/25/24 21:41 Lipase 9 U/L (11-82) L 06/25/24 21:41 Procalcitonin < 0.02 ng/ml (0-0.5) 06/25/24 21:46 Random Cortisol 43.62 mcg/dl 06/26/24 00:24 Cortisol AM Sample 9.03 mcg/dl (6.2-22.6) 06/28/24 08:43 Urine Color Dark Yellow 06/26/24 19: Urine Appearance Cloudy (Clear) A 06/26/24 19:30 Urine pH 5.5 (4.5-7.5) 06/26/24 19:30 Ur Specific [place] 1.026 (1.000-1.030) 06/26/24 19: Urine Protein 2+ (Negative) H 06/26/24 19: Urine Glucose (UA) Negative (Negative) 06/26/24: Urine Ketones Trace (Negative) H 06/26/24: Urine Blood Negative (Negative) 06/26/24: Urine Nitrite Negative (Negative) 06/26/24: Urine Bilirubin Negative (Negative) 06/26/24: Urine Urobilinogen Negative (Negative) 06/26/24 19: Ur Leukocyte Esterase Trace (Negative) H 06/26/24 19:30 Urine WBC (Auto) 6-10 /hpf (0-5) H 06/26/24: Urine RBC (Auto) 0-2 /hpf (0-2) 06/26/24: U Hyaline Cast (Auto) >20 /lpf (0-2) H 06/26/24 19: U Epithel Cells (Auto) >20 /hpf (0-2) H 06/26/24 19:30 Urine Bacteria (Auto) None Seen (None Seen) 06/26/24 19: Hyaline Casts Present /lpf (None Presnt) A 06/26/24 19: Nasal Screen MRSA (PCR) Negative (Negative) 06/26/24 00:01 Adenovirus (PCR) Not Detected (NotDetected) 06/26/24 Unknown B. pertussis DNA (PCR) Not Detected (NotDetected) 06/26/24 Unknown B.parapertussis DNA PCR Not Detected (NotDetected) 06/26/24 Unknown C. pneumoniae DNA (PCR) Not Detected (NotDetected) 06/26/24 Unknown Coronavirus OC43 (PCR) Not Detected (NotDetected) 06/26/24 Unknown Coronavirus HKU1 (PCR) Not Detected (NotDetected) 06/26/24 Unknown Coronavirus 229E (PCR) Not Detected (NotDetected) 06/26/24 Unknown SARS-CoV-2 (PCR) DETECTED (NotDetected) A 06/26/24 Unknown Coronavirus NL63 (PCR) Not Detected (NotDetected) 06/26/24 Unknown Human Metapneumovir PCR Not Detected (NotDetected) 06/26/24 Unknown Influenza Type A (PCR) Not Detected (NotDetected) 06/26/24 Unknown Influenza Type B (PCR) Not Detected (NotDetected) 06/26/24 Unknown M. pneumoniae (PCR) Not Detected (NotDetected) 06/26/24 Unknown Parainfluenza 1 (PCR) Not Detected (NotDetected) 06/26/24 Unknown Parainfluenza 2 (PCR) Not Detected (NotDetected) 06/26/24 Unknown Parainfluenza 3 (PCR) Not Detected (NotDetected) 06/26/24 Unknown Parainfluenza 4 (PCR) Not Detected (NotDetected) 06/26/24 Unknown RSV (PCR) Not Detected (NotDetected) 06/26/24 Unknown Entero/Rhino (PCR) Not Detected (NotDetected) 06/26/24 Unknown Impressions KUB X-Ray 06/25/24 21:44 Exam(s): XR KUB EXAM: XR Abdomen, 1 View CLINICAL HISTORY: Reason for exam: og tube. TECHNIQUE: Frontal supine view of the abdomen/pelvis. COMPARISON: No relevant prior studies available. FINDINGS/IMPRESSION: Enteric tube tip in the stomach. Electronically signed by: Chela Hernandez M.D. 06/25/24 23:[address] 06/25/24 22:00 CR Exam(s): CT CHEST Without Contrast EXAM: CT Chest Without Intravenous Contrast CLINICAL HISTORY: Reason for exam: Respiratory arrest, characterize parenchyma. TECHNIQUE: Axial computed tomography images of the chest without intravenous contrast. CTDI is 13.65 mGy and DLP is 481.58 mGy-cm. Automated exposure control was utilized for the study. A dose lowering technique was utilized adhering to the principles of ALARA. COMPARISON: No relevant prior studies available. FINDINGS: Limitations: Respiratory motion artifact. Lungs: Widespread bilateral ground-glass opacities and interstitial thickening. Additional bilateral consolidative opacities extending along the bronchovascular bundles in the mid and lower lung cummings. Pleural space: Small pleural effusions. No pneumothorax. Heart: Coronary artery atherosclerosis and mitral annular calcification. Small pericardial effusion. No cardiomegaly. Bones/joints: Skeletal evaluation limited by motion. Suggestion of recent chest compressions with probable nondisplaced buckle fractures of multiple bilateral anterior ribs. Sternal body fracture cannot be excluded in the setting of motion. No dislocation. Soft tissues: Unremarkable. Vasculature: No aortic aneurysm. Lymph nodes: Unremarkable. No adenopathy by size criteria. Tubes, lines and devices: Endotracheal tube terminates above the ebony. Enteric tube extends to the stomach. IMPRESSION: 1. Widespread bilateral ground-glass opacities and interstitial thickening. Such parenchymal lung abnormalities are frequently seen after chest compressions. Pulmonary edema is likely present. 2. Additional bilateral consolidative opacities extending along the bronchovascular bundles in the mid and lower lung cummings, suspicious for pneumonia. Imaging follow-up to resolution recommended. 3. Small pleural effusions. 4. Skeletal evaluation limited by motion. Suggestion of recent chest compressions with probable nondisplaced buckle fractures of multiple bilateral anterior ribs. Sternal body fracture cannot be excluded in the setting of motion. Communications: 06/26/24 02:14 Call Nurse MARTÍN Stinson on 06/26 02:15 (-04:00) Electronically signed by: Chela Hernandez M.D. 06/26/24 02:17 AM Chest X-Ray 06/28/24 06:00 HISTORY: Intubated. Respiratory failure. TECHNIQUE: Portable AP radiograph of the chest. Chest CT dated 06/25/2024. COMPARISON: Chest radiograph dated 06/28/2023. FINDINGS: Endotracheal tube tip is less than 2 cm above the ebony. Small right pleural effusion. Pulmonary vascular congestion. Dense right hilar/perihilar opacity. Left lung base/retrocardiac opacity. No pneumothorax. Cardiomegaly. Left-sided aortic arch. Midline trachea. Degenerative changes of the spine. IMPRESSION: 1. No significant interval change when allowing for differences in positioning/technique. 2. Endotracheal tube is low measuring less than 2 cm above the ebony. Consider withdrawing the tube 1 to 2 cm in reevaluating tip position. 3. Cardiomegaly with pulmonary vascular congestion and pulmonary edema suggesting CHF. Small pleural effusions. 4. Superimposedmasslike opacity overlying the right hilum and involving the left lung base/retrocardiac region could represent associated alveolar edema or pneumonia. Follow-up chest CT is recommended in 1 to 2 months to evaluate for resolution. Electronically signed by Elpidio Brothers 06-28-2024 08:08 AM Medications Administered Current Inpatient Medications Albuterol (Albuterol 0.083% Nebu Soln 3 Ml Vial) 2.5 mg NEB Q6H PRN; Protocol PRN Reason: Shortness Of Breath Or Wheezing Stop: 07/25/24 22:10 Albuterol (Albut/Ipratrop 3mg/0.5mg Neb 3 Ml Vial) 3 ml NEB Q6R PRN; Protocol PRN Reason: Shortness Of Breath Or Wheezing Stop: 07/26/24 00:59 Dextrose (Dextrose 50% 50 Ml Syringe) 25 - 50 ml IV UD PRN; Protocol PRN Reason: Hypoglycemia Protocol Stop: 07/26/24 00:26 Famotidine (Famotidine Susp 40 Mg/5 Ml Udp) 40 mg GT DAILY [facility] Stop: 07/26/24 08:59 Last Admin: 06/28/24 07:47 Dose: 40 mg Fentanyl Citrate (Fentanyl Bolus From Bag) 50 mcg IV Q60M PRN PRN Reason: Pain or Agitation Stop: 07/09/24 23:25 Last Admin: 06/27/24 21:06 Dose: 50 mcg Glucagon (Glucagon For Inj 1 Mg Vial) 1 mg SQ UD PRN; Protocol PRN Reason: Hypoglycemia Protocol Stop: 07/26/24 00:26 Glucose (Glucose 40% Gel 15 Gm Tube) 15 - 30 gm PO UD PRN; Protocol PRN Reason: Hypoglycemia Protocol Stop: 07/26/24 00:26 Glucose (Glucose 10 Tab/Tube) 4 - 8 tab PO UD PRN; Protocol PRN Reason: Hypoglycemia Protocol Stop: 07/26/24 00:26 Azithromycin (Zithromax) 500 mg in 255 mls @ 127.5 mls/hr IV Q24H [facility] Stop: 06/30/24 22:59 Last Infusion: 06/28/24 01:00 Dose: Infused Norepinephrine Bitartrate (Levophed/D5w) 4 mg in 250 mls @ 17.888 mls/hr IV .[id number] [facility]; Protocol Stop: 07/25/24 22:44 Last Titration: 06/28/24 12:47 Dose: 0.05 mcg/kg/min, 9.9 mls/hr Fentanyl Citrate (Fentanyl Citrate) 2,500 mcg in 250 mls @ 0 mls/hr IV .Q0M [facility]; Protocol Stop: 07/09/24 23:29 Last Titration: 06/28/24 08:15 Dose: 0 mcg/hr, 0 mls/hr Heparin Sodium/Dextrose (Heparin 83707 Unit/500 Ml D5w) 25,000 units in 500 mls @ 19 mls/hr IV .Q24H [facility]; Protocol Stop: 07/26/24 09:59 Last Admin: 06/28/24 11:45 Dose: 950 units/hr, 19 mls/hr Midazolam HCl (Versed) 125 mg in 250 mls @ 0 mls/hr IV .Q0M [facility]; Protocol Stop: 07/26/24 09:44 Last Titration: 06/28/24 06:03 Dose: Infused Thiamine HCl 100 mg/ Syringe 10 mls @ 2 mls/min IV QAM [facility] Stop: 07/26/24 09:44 Last Admin: 06/28/24 07:47 Dose: 2 mls/min Dexamethasone 6 mg/ Syringe 1.5 mls @ 1 mls/min IV DAILY [facility] Stop: 07/27/24 08:59 Last Admin: 06/28/24 07:46 Dose: 1 mls/min Piperacillin Sod/Tazobactam Sod (Zosyn) 4.5 gm in 100 mls @ 33.333 mls/hr IV Q6H [facility]; Protocol Stop: 07/04/24 17:59 Last Admin: 06/28/24 12:09 Dose: 33.3 mls/hr Insulin Aspart (Insulin Aspart Per Unit Charge) 0 units SC Q4H [facility] Stop: 07/27/24 15:59 Last Admin: 06/28/24 11:41 Dose: Not Given Midazolam HCl (Midazolam Bolus From Bag) 2 mg IV Q60M PRN PRN Reason: Sedation Stop: 07/26/24 09:34 Last Admin: 06/27/24 21:06 Dose: 2 mg Miscellaneous (Carbohydrates For Hypoglycemia ) 15 - 30 gm PO UD PRN PRN Reason: Hypoglycemia Protocol Stop: 07/26/24 00:26 Polyethylene Glycol (Polyethylene (Miralax) 17 Gm Pack) 17 gm PO DAILY [facility]OTO Stop: 07/26/24 08:59 Last Admin: 06/28/24 11:40 Dose: Not Given PG Care Time/CCT Total # of Minutes Spent Total Time Spent with Patient: Total time spent is greater than 50% in coordination of care (as documented) at patient's floor/unit and/or counseling patient: Coding Level of Care Code 54778 SUB INP/OBS CARE 04/04MIN Diagnoses Septic shock A41.9; R65.21 Lactic acidosis E87.20 Multifocal pneumonia J18.9 Acute hypoxic respiratory failure J96.01 Respiratory arrest R09.2 Time Spent (min) 15
[2024-06-28] MEDS: METOPROLOL TARTRATE 1 MG/ML VIAL IV STA (15:10)
[2024-06-28] MEDS: LORazepam 2 MG/1 ML VIAL ONE (15:10)
[2024-06-28] MEDS: LORazepam 2 MG/1 ML VIAL IV STA (15:10)
[2024-06-28] MEDS ORDERED: MoRPHine SULFATE 2 MG/ML CARP IV PRN (15:51)
[2024-06-28] MEDS ORDERED: LORazepam 2 MG/1 ML VIAL IV PRN (16:53)
--- OUTSIDE RECORDS SUMMARY | 2024-06-28 16:53 | External Medical Summary | Continuity of Care Document ---
Author Name Unknown Organization [facility] [address] Address [address] [facility] JENNIFER [address] [id number] Care Team Providers Care Tick Sewer Name Role Phone Ag Reveles Primary Care Physician [phone] Encounter [facility] [id number] Date(s): 05/14/24 - 05/14/24 [facility] [address] [facility] 2 [place], [place] [id number] Encounter Diagnosis [place] of foot(Discharge Diagnosis) - 05/14/24 Lentigines(Discharge Diagnosis) - 05/14/24 Seborrheic keratoses(Discharge Diagnosis) - 05/14/24 Discharge Disposition: Home or Self Care Attending Physician: MD Dafne, Pravin Beltran Encounter Type: Clinic Allergies, Adverse Reactions, Alerts Substance Criticality Severity Reaction Reaction Severity Status Cipro Diarrhea Active Assessment and Plan Extracted from: Title:Clinical Document Author:MD Dafne, [facility] Devin Date:05/14/24 OUTPATIENT NOTE Name: SOFIA MOORE Patient Number:1 [id number] : 1935 Date of Service: 05/14/2024 _ Sofia Moore returns for skin examination. She notes no new or suspicious lesions. Review of systems medications allergies as noted on the chart. The patient is in stable health. Examination reveals pleasant well-nourished white female type I skin. Examination of the head, neck, back, chest, arms, hands, fingers, abdominal area, legs, feet, toes reveals a linear array of corns on the plantar metatarsal area. She has used duct tape on these in the past with good success thinking they were warts. If progressing could reapply duct tape to use as a keratolytic. There are multiple lentigines in sun exposed areas on the face, chest, extensor forearms. There are few scattered seborrheic keratoses. Examination is otherwise unremarkable. Patient will return in 1 year for reevaluation as per her preference Medications Centrum Silver Women[facility] Start: 11/30/14 2:17:00 PM EDT, 1 tab, PO, Daily Start Date: 11/30/14 Status: Suspended Repeat number: 1 Citracal + D Start: 11/30/14 2:16:00 PM EDT, PO, bid Start Date: 11/30/14 Status: Suspended Repeat number: 1 Claritin Start: 11/30/14 3:24:00 PM EDT Start Date: 11/30/14 Status: Suspended Repeat number: 1 clobetasol 0.05% topical cream Start: 04/03/17 1:26:00 PM EST, See Instructions, 1 appl topical twice daily Start Date: 04/03/17 Status: Ordered Repeat number: 1 Estrace Vaginal Cream Start: 04/20/13 11:06:00 AM EST, 1 g =, vaginal, 2 x weekly Start Date: 04/20/13 Status: Suspended Repeat number: 1 fluoride 1.1% topical gel Start: 05/14/24 1:40:00 PM EST Start Date: 05/14/24 Status: Ordered Repeat number: 1 fluticasone 50 mcg/inh nasal spray Start: 05/14/24 1:39:00 PM EST Start Date: 05/14/24 Status: Ordered Repeat number: 1 gabapentin 100 mg oral capsule TAKE 3 CAPSULES BY MOUTH AT BEDTIME Start Date: 04/15/19 Status: Ordered Repeat number: 1 guaiFENesin 100 mg/5 mL oral liquid Start: 05/14/24 1:40:00 PM EST Start Date: 05/14/24 Status: Ordered Repeat number: 1 ipratropium 42 mcg/inh (0.06%) nasal spray Start: 05/14/24 1:40:00 PM EST Start Date: 05/14/24 Status: Ordered Repeat number: 1 losartan 100 mg oral tablet Start: 11/30/14 3:22:00 PM EDT, 1 tab, PO, Daily Start Date: 11/30/14 Status: Suspended Repeat number: 1 omega-3 polyunsaturated fatty acids 1000 mg oral capsule Start: 03/06/13 11:25:00 AM EST, See Instructions, 2 caps po daily Start Date: 03/06/13 Status: Suspended Repeat number: 1 predniSONE 2.5 mg oral tablet Start: 12/23/12 3:13:00 PM EDT, 1 tab, PO, Every other day Start Date: 12/23/12 Status: Suspended Repeat number: 1 testosterone 2% cream Start: 12/23/12 3:12:00 PM EDT, 1% cream 2-3x/week Start Date: 12/23/12 Status: Suspended Repeat number: 1 triamcinolone 0.1% topical cream Start: 04/20/20 11:47:00 AM EST, 1 appl, topical, bid, Disp# 60 g, Refills: 1, apply to dermatitis on the leg until clear and then as needed, Pharmacy: [facility] Start Date: 04/20/20 Status: Ordered Quantity: 60.0 Unit: g Repeat number: 2 Tums 500 (1250 mg calcium carbonate) oral tablet, chewable Start: 11/20/13 12:24:00 PM EDT, 1 tab, PO, bid Start Date: 11/20/13 Status: Suspended Repeat number: 1 Vitamin D3 1000 intl units oral tablet Start: 11/30/14 2:16:00 PM EDT, 1 tab, PO, Daily Start Date: 11/30/14 Status: Suspended Repeat number: 1 Mental Status 05/14/24 Barriers to Learning one year None evide nt Mandatory Health Literacy Documentation Yes Communication Barrier Present Yes Health Literacy Communication Barriers N ever Primary Language Swedish Problem List Condition Confirmation Course Effective Dates Status Health St atus Informant Acid reflux Confirmed Active Cystocele Confirmed Active IBS (irritable bowel syndrome) Confirmed Active Incontinence Confirmed Active Polymyalgia Rheumatica Confirmed Active Post herpetic neuralgia Confirmed Active Prediabetic nonclinical diabetes Confirmed Active Urge incontinence Confirmed Active Diagnosis Diagnosis Type Effective Dates Health Status Clinical Service Informant Lentigines Discharge Diagnosis 05/14/24 [place] of foot Discharge Diagnosis 05/14/24 Seborrheic keratoses Discharge Diagnosis 05/14/24 Procedures Procedure Date Related Diagnosis Body Site Status Anterior colporrhaphy 12/08/14 Com pleted Cystourethroscopy 12/08/14 Complet ed Abdominal sacral colpopexy a nd cystoscopy, supracervical hysterectomy and bilateral salpingo-oophorectomy 2013 Completed Left Knee Arthroscopy 2010 C ompleted Carpal tunnel, Right 2 2009 Co mpleted Repair of vaginal fistula, R everse Perineoraphy 3 1999 Completed Cystocele, Rectocele 4 1983 Co mpleted Tonsillectomy 5 1941 Completed 1Repair L knee 2011 2R hand 2010 23203 4and Rectocele 1985 5Childhood Social History Social History Type Response Smoking Status Never smoked cigaret rodríguez Sex Female Sex Representation Female (finding) Outpatient Note * MD Dafne, Pravin Beltran: PERFORM Event Display: .Outpt Note Authored Date: [id number] OUTPATIENT NOTE Name: SOFIA MOORE Patient Number:1 [id number] : 1935 Date of Service: 05/14/2024 _ Sofia Moore returns for skin examination. She notes no new or suspicious lesions. Review of systems medications allergies as noted on the chart. The patient is in stable health. Examination reveals pleasant well-nourished white female type I skin. Examination of the head, neck, back, chest, arms, hands, fingers, abdominal area, legs, feet, toes reveals a linear array of corns on the plantar metatarsal area. She has used duct tape on these in the past with good success thinking they were warts. If progressing could reapply duct tape to use as a keratolytic. There are multiple lentigines in sun exposed areas on the face, chest, extensor forearms. There are few scattered seborrheic keratoses. Examination is otherwise unremarkable. Patient will return in 1 year for reevaluation as per her preference Electronic Signature on File Electronically Reviewed/Signed by: Pravin Leos MD Author Signature Dt/Tm:05/14/2024 02:08 PM Department of Dermatology [facility] Patient Care team information Care Team Personnel Name: DO Reveles Philip A Position: Referring Member Role: Primary Care Provider Address: [address] [place] [address] [place] Telecom: [phone] Name: SUHAIL Cruz Anna L Position: Nurse Pract - Female Pelvic Med Member Role: Lifetime Relationship Address: [address] [place] [address] [address] [place] [address] [place] Telecom: [phone] Care Team Related Persons Name: STEWART MOORE Insurance Providers Guarantor name: SOFIA MOORE Health Plan Information #: 1 Payer: [employer] Member Number: [id number] Policy Number: NA Group Number: [id number] Health Plan Information #: 2 Payer: [employer] Member Number: [id number] Policy Number: NA Group Number: [id number]
[2024-06-28] MEDS: LORazepam 2 MG/1 ML VIAL IV PRN ×2 (16:57→19:40)
[2024-06-28] MEDS: MoRPHine SULFATE 2 MG/ML CARP IV PRN ×2 (17:02→20:13)
[2024-06-28 17:34] VITALS: BP 102/60; PULSE 100; RESP 23; O2SAT 99
[2024-06-28] MEDS: GLYCOPYRROLATE 0.2 MG/ML VIAL IV SCH (17:47)
[2024-06-28] MEDS ORDERED: NALOXONE HCL 0.4 MG/1 ML VIAL/CARP IV PRN (20:13)
[2024-06-28] MEDS ORDERED: MoRPHine SULFATE PCA 30 MG/30 ML IV PRN (20:13)
[2024-06-28] MEDS ORDERED: MoRPHine BOLUS from BAG IV PRN (20:52)
[2024-06-28] MEDS ORDERED: STAT IV Infusion **Titration per Protocol STA (20:52)
[2024-06-28] MEDS: MoRPHine SULF 100 MG/100 ML BAG IV SCH (21:11)
--- NOTE | 2024-06-29 05:09 | Billing Data ---
Date of Service June 25, 2024 Coding Level of Care Code 99678 INT INP/OBS CARE
--- NOTE | 2024-06-29 06:41 | Death Pronouncement Note ---
Date of Service June 29, 2024 Pronouncement Note Admission Date Admission Date: June 25, 2024 Contributing Factors (1) Septic shock: (2) Lactic acidosis: (3) Multifocal pneumonia: (4) Acute hypoxic respiratory failure: (5) Respiratory arrest: Summary Additional details: I was called to pronounce the of Sofia Moore : 1935 by nursing on 06/29/2024 Upon entering the room, the patient was found to be in a terminal state. Patient was unresponsive to verbal and tactile stimuli. Patient unresponsive to corneal and pupillary reflexes. On cardiopulmonary exam, no carotid or radial pulses found and pt without spontaneous heart tones or respirations. Time of was pronounced by me on 06/29/2024 at 0415 Attending physician was notified. Next of kin was notified in the room Additional Data Attending physician: Lani Cortes DO
--- NOTE | 2024-06-29 09:01 | Electrocardiogram Report ---
Test Reason : Blood Pressure : */* mmHG Vent. Rate : 116 BPM Atrial Rate : * BPM P-R Int : * ms QRS Dur : 92 ms QT Int : 332 ms P-R-T Axes : * 70 -24 degrees QTcB Int : 461 ms Atrial fibrillation with rapid ventricular response with premature ventricular or aberrantly conducte d complexes Nonspecific T wave abnormality Abnormal ECG When compared with ECG of 26-Jun-2024 12:00, Atrial fibrillation has replaced Sinus rhythm Vent. rate has increased by 63 bpm T wave inversion now evident in Inferior leads Nonspecific T wave abnormality, worse in Anterior leads Confirmed by Kuldip Boss ([id number]) on 06/29/2024 9:00:43 AM Referred By: REFERRED SELF Confirmed By: Kuldip Boss
--- NOTE | 2024-06-29 17:08 | Discharge Summary ---
Discharge Summary Date of Service June 29, 2024 Principal Dx & Hospital Course #1 = Principal Diagnosis (1) Septic shock: (2) Lactic acidosis: (3) Multifocal pneumonia: (4) Acute hypoxic respiratory failure: (5) Respiratory arrest: (6) Cardiac arrest: Plan 88 yo female PMHx HTN, HLD, PMR, GERD, osteoarthritis, incontinence, admitted after presenting as a code blue with EMS s/p ROSC #Septic Shock/Respiratory Arrest/Multifocal Pneumonia she was intubated on admission, on pressor, cefepime, vancomycin and zpack Remains intubated, sedated on propofol and fentanyl she was extubated on 06/28/2024 but has difficulty with breath she was switched to [employer] status on 4pm (06/28/2024) of time 06/29/2024, 4:15am #Polymyalgia Rheumatica Not on chronic therapy #Other chronic conditions HTN - restart oral antihypertensives when appropriate Chronic cough - restart inhalers when appropriate FENGI: OG tube in place, nutrition consult ordered Code status: full code confirmed by DVT prophylaxis: per ICU Isolation: none Disposition: ICU Admission HPI Per Admitting Provider 88 yo female PMHx HTN, HLD, PMR, GERD, osteoarthritis, incontinence, admitted after presenting as a code blue with EMS. Chest compressions were performed. Per EMS, bradycardic to 30s prior to arrival. She received 2 of epinephrine and 1 of bicarb with ROSC. She was intubated and sedated. History is primarily obtained from . She was in her usual state of health until this evening. She finished dinner and began to have a coughing fit. Began expectorating reddish sputum and decompensated ultimately experiencing respiratory arrest. She is admitted to the ICU Hospital course She was CODE BLUE with EMS status post ROSC SC She was found to be in septic shock, bacterial pneumonia, COVID She was intubated and on pressor, she is status post left heart cath on June 26, cardiology does not suspect primary CAD She was on IV vancomycin and cefepime, the sputum culture grew pansensitive Pseudomonas On June 28, 2024 family request trial of extubation from the ventilator However after she was extubated she was in significant respiratory distress, at 4 PM family decided to switch to comfort measure She was started on morphine and Ativan, on June 29, 4:15 AM she passed peacefully Discharge Exam HEENT:AT/NC; no pupil reaction heart; no heart sound lung: no breath sound abdomen: soft to touch Neuro: no withdrawal to painful stimuli Discharge Plan Discharge Items Patient Disposition: Discharge Diagnosis: acute respiratory failure, cardiac arrest from hypoxic and septic shock bacterial pneumonia covid infection septic shock Other Date/Time: 06/29/24 04:00 Hospital Stay Data Consultations 06/25/24 22:43 ED Decision to Admit Stat 06/29/24 09:27 Consult Palliative Care Routine Procedures Performed Operation Date: 06/26/24 13:45 Actual Procedures p Right Heart Cath Only - Myke Smith MD s Fluoroscopy Up To 1 Hour - Myke Smith MD Diagnostic Imagining Performed 06/25/24 22:00 CT chest diagnostic wo con Stat 06/26/24 12:21 CL Cath Imgs for PACS use only Routine 06/26/24 13:33 CL Cath Imgs for PACS use only Stat Total Time Total Time Spent Total Time Spent (In Minutes): 25 minutes Coding Level of Care Code 89898 IN/OBS DISCH 30 MIN/LESS Diagnoses Septic shock A41.9; R65.21 Lactic acidosis E87.20 Multifocal pneumonia J18.9 Acute hypoxic respiratory failure J96.01 Respiratory arrest R09.2 Cardiac arrest I46.9 Time Spent (min) 25
--- NOTE | 2024-07-02 10:40 | Coding Query ---
CODING QUERY To promote full compliance with coding requirements relating to patient care, provider participation is requested in all cases of medical coder uncertainty. Please assist us with the question(s) below: Coding Question(s): NSTEMI, type II is listed under Plan but under cardiac the elevated troponin is likely demand ischemia, no mention of [place] on cardiac consult. Please clarify if this is NSTEMI or Demand Ischemia Physician's Response(s): demand ischemia Thank you Zoey Peterson Principal Diagnosis: "that condition established after study, to be chiefly responsible for occasioning the admission of the patient to the hospital for care." Co-Existing Principal Diagnosis: "when two or more diagnoses equally meet the criteria for principal diagnosis as determined by the circumstances of admission, diagnostic work up, and/or therapy provided, and the Alphabetic Index, Tabular List, or another coding guideline does not provide sequencing direction, any one of the diagnoses may be sequenced first." "When the physician has documented what appears to be a current diagnosis in the body of the record, but has not included the diagnosis in the final diagnostic statement, the physician should be asked whether the diagnosis should be added." (Source Coding Clinic 2 QTR90. p3-4) KATHIE
== END 2024-06-29 10:00 | disposition expired | DRG 871 ==
LOC: ED 21:29 → SUATTDRO 22:38 → 1E 22:38 → 3E 06-28 20:07
PROC: CLB.CRH (2024-06-26 13:45)
DX: K21.9 Gastro-esophageal reflux disease without esophagitis; R65.21 Severe sepsis with septic shock; Z79.899 Other long term (current) drug therapy; I10 Essential (primary) hypertension; Z82.49 Family history of ischemic heart disease and other diseases of the circulatory system; A41.9 Sepsis, unspecified organism; J06.9 Acute upper respiratory infection, unspecified; I46.8 Cardiac arrest due to other underlying condition; U07.1 COVID-19; R05.3 Chronic cough; I34.0 Nonrheumatic mitral (valve) insufficiency; I24.89 Other forms of acute ischemic heart disease; J81.1 Chronic pulmonary edema; Z66 Do not resuscitate; R73.9 Hyperglycemia, unspecified; E87.20 Acidosis, unspecified; E78.5 Hyperlipidemia, unspecified; Z88.1 Allergy status to other antibiotic agents; J12.82 Pneumonia due to coronavirus disease 2019; J15.1 Pneumonia due to Pseudomonas; E87.8 Other disorders of electrolyte and fluid balance, not elsewhere classified; E87.1 Hypo-osmolality and hyponatremia; J96.91 Respiratory failure, unspecified with hypoxia; Z51.5 Encounter for palliative care